=== PATIENT | male | born 1970 | race Caucasian/White ===

== ENCOUNTER 2017-11-09 21:44 | Emergency (ER) | payer MEDICARE, MEDICAID ==
[2017-11-09] MEDS ORDERED: Ibuprofen TAB* 200 MG PO ONE (22:11)
[2017-11-09 22:32] VITALS: BP 122/81
--- NOTE | 2017-11-16 14:30 | ED ---
Manan Correa Abhishek, scribed for Arabella Tirado MD on 11/09/17 at 2214 . Substance Abuse/Use - HPI Summary HPI Summary: This patient is a 47 year old M BIBA with a chief complaint of back pain since yesterday. Patient described the pain as constant and states that he is in a Drug rehab program for opiate abuse. Pertinent PMHx includes chronic back pain, and opiate substance abuse (Heroin). Pt later states he was able to obtain an illegal amount of opiates "off the streets." The patient rates the pain 7/10 in severity. Symptoms aggravated by nothing. Symptoms alleviated by nothing. Patient reports only seeing out of one eye, ear ache, MCELROY (chronic), chronic abd pain. Patient denies urinary incontinence, ambulation, irregular bowel movement , urinary burning, urinary pain, rashes, bruises. He frequents a pain clinic and is given different pain medications by different physicians. Last dosage of narcotics: oxycodone - two months ago, and suboxone - this morning. - History Of Current Complaint Chief Complaint: EDBackInjuryPain Stated Complaint: LOWER BACK PAIN Time Seen by Provider: 11/09/17 21:58 Hx Obtained From: Patient Ingestion History: Type/Name Of Drug - Opiates Timing Of Abuse: Intermittent Aggravating Factor(s): Nothing Alleviating Factor(s): Nothing Associated Signs And Symptoms: Other: - ear ache, MCELROY (chronic), chronic abd pain. Negative urinary incontinence, ambulation, irregular bowel movement, urinary burning, urinary pain, rashes, and bruises. Related Hx: Possible Multi Drug Ingestion, Prior Drug Abuse Counseling/Admission - Allergies/Home Medications Allergies/Adverse Reactions: Allergies Allergy/AdvReac Type Severity Reaction Status Date / Time Sulfamethoxazole Allergy Severe Anaphylatic Verified 11/01/16 14:11 w/Trimethoprim Shock [From Bactrim] Quinolones Allergy Unknown Unknown Verified 11/01/16 14:11 Reaction Details Tramadol Allergy Unknown Unknown Verified 11/01/16 14:11 Reaction Details Carbamazepine [From Tegretol] Allergy throat Verified 11/01/16 14:11 swelling Ciprofloxacin Allergy Anaphylatic Verified 11/01/16 14:11 Shock Erythromycin Allergy Hives Verified 11/01/16 14:11 Gabapentin [From Neurontin] Allergy sedation Verified 11/01/16 14:11 Iodinated Diagnostic Agents Allergy Anaphylatic Verified 11/01/16 14:11 Shock Ketorolac Tromethamine Allergy Vomiting Verified 11/01/16 14:11 [From Toradol] Moxifloxacin [From Avelox] Allergy Anaphylatic Verified 11/01/16 14:11 Shock Quetiapine [From Seroquel] Allergy See Comment Verified 11/01/16 14:11 Trazodone Allergy throat Verified 11/01/16 14:11 swells Valproic Acid [From Depakote] Allergy sedation Verified 11/01/16 14:11 Ziprasidone [From Geodon] Allergy See Comment Verified 11/01/16 14:11 PT HAS 39 MED ALLERGIES - Allergy See Comment Uncoded 11/01/16 14:11 ?NAMES PMH/Surg Hx/FS Hx/Imm Hx Endocrine/Hematology History: Denies: Hx Diabetes - "BORDERLINE"-CONTROLLED BY DIET, Hx Thyroid Disease Cardiovascular History: Denies: Hx Hypertension, Hx Pacemaker/ICD Respiratory History: Denies: Hx Asthma, Hx Chronic Obstructive Pulmonary Disease (COPD) GI History: Denies: Hx Ulcer History: Denies: Hx Renal Disease Sensory History: Denies: Hx Hearing Aid Neurological History: Reports: Other Neuro Impairments/Disorders - TERETS Psychiatric History: Reports: Hx Panic Disorder - ANXIETY - Surgical History Surgery Procedure, Year, and Place: Rt knee surgery- 1985 -. APPENDECTOMY. 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, LOWER BRAIN TISSUE REMOVED - DUE TO INFECTION, PLATE IN FOREHEAD - Immunization History Date of Tetanus Vaccine: UTD Date of Influenza Vaccine: 07/19/16 Infectious Disease History: No Infectious Disease History: Denies: Hx Hepatitis, Hx Human Immunodeficiency Virus (HIV), Traveled Outside the [place] in Last 30 Days - Family History Known Family History: Positive: Hypertension, Diabetes - Social History Alcohol Use: None Hx Substance Use: Yes Substance Use Type: Reports: Other - Opiates Substance Use Comment - Amount & Last Used: crack once in a while Smoking Status (MU): Current Every Day Smoker Type: Cigarettes Amount Used/How Often: 1/2 PPD Review of Systems Constitutional: Negative Eyes: Other - Only able to see out of one eye Positive: Ear Ache Cardiovascular: Negative Respiratory: Negative Gastrointestinal: Other - Negative bowel incontinence Positive: Abdominal Pain Negative: burning, incontinence, pain Musculoskeletal: Other - Negative ambulation Positive: Myalgia - Back pain Negative: Rash, Bruising Positive: Headache Psychological: Normal All Other Systems Reviewed And Are Negative: No Physical Exam - Summary Physical Exam Summary: Appearance: Alert, conversive, nontoxic appearing Skin: Warm, dry, no mottling, no rashes, no contusions HEENT: Right eye deviates out Neck: No masses on the neck, supple Respiratory: Clear to auscultation, breath sounds present, no rales, no rhonchi , no wheezes Cardiovascular: RRR, pulses are symmetrical in both lower and upper extremities Abdomen: No bowel incontinence Bowel Sounds: Present Musculoskeletal: No CVA tenderness, no obvious deformity, moving all extremities in a grossly normal manner Pt is able get up and get off the bed, able to ambulate but walking with his back hunched over Neurological: No saddle paresthesia, Genitourinary: No urinary incontinence, Psychiatric: Normal affect and mood Triage Information Reviewed: Yes Vital Signs On Initial Exam: Initial Vitals Temp Pulse Resp BP Pulse Ox 99.1 F 83 16 132/94 94 11/09/17 21:49 11/09/17 21:49 11/09/17 21:49 11/09/17 21:49 11/09/17 21:49 Vital Signs Reviewed: Yes Diagnostics - Vital Signs Vital Signs Temp Pulse Resp BP Pulse Ox 11/09/17 21:49 99.1 F 83 16 132/94 94 - Laboratory Lab Statement: Any lab studies that have been ordered have been reviewed, and results considered in the medical decision making process. Course/Dx - Course Course Of Treatment: The pt arrived to the [facility] via ambulance and presented chief complaint of back pain. Pt also reports of only seeing out of one eye, ear ache, MCELROY (chronic), chronic abd pain. Patient denies urinary incontinence, ambulation, irregular bowel movement, urinary burning, urinary pain, rashes, bruises. He frequents a pain clinic and is given different pain medications by different physicians. Pt is able get up and get off the bed, able to ambulate but walking with his back hunched over. We recommended following up with pain management doctor by tomorrow. Pt is also recommended to receive medication from only one doctor. The pt will be discharged home with a dx of narcotic dependence and chronic pain. Upon recieving discharge paperwork, pt was able to ambulate with no discomfort when leaving the [facility]. - Diagnoses Provider Diagnoses: Narcotic dependence, Chronic pain Discharge - Discharge Plan Condition: Stable Disposition: HOME Patient Education Materials: Chronic Back Pain (ED) Referrals: Ryan Villa MD [Primary Care Provider] - Additional Instructions: It is IMPERATIVE that all pain medications come from one physician, your pain management doctor. return if worse or any new symptoms. REturn if worse or any new symptoms. The documentation as recorded by the Manan vasquez Abhishek accurately reflects the service I personally performed and the decisions made by , Arabella Tirado MD.
== END 2017-11-09 22:30 | disposition home or self-care (01) ==
LOC: ED 21:44
DX: F11.20 Opioid dependence, uncomplicated (principal); T40.2X5A Adverse effect of other opioids, initial encounter; G89.29 Other chronic pain; F17.210 Nicotine dependence, cigarettes, uncomplicated; Z88.5 Allergy status to narcotic agent; Z88.8 Allergy status to other drugs, medicaments and biological substances; Z88.3 Allergy status to other anti-infective agents; Z91.041 Radiographic dye allergy status
CPT/HCPCS: 99282; A9270-GY

== ENCOUNTER 2017-11-14 13:33 | Emergency (ER) | payer MEDICARE, MEDICAID ==
--- NOTE | 2017-11-14 15:40 | UC ---
Boston Correa Gabriel, scribed for Micah Mcginnis MD on 11/14/17 at 1502 . Skin Complaint HPI - HPI Summary HPI Summary: This patient is a 47 year old M presenting to [facility] complaining of multiple issues, most began over a week ago. The patient rates the pain 6/10 in severity. Patient reports subjective fever, back pain, rash, diaphoresis, weakness in LE, difficulty swallowing, and productive cough with green sputum. Patient denies chills, vision change, and unilateral weakness. The pain from his lower back radiates into his legs, disabling him from walking for several days. He describes the rash as painful, oozing, blisters located on his back, buttocks, trunk, and testicles. He states he is constantly sweating. He believes his back pain is due to elevated LFTs and has a history of HEP C. Additionally he states when he exhales slowly it sounds like a cat meowing. He was seen in the ED 4 days ago and states they refused to perform tests on him and discharged him. - History of Current Complaint Chief Complaint: UCBackPain Stated Complaint: back pain, HIP PAIN, AND LEG PAIN Hx Obtained From: Patient Onset/Duration: Lasting Weeks, Still Present Onset Severity: Mild Current Severity: Mild Pain Intensity: 6 Pain Scale Used: 0-10 Numeric Character: Redness, Raised, Painful Associated Signs & Symptoms: Positive: Diaphoresis, Fever, Cough, Throat Tightening. Negative: Chills - Allergy/Home Medications Allergies/Adverse Reactions: Allergies Allergy/AdvReac Type Severity Reaction Status Date / Time Sulfamethoxazole Allergy Severe Anaphylatic Verified 11/01/16 14:11 w/Trimethoprim Shock [From Bactrim] Quinolones Allergy Unknown Unknown Verified 11/01/16 14:11 Reaction Details Tramadol Allergy Unknown Unknown Verified 11/01/16 14:11 Reaction Details Carbamazepine [From Tegretol] Allergy throat Verified 11/01/16 14:11 swelling Ciprofloxacin Allergy Anaphylatic Verified 11/01/16 14:11 Shock Erythromycin Allergy Hives Verified 11/01/16 14:11 Gabapentin [From Neurontin] Allergy sedation Verified 11/01/16 14:11 Iodinated Diagnostic Agents Allergy Anaphylatic Verified 11/01/16 14:11 Shock Ketorolac Tromethamine Allergy Vomiting Verified 11/01/16 14:11 [From Toradol] Moxifloxacin [From Avelox] Allergy Anaphylatic Verified 11/01/16 14:11 Shock Quetiapine [From Seroquel] Allergy See Comment Verified 11/01/16 14:11 Trazodone Allergy throat Verified 11/01/16 14:11 swells Valproic Acid [From Depakote] Allergy sedation Verified 11/01/16 14:11 Ziprasidone [From Geodon] Allergy See Comment Verified 11/01/16 14:11 PT HAS 39 MED ALLERGIES - Allergy See Comment Uncoded 11/01/16 14:11 ?NAMES Home Medications: Home Medications Buprenorphine HCl-Naloxone HCl [Suboxone 4-1 mg] 8 mg PO DAILY 11/14/17 [ History Confirmed 11/14/17] Cetirizine HCl [Zyrtec Allergy 10 MG TAB] 10 mg PO DAILY 11/14/17 [History Confirmed 11/14/17] Venlafaxine TAB (NF) [Effexor TAB (NF)] 35 mg PO DAILY 11/14/17 [History Confirmed 11/14/17] busPIRone TAB* [Buspar *] 30 mg PO BID 11/14/17 [History Confirmed 11/14/17] Review of Systems Constitutional: Fever, Other - diaphoresis Skin: Rash ENT: Other - throat tightness Respiratory: Cough Musculoskeletal: Other: - lower back pain, LE pain All Other Systems Reviewed And Are Negative: Yes PMH/Surg Hx/FS Hx/Imm Hx Endocrine History: Hyperthyroidism Cardiovascular History: Hypertension Other History Of: Hepatitis C - Surgical History Surgical History: Yes Surgery Procedure, Year, and Place: Rt knee surgery- 1985 -. APPENDECTOMY. 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, LOWER BRAIN TISSUE REMOVED - DUE TO INFECTION, PLATE IN FOREHEAD - Family History Known Family History: Positive: Cardiac Disease, Hypertension, Diabetes, Other - lung cancer - Social History Alcohol Use: None Substance Use Type: None Substance Use Comment - Amount & Last Used: crack once in a while Smoking Status (MU): Former Smoker Type: Cigarettes Amount Used/How Often: 1/2 PPD When Did the Patient Quit Smoking/Using Tobacco: 3 months Household Exposure Type: Cigarettes - Immunization History Most Recent Influenza Vaccination: 2016 Physical Exam Triage Information Reviewed: Yes Appearance: Well-Appearing, Pain Distress - mild low back Vital Signs: Initial Vital Signs Temp 96.8 F 11/14/17 13:57 Pulse 74 11/14/17 13:57 Resp 24 11/14/17 13:57 BP 139/94 11/14/17 13:57 Pulse Ox 100 11/14/17 13:57 Vital Signs Reviewed: Yes Eyes: Positive: Conjunctiva Clear ENT: Positive: Normal ENT inspection Neck: Positive: Supple, Nontender. Negative: Nuchal Rigidity Respiratory: Positive: Chest non-tender, Lungs clear, Normal breath sounds, No respiratory distress Cardiovascular: Positive: RRR, No Murmur Abdomen Description: Positive: Nontender Musculoskeletal: Positive: ROM Intact Neurological: Positive: Alert, Other: - his gait is broad based and appears to be uncomfortable walking due to his low back hurting. Psychological: Positive: Age Appropriate Behavior Skin: Positive: Other - he has a generalized rash that is scab like and primary with pustules. Located on trunk mainly. Course/Dx - Course Course Of Treatment: 47 yr old male who appears older than stated age with rash that he states initially appears with white pustules that pop and drain pus, and is painful but not puritic. He has low back pain. Reports sweats , fever, chills. DW Vinod Sellers MD at [facility] who is aware of the transfer. Patient to go there for further work up and diagnostic testing. - Diagnoses Provider Diagnoses: back pain. broad based gait. pustular and scab like rash. sweats and chills. Discharge - Discharge Plan Condition: Good Disposition: TRANS HIGHER LVL OF CARE FAC Referrals: Ryan Villa MD [Primary Care Provider] - The documentation as recorded by the Boston vasquez Gabriel accurately reflects the service I personally performed and the decisions made by , Micah Mcginnis MD.
[2017-11-14 15:48] VITALS: BP 121/80
== END 2017-11-14 16:07 | disposition short-term general hospital (02) ==
LOC: UCEAST 13:33
DX: M54.5 Low back pain (principal); R21 Rash and other nonspecific skin eruption; R68.83 Chills (without fever); R61 Generalized hyperhidrosis; R53.1 Weakness; R13.10 Dysphagia, unspecified; R05 Cough; E05.90 Thyrotoxicosis, unspecified without thyrotoxic crisis or storm; I10 Essential (primary) hypertension; Z86.19 Personal history of other infectious and parasitic diseases; Z90.89 Acquired absence of other organs; Z88.5 Allergy status to narcotic agent; Z88.2 Allergy status to sulfonamides; Z88.8 Allergy status to other drugs, medicaments and biological substances; Z88.1 Allergy status to other antibiotic agents; Z91.041 Radiographic dye allergy status; F14.90 Cocaine use, unspecified, uncomplicated; Z87.891 Personal history of nicotine dependence
CPT/HCPCS: 99213; G0463

== ENCOUNTER 2017-11-14 16:27 | Emergency (ER) | payer MEDICARE, MEDICAID ==
[2017-11-14 18:25] LABS: ABS Basophils 0.1 10^3/ul (0-0.2); ABS Eosinophils 0.4 10^3/ul (0-0.6); ABS Lymphocytes 3.2 10^3/ul (1.0-4.8); ABS Monocytes 1.2 10^3/ul (0-0.8); ABS Neutrophils 3.2 10^3/ul (1.5-7.7); ABS Nucleated RBC 0 10^3/ul; Eosinophil % 5.3 % (0-6); Hematocrit 42 % (42-52); Hemoglobin 14.1 g/dl (14.0-18.0); Lymphocyte % 39.7 % (25-47); Mean Corpuscular HGB Conc 34 g/dl (31-36); Mean Corpuscular Hemoglobin 31 pg (27-31); Mean Corpuscular Volume 91 fL (80-94); Mean Platelet Volume 7 um3 (7.4-10.4); Nucleated Red Blood Cells % 0.2; Platelet Count 261 10^3/ul (150-450); Red Blood Count 4.61 10^6/ul (4.0-5.4); Red Cell Distribution Width 14 % (10.5-15)
[2017-11-14 18:35] LABS: INR 0.9 (0.77-1.02)
[2017-11-14 18:39] LABS: EGFR Non-African American 86.4 (>60)
--- NOTE | 2017-11-14 18:42 | RAD ---
INDICATION: Generalized illness. Short of breath COMPARISON: April 23, 2005 TECHNIQUE: PA and lateral dual-energy views were obtained. FINDINGS: Bones/Soft Tissues: There are no acute bony findings. Cardiomediastinal: The cardiomediastinal silhouette is normal. Lungs: There are no infiltrates. Pleura: There are no pleural effusions. Other: None IMPRESSION: NO ACTIVE DISEASE.
[2017-11-14 20:44] VITALS: BP 126/86
[2017-11-14] MEDS ORDERED: Magic Mouth Was-BEN/MAAL/LIDO SWISH SPIT SCH (21:00)
--- NOTE | 2017-11-15 01:36 | ED ---
Complex/Multi-Sys Presentation - HPI Summary HPI Summary: Patient presents to the ED with multiple complaints. He states he has been experience back pain and weakness in the legs with other symptoms 6 times in the last 18 months. When he is having these symptoms, he states he is unable to walk long distances and feels very weak. He also notes to some mouth ulcers and diffuse rash to the chest. He has had these symptoms many times which has always improved with spontaneous resolution after 5 days. These symptoms always occur when his liver enzymes are elevated when he gets under stress. Hx of Hep C which he states "flares up" from time to time. Denies sick contacts. Denies fevers, chills but notes to some sweats intermittently. He is at cars currently in rehab. Last drug use 2 weeks ago. - History Of Current Complaint Chief Complaint: EDBackInjuryPain Time Seen by Provider: 11/14/17 16:45 Hx Obtained From: Patient Onset/Duration: Gradual Onset Timing: Constant Severity Currently: Mild Severity Initially: Mild Associated Signs And Symptoms: Positive: Immunocompromised - Allergies/Home Medications Allergies/Adverse Reactions: Allergies Allergy/AdvReac Type Severity Reaction Status Date / Time Sulfamethoxazole Allergy Severe Anaphylatic Verified 11/01/16 14:11 w/Trimethoprim Shock [From Bactrim] Quinolones Allergy Unknown Unknown Verified 11/01/16 14:11 Reaction Details Tramadol Allergy Unknown Unknown Verified 11/01/16 14:11 Reaction Details Carbamazepine [From Tegretol] Allergy throat Verified 11/01/16 14:11 swelling Ciprofloxacin Allergy Anaphylatic Verified 11/01/16 14:11 Shock Erythromycin Allergy Hives Verified 11/01/16 14:11 Gabapentin [From Neurontin] Allergy sedation Verified 11/01/16 14:11 Iodinated Diagnostic Agents Allergy Anaphylatic Verified 11/01/16 14:11 Shock Ketorolac Tromethamine Allergy Vomiting Verified 11/01/16 14:11 [From Toradol] Moxifloxacin [From Avelox] Allergy Anaphylatic Verified 11/01/16 14:11 Shock Quetiapine [From Seroquel] Allergy See Comment Verified 11/01/16 14:11 Trazodone Allergy throat Verified 11/01/16 14:11 swells Valproic Acid [From Depakote] Allergy sedation Verified 11/01/16 14:11 Ziprasidone [From Geodon] Allergy See Comment Verified 11/01/16 14:11 PT HAS 39 MED ALLERGIES - Allergy See Comment Uncoded 11/01/16 14:11 ?NAMES PMH/Surg Hx/FS Hx/Imm Hx Previously Healthy: Yes Endocrine/Hematology History: Reports: Hx Thyroid Disease - hyper Denies: Hx Diabetes - "BORDERLINE"-CONTROLLED BY DIET Cardiovascular History: Denies: Hx Hypertension, Hx Pacemaker/ICD Respiratory History: Denies: Hx Asthma, Hx Chronic Obstructive Pulmonary Disease (COPD) GI History: Denies: Hx Ulcer History: Denies: Hx Renal Disease Sensory History: Denies: Hx Hearing Aid Neurological History: Reports: Other Neuro Impairments/Disorders - TERETS Psychiatric History: Reports: Hx Panic Disorder - ANXIETY - Surgical History Surgery Procedure, Year, and Place: Rt knee surgery- 1985 -. APPENDECTOMY. 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, LOWER BRAIN TISSUE REMOVED - DUE TO INFECTION, PLATE IN FOREHEAD - Immunization History Date of Tetanus Vaccine: UTD Date of Influenza Vaccine: 07/19/16 Hx Pertussis Vaccination: No Immunizations Up to Date: Unable to Obtain/Confirm Infectious Disease History: Yes Infectious Disease History: Reports: Hx Hepatitis - Hep C Denies: Hx Human Immunodeficiency Virus (HIV), Traveled Outside the [place] in Last 30 Days - Family History Known Family History: Positive: Cardiac Disease, Hypertension, Diabetes, Other - lung cancer - Social History Occupation: Unemployed Lives: Alone Alcohol Use: None Hx Substance Use: No Substance Use Type: Reports: None Substance Use Comment - Amount & Last Used: crack once in a while Smoking Status (MU): Former Smoker Type: Cigarettes Amount Used/How Often: 1/2 PPD Review of Systems Constitutional: Negative Negative: Fever, Chills, Fatigue Eyes: Negative Positive: Other - lesions in the mouth Cardiovascular: Negative Respiratory: Negative Genitourinary: Negative Positive: no symptoms reported, see HPI Positive: Arthralgia - bilateral leg pain Positive: Weakness, Paresthesia Psychological: Normal All Other Systems Reviewed And Are Negative: Yes Physical Exam Triage Information Reviewed: Yes Vital Signs On Initial Exam: Initial Vitals Temp Pulse Resp BP Pulse Ox 98 F 57 12 124/90 94 11/14/17 16:49 11/14/17 16:49 11/14/17 16:49 11/14/17 16:49 11/14/17 16:49 Vital Signs Reviewed: Yes Appearance: Positive: Well-Appearing, No Pain Distress, Well-Nourished Skin: Positive: Warm, Skin Color Reflects Adequate Perfusion Head/Face: Positive: Normal Head/Face Inspection Eyes: Positive: EOMI, PARVEZ, Conjunctiva Clear ENT: Positive: Other - small ulcerations to the inner buccal mucosa Neck: Positive: Supple, No Lymphadenopathy Respiratory/Lung Sounds: Positive: Breath Sounds Present Cardiovascular: Positive: RRR, Pulses are Symmetrical in both Upper and Lower Extremities Musculoskeletal: Positive: Other - patient is ambulating, but with pain. no weakness bilaterally is noted on exam Neurological: Positive: Alert, Oriented to Person Place, Time, CN Intact II-III , Speech Normal. Negative: Pronator Drift Present Psychiatric: Positive: Normal, Affect/Mood Appropriate AVPU Assessment: Alert - [place] Coma Scale Coma Scale Total: 15 Diagnostics - Vital Signs Vital Signs Temp Pulse Resp BP Pulse Ox 11/14/17 20:43 98.4 F 67 16 126/86 94 11/14/17 16:49 98 F 57 12 124/90 94 - Laboratory Lab Results: Lab Results 11/14/17 11/14/17 11/14/17 Range/Units 18:03 18:03 18:03 WBC 8.0 (3.5-10.8) 10^3/ul RBC 4.61 (4.0-5.4) 10^6/ul Hgb 14.1 (14.0-18.0) g/dl Hct 42 (42-52) % MCV 91 (80-94) fL MCH 31 (27-31) pg MCHC 34 (31-36) g/dl RDW 14 (10.5-15) % Plt Count 261 (150-450) 10^3/ul MPV 7 L (7.4-10.4) um3 Neut % (Auto) 39.5 (38-83) % Lymph % (Auto) 39.7 (25-47) % Bradley % (Auto) 14.8 H (1-9) % Eos % (Auto) 5.3 (0-6) % Baso % (Auto) 0.7 (0-2) % Absolute Neuts (auto) 3.2 (1.5-7.7) 10^3/ul Absolute Lymphs (auto) 3.2 (1.0-4.8) 10^3/ul Absolute Monos (auto) 1.2 H (0-0.8) 10^3/ul Absolute Eos (auto) 0.4 (0-0.6) 10^3/ul Absolute Basos (auto) 0.1 (0-0.2) 10^3/ul Absolute Nucleated RBC 0 10^3/ul Nucleated RBC % 0.2 ESR 19 H (0-14) mm/Hr INR (Anticoag Therapy) 0.90 (0.77-1.02) APTT 30.2 (26.0-36.3) seconds Sodium 135 (133-145) mmol/L Potassium 3.8 (3.5-5.0) mmol/L Chloride 102 (101-111) mmol/L Carbon Dioxide 28 (22-32) mmol/L Anion Gap 5 (2-11) mmol/L BUN 11 (6-24) mg/dL Creatinine 0.94 (0.67-1.17) mg/dL Est GFR ( Amer) 111.1 (>60) Est GFR (Non-Af Amer) 86.4 (>60) BUN/Creatinine Ratio 11.7 (8-20) Glucose 96 (70-100) mg/dL Lactic Acid (0.5-2.0) mmol/L Calcium 9.3 (8.6-10.3) mg/dL Total Bilirubin 0.50 (0.2-1.0) mg/dL AST 60 H (13-39) U/L ALT 91 H (7-52) U/L Alkaline Phosphatase 65 (34-104) U/L C-Reactive Protein 14.97 H (< 5.00) mg/L Total Protein 7.4 (6.4-8.9) g/dL Albumin 4.0 (3.2-5.2) g/dL Globulin 3.4 (2-4) g/dL Albumin/Globulin Ratio 1.2 (1-3) Influenza A (Rapid) (Negative) Influenza B (Rapid) (Negative) 11/14/17 11/14/17 Range/Units 18:03 18:21 WBC (3.5-10.8) 10^3/ul RBC (4.0-5.4) 10^6/ul Hgb (14.0-18.0) g/dl Hct (42-52) % MCV (80-94) fL MCH (27-31) pg MCHC (31-36) g/dl RDW (10.5-15) % Plt Count (150-450) 10^3/ul MPV (7.4-10.4) um3 Neut % (Auto) (38-83) % Lymph % (Auto) (25-47) % Bradley % (Auto) (1-9) % Eos % (Auto) (0-6) % Baso % (Auto) (0-2) % Absolute Neuts (auto) (1.5-7.7) 10^3/ul Absolute Lymphs (auto) (1.0-4.8) 10^3/ul Absolute Monos (auto) (0-0.8) 10^3/ul Absolute Eos (auto) (0-0.6) 10^3/ul Absolute Basos (auto) (0-0.2) 10^3/ul Absolute Nucleated RBC 10^3/ul Nucleated RBC % ESR (0-14) mm/Hr INR (Anticoag Therapy) (0.77-1.02) APTT (26.0-36.3) seconds Sodium (133-145) mmol/L Potassium (3.5-5.0) mmol/L Chloride (101-111) mmol/L Carbon Dioxide (22-32) mmol/L Anion Gap (2-11) mmol/L BUN (6-24) mg/dL Creatinine (0.67-1.17) mg/dL Est GFR ( Amer) (>60) Est GFR (Non-Af Amer) (>60) BUN/Creatinine Ratio (8-20) Glucose (70-100) mg/dL Lactic Acid 0.6 (0.5-2.0) mmol/L Calcium (8.6-10.3) mg/dL Total Bilirubin (0.2-1.0) mg/dL AST (13-39) U/L ALT (7-52) U/L Alkaline Phosphatase (34-104) U/L C-Reactive Protein (< 5.00) mg/L Total Protein (6.4-8.9) g/dL Albumin (3.2-5.2) g/dL Globulin (2-4) g/dL Albumin/Globulin Ratio (1-3) Influenza A (Rapid) Negative (Negative) Influenza B (Rapid) Negative (Negative) Result Diagrams: 11/14/17 18:03 11/14/17 18:03 Lab Statement: Any lab studies that have been ordered have been reviewed, and results considered in the medical decision making process. Complex Multi-Symp Course/Dx Course Of Treatment: During the course of treatment, patient is evaluated for multiple complaints. Flu negative. All labs are negative. Chest xray negative. D/t spontaneous resolution (like his other episodes) - CT will not offer much help. He is referred back to his PCP for further evaluation and defer to them for any imaging. He is OK with this plan. I have given him magic mouth wash for some ulcerations in the mouth. No other signs of a herpetic infection. - Diagnoses Provider Diagnoses: Back pain, Mouth ulcer Discharge - Discharge Plan Condition: Stable Disposition: HOME Forms: *Gen. Provider Communication Referrals: Ryan Villa MD [Primary Care Provider] - Additional Instructions: Magic mouth wash up to every 4 hours as needed for mouth pain Please follow up with your PCP within 1 week. As discussed, your xray, flu and all labs were OK today. Nothing was found to be a source of your back pain, I recommend follow up with PCP to further investigate this.
== END 2017-11-14 20:43 | disposition home or self-care (01) ==
LOC: ED 16:27
DX: M54.9 Dorsalgia, unspecified (principal); K12.0 Recurrent oral aphthae; R53.1 Weakness; Z87.891 Personal history of nicotine dependence
CPT/HCPCS: 36415; 71046; 80053; 83605; 85025; 85610; 85652; 85730; 86140; 87040; 87502; 99283; A9270-GY

== ENCOUNTER 2017-11-28 11:58 | Emergency (ER) | payer MEDICARE, MEDICAID ==
--- OUTSIDE RECORDS SUMMARY | 2017-11-28 12:17 | XMS REPORT ---
:1970 External Reference #:[id number] Author Organization [facility] Address [address] [address] Phone [phone] Care Team Providers Name Role Phone Ryan Villa MD Primary Care Physician Unavailable Payers Type Date Identification Numbers Payment Provider Subscriber Medicare Primary Policy Number: [id number] Medicare Altagracia Rodriguez PayID: [id number] [address] [place] [address] Medigap Part B Expires: 2016 Policy Number: [id number] Medicaid Altagracia Rodriguez Group Name: [id number] [address] PayID: [id number] [place] [address] Medigap Part B Effective: 2017 Policy Number: [id number] Medicaid Altagracia Rodriguez Group Name: 1 1 [address] PayID: [id number] [place] [address] Problems Date Description Provider Status Onset: 12/20/2011 Chronic pain syndrome Temi Israel M.D. Active Onset: 08/30/2016 Anxiety state Estrella Cooper MD Active Onset: 08/30/2016 Insomnia Estrella Cooper MD Active Family History Date Family Member(s) Problem(s) Comments General Liver Cancer Father Skin cancer ; at HTN, Heart disease age83 Mother at age 73 chronic sinusitis RA, Cancer, unknown primary, COPD/Lung cancer Siblings 2 One brother healthy Other sinusitis, arthritis, ?COPD Social History Type Date Description Comments Marital Status Occupation Unemployed; looking for work Cigarette Use Bought Nicotine patch; has not started using ETOH Use Denies alcohol use Allergic to ETOH Smoking Patient is a current smoker, smokes every day Recreational Drug Use Denies Drug Use 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 Attending [employer] Smoking Light tobacco smoker (10 or fewer cigarettes/day) Smoking 1 1/2PPD x 33 years Daily Caffeine Consumes on average 1 cup of regular coffee per day Daily Caffeine Soda 1-2 times/week ; coffee Drinks mostly juice 1-2/week Exercise Type/Frequency Exercises regularly (walks a lot) General Hx Text lives alone cig 1/2-1 pk/d 33 yr etoh no exercise no caffeine occas. Allergies, Adverse Reactions, Alerts Date Description Reaction Status Severity Comments 12/14/2011 Neurontin Shock active 12/14/2011 Depakote Shock active 12/14/2011 Floxin Paralyzed from the active waist down 12/14/2011 Trazodone Anaphylaxis active 12/14/2011 Gabapentin active 12/14/2011 Carbamazepine active 12/14/2011 Erythromycin Nausea and Vomiting active 12/14/2011 Levaquin Contact dermatitis, active Nausea and Vomiting 12/14/2011 Ofloxacin Contact dermatitis, active Nausea and Vomiting 12/14/2011 Quinolones active 12/14/2011 Avelox active 04/04/2015 Seroquel active involentary movements 04/04/2015 Geodon active bad effect 04/04/2016 Bactrim- ds active throat swelling 10/12/2016 Tramadol active Moderate Medications Medication Date Status Form Strength Qnty SIG Indications Ordering Provider Ketoconazole 25/ Active Powder 100gm Apply to B35.3 Brad 2017 affected JUSTEN Yuan areas twice daily Buspirone HCL 07/29/ Active Tablets 10mg 90tabs take 2 Brad 2017 tablets by JUSTEN Yuan mouth 2 times daily. Increase to 2 1/2 tbs bid after 3 days. Can increase 3 tablets bid after 3 days Buspirone HCL 25/ Active Tablets 10mg 90tabs take 2 Brad 2017 tablets by JUSTEN Yuan mouth 2 times daily. Increase to 2 1/2 tbs bid after 3 days. Can increase 3 tablets bid after 3 days Hydroxyzine HCL 06/19/ Active Tablets 50mg 120tab 1-2 G47.00 Brad 2017 s tablets 4 JUSTEN Yuan times daily as needed for itching Ambien 03/07/ Active Tablets 5mg 30tabs 1 tab by Estrella Royal mouth MD Allison every night as needed Pepcid 04/04/ Active Tablets 20mg 60tabs take 1 K21.9 Brad 2016 tablet by JUSTEN Yuan mouth two times daily as needed Meclizine / Active Capsules 25mg as needed Unknown 0000 Singulair 00/ Active Tablets 10mg 1 by mouth Unknown 0000 every day prn Permethrin 06/19/ Hx Cream 5% 60gm apply R21 Brad 2016 - cream from JUSTEN Yuan 07/29/ your neck 2017 to the soles of your feet. let sit for 8-14 hours and wash off. repeat in 7 days. Buspirone HCL 06/19/ Hx Tablets 5mg 180tab take 2 11/05 Brad 2017 - s tab twice JUSTEN Yuan 07/29/ a day x 3 2016 days then increase to 3 tab twice a day tab bid. Nicotine 06/11/ Hx Lozenges 4mg 60unit 1 by mouth Estrella Polacrilex 2017 - s every 4 MD Allison 07/15/ hours as 2017 needed Lunesta 01/08/ Hx Tablets 2mg 30tabs 1 tablet Estrella 2016 - by mouth MD Allison 04/15/ for sleep 2017 as needed Xanax 01/08/ Hx Tablets 1mg 60tabs 1-2 tabs Estrella 2016 - as needed MD Allison 07/15/ for sleep 2017 Xanax XR 11/26/ Hx Tablets ER 2mg 30tabs 1 tablet G47.00 Estrella 2016 - 24HR at bedtime MD Allison 11/27/ for 2017 anxiety Lunesta 11/26/ Hx Tablets 1mg 30tabs 1 tab by G47.00 Estrella 2017 - mouth MD Allison 01/08/ every 2016 night as needed for sleep Azithromycin 11/01/ Hx Tablets 250mg 6tabs 2 tabs by J01.90 Brad 2015 - mouth JUSTEN Yuan 11/06/ every day 2017 x1 day, 1 tab by mouth every day x 4 days Xanax XR 08/30/ Hx Tablets ER 2mg 30tabs 1 tablet F41.9 Estrella 2015 - 24HR at bedtime MD Allison 08/30/ for 2016 anxiety Xanax 08/30/ Hx Tablets 2mg 30tabs 1 tablet Estrella 2015 - at bedtime MD Allison 01/08/ for 2017 anxiety Oxycodone HCL 08/27/ Hx Tablets 5mg 28tabs 1 tablet R10.9 [place] 2015 - every 12 JUSTEN Yuan 06/23/ hours as 2017 needed for pain. Oxycodone HCL 08/13/ Hx Tablets 5mg 14tabs 1 tablet R10.9 Brad 2015 - every 12 JUSTEN Yuna 08/23/ hours as 2015 needed for pain Oxycodone HCL 07/30/ Hx Tablets 5mg 14tabs 1 tablet R10.9 [place] 2015 - every 12 JUSTEN Yuan 08/06/ hours as 2015 needed for pain Ketoconazole 07/30/ Hx Cream 2% 15gm apply to [place] 2015 - affected JUSTEN Yuan 08/29/ area twice 2015 daily Dexilant 04/11/ Hx Capsules 30mg 30caps one K21.9 [place] 2015 - capsule JUSTEN Yuan 07/30/ daily 2016 No Active 04/04/ Hx Unknown Medications 2015 - 2015 Lansoprazole 04/04/ Hx Capsules 15mg 30caps 1 tablet K21.9 [place] 2016 - DR daily JUSTEN Yuan 2015 Lunesta 04/04/ Hx Tablets 2mg 30tabs one tablet G47.00 [place] 2015 - by mouth JUSTEN Yuan 11/25/ 2016 night at bedtime as needed for insomnia Hydrocodone/Rafael / Hx Tablets 10-325mg 80tabs 2 po q 6 Temi taminophen 0000 - hrs prn Jhonatan, 04/04/ pain M.D. 2012 Methadose / Hx Tablets 10mg 40tabs 1 po q Temi 0000 - 6hrs prn Jhonatan, 04/04/ pain M.D. 2012 Xanax / Hx Tablets 1mg 40tabs 1 po q Temi 0000 - 6hrs prn Jhonatan, 04/04/ pain M.D. 2011 Ambien / Hx Tablets 10mg 30tabs 1 po qhs Unknown 0000 - prn sleep 04/04/ insomnia 2012 Celexa / Hx Tablets 40mg 30tabs 1 po qd Unknown 0000 - 2011 Dexamethasone / Hx Tablets 4mg Take One Unknown 0000 - Tablet By 08/23/ Mouth 2015 Every Day For 7 Days Azithromycin / Hx Tablets 250mg Take 2 Unknown 0000 - Tablets By 08/29/ Mouth On 2015 Day 1 Then 1 Tablet Once Daily On Days 2 10 Prednisone / Hx Tablets 20mg 1 by mouth Unknown 0000 - every day (rx'd by 2015 ENT) Prednisone / Hx Tablets 20mg 20mg daily Unknown 0000 - 2015 Immunizations CPT Code Status Date Vaccine Reaction Lot # [id number] Given 07/29/2017 Influenza Virus Vaccine, No immediate [id number] Quadrivalent, Split, reaction..jh Preservative Free [id number] Given 08/24/2016 Tdap - no immediate adverse [id number] Tetanus/Diptheria/Acellular reaction noted Pertussis [id number] Given 08/24/2016 Influenza Virus Vaccine, no immediate reaction [id number] Quadrivalent, Split Virus, noted Im Use Vital Signs Date Vital Result Comment 11/25/2017 Height 65.5 inches 5'5.50" Weight 182.50 lb Heart Rate 60 /min BP Systolic Sitting 120 mmHg BP Diastolic Sitting 78 mmHg Respiratory Rate 14 /min Body Temperature 97.0 F BMI (Body Mass Index) 29.9 kg/m2 07/29/2017 Height 65.5 inches 5'5.50" Weight 146.00 lb Heart Rate 97 /min BP Systolic Sitting 118 mmHg BP Diastolic Sitting 80 mmHg O2 % BldC Oximetry 98 % BMI (Body Mass Index) 23.9 kg/m2 07/15/2017 Height 65.5 inches 5'5.50" Weight 143.12 lb Heart Rate 98 /min BP Systolic Sitting 120 mmHg BP Diastolic Sitting 80 mmHg Body Temperature 98.3 F O2 % BldC Oximetry 98 % BMI (Body Mass Index) 23.5 kg/m2 06/19/2017 Height 65.5 inches 5'5.50" Weight 143.12 lb Heart Rate 83 /min BP Systolic 100 mmHg BP Diastolic 60 mmHg Body Temperature 97.5 F O2 % BldC Oximetry 99 % BMI (Body Mass Index) 23.5 kg/m2 05/27/2017 Height 65.5 inches 5'5.50" Weight 142.00 lb Heart Rate 100 /min BP Systolic Sitting 124 mmHg BP Diastolic Sitting 88 mmHg Respiratory Rate 14 /min O2 % BldC Oximetry 98 % BMI (Body Mass Index) 23.3 kg/m2 04/16/2017 Height 65.5 inches 5'5.50" Weight 140.25 lb Heart Rate 84 /min BP Systolic Sitting 120 mmHg BP Diastolic Sitting 78 mmHg Respiratory Rate 14 /min Body Temperature 96.9 F BMI (Body Mass Index) 23.0 kg/m2 12/03/2016 Height 65.5 inches 5'5.50" Weight 159.00 lb Heart Rate 90 /min BP Systolic Sitting 110 mmHg BP Diastolic Sitting 80 mmHg Respiratory Rate 14 /min Body Temperature 97.6 F BMI (Body Mass Index) 26.1 kg/m2 11/26/2016 Height 65.5 inches 5'5.50" Weight 155.00 lb Heart Rate 92 /min BP Systolic 106 mmHg BP Diastolic 72 mmHg Respiratory Rate 14 /min O2 % BldC Oximetry 98 % BMI (Body Mass Index) 25.4 kg/m2 11/20/2016 Height 65.5 inches 5'5.50" Weight 155.00 lb Heart Rate 108 /min BP Systolic 110 mmHg BP Diastolic 80 mmHg Body Temperature 98.0 F O2 % BldC Oximetry 98 % BMI (Body Mass Index) 25.4 kg/m2 11/01/2016 Height 65.5 inches 5'5.50" Weight 154.00 lb Heart Rate 91 /min BP Systolic 112 mmHg BP Diastolic 80 mmHg Body Temperature 98.4 F O2 % BldC Oximetry 98 % BMI (Body Mass Index) 25.2 kg/m2 10/12/2016 Height 65.5 inches 5'5.50" Weight 157.00 lb Heart Rate 83 /min BP Systolic 98 mmHg BP Diastolic 78 mmHg Body Temperature 97.3 F O2 % BldC Oximetry 98 % BMI (Body Mass Index) 25.7 kg/m2 09/26/2016 Weight 162.00 lb Heart Rate 100 /min BP Systolic Sitting 138 mmHg BP Diastolic Sitting 98 mmHg Respiratory Rate 15 /min Body Temperature 98.2 F O2 % BldC Oximetry 98 % 09/18/2016 Height 65.5 inches 5'5.50" Weight 162.50 lb Heart Rate 100 /min BP Systolic Sitting 112 mmHg BP Diastolic Sitting 80 mmHg Respiratory Rate 14 /min Body Temperature 97.4 F BMI (Body Mass Index) 26.6 kg/m2 08/30/2016 Height 65.5 inches 5'5.50" Weight 163.25 lb Heart Rate 102 /min BP Systolic Sitting 130 mmHg BP Diastolic Sitting 72 mmHg Respiratory Rate 16 /min O2 % BldC Oximetry 97 % BMI (Body Mass Index) 26.8 kg/m2 Neck Circumference in inches 15.5 08/27/2016 Weight 161.00 lb with shoes Heart Rate 94 /min BP Systolic Sitting 124 mmHg BP Diastolic Sitting 74 mmHg Body Temperature 96.1 F O2 % BldC Oximetry 98 % 08/24/2016 Height 65 inches 5'5" Weight 159.12 lb Heart Rate 84 /min BP Systolic Sitting 124 mmHg BP Diastolic Sitting 80 mmHg Respiratory Rate 14 /min Body Temperature 97.7 F BMI (Body Mass Index) 26.5 kg/m2 07/30/2016 Weight 157.00 lb Heart Rate 98 /min BP Systolic Sitting 122 mmHg BP Diastolic Sitting 76 mmHg Respiratory Rate 15 /min Body Temperature 98.4 F O2 % BldC Oximetry 98 % 04/04/2016 Height 65 inches 5'5" Weight 165.25 lb Heart Rate 78 /min BP Systolic Sitting 98 mmHg BP Diastolic Sitting 64 mmHg Body Temperature 98.4 F O2 % BldC Oximetry 98 % BMI (Body Mass Index) 27.5 kg/m2 02/05/2012 Height 64.50 inches 5'4.50" Est Weight 145.00 lb Heart Rate 100 /min BP Systolic Sitting 134 mmHg BP Diastolic Sitting 80 mmHg BMI (Body Mass Index) 24.5 kg/m2 12/14/2011 Height 64.50 inches 5'4.50" Est Weight 144.00 lb Heart Rate 80 /min BP Systolic Sitting 130 mmHg BP Diastolic Sitting 90 mmHg BMI (Body Mass Index) 24.3 kg/m2 Results Test Date Test Result H/L Range Note Laboratory test finding 11/14/2017 Erythrocyte Sed Rate 19 mm/Hr High 0- 14 Blood Culture SEE RESULT BELOW 1 CBC Auto Diff 11/14/2017 White Blood Count 8.0 10^3/uL 3.5-10.8 Red Blood Count 4.61 10^6/uL 4.0-5.4 Hemoglobin 14.1 g/dL 14.0-18.0 Hematocrit 42 % 42-52 Mean Corpuscular Volume 91 fL 80-94 Mean Corpuscular Hemoglobin 31 pg 27-31 Mean Corpuscular HGB Conc 34 g/dL 31-36 Red Cell Distribution Width 14 % 10.5-15 Platelet Count 261 10^3/uL 150-450 Mean Platelet Volume 7 um3 Low 7.4-10.4 Abs Neutrophils 3.2 10^3/uL 1.5-7.7 Abs Lymphocytes 3.2 10^3/uL 1.0-4.8 Abs Monocytes 1.2 10^3/uL High 0-0.8 Abs Eosinophils 0.4 10^3/uL 0-0.6 Abs Basophils 0.1 10^3/uL 0-0.2 Abs Nucleated RBC 0 10^3/uL Granulocyte % 39.5 % 38-83 Lymphocyte % 39.7 % 25-47 Monocyte % 14.8 % High 1-9 Eosinophil % 5.3 % 0-6 Basophil % 0.7 % 0-2 Nucleated Red Blood Cells % 0.2 Laboratory test finding 11/14/2017 C Reactive Protein 14.97 mg/L High &lt ; 5.00 2 Lactic Acid 0.6 mmol/L 0.5-2.0 3 Comp Metabolic Panel 11/14/2017 Sodium 135 mmol/L 133-145 Potassium 3.8 mmol/L 3.5-5.0 Chloride 102 mmol/L 101-111 Co2 Carbon Dioxide 28 mmol/L 22-32 Anion Gap 5 mmol/L 2-11 Glucose 96 mg/dL 70-100 Blood Urea Nitrogen 11 mg/dL 6-24 Creatinine 0.94 mg/dL 0.67-1.17 BUN/Creatinine Ratio 11.7 8-20 Calcium 9.3 mg/dL 8.6-10.3 Total Protein 7.4 g/dL 6.4-8.9 Albumin 4.0 g/dL 3.2-5.2 Globulin 3.4 g/dL 2-4 Albumin/Globulin Ratio 1.2 1-3 Total Bilirubin 0.50 mg/dL 0.2-1.0 Alkaline Phosphatase 65 U/L 34-104 Alt 91 U/L High 7-52 Ast 60 U/L High 13-39 Egfr Non- 86.4 >60 Egfr 111.1 >60 4 Laboratory test 11/14/2017 Partial Thrombo Time 30.2 seconds 26.0-36.3 finding PTT Inr/Protime 11/14/2017 Inr 0.90 0.77-1.02 Laboratory test 11/14/2017 Rapid Influenza A B SEE RESULT BELOW 5 finding Antigen Rapid Influenza A 11/14/2017 Influenza A NEGATIVE Negative 6 & B Molecular Molecular Influenza B Molecular NEGATIVE Negative Laboratory test finding 11/14/2017 Blood Culture SEE RESULT BELOW 7 Urinalysis Profile 10/02/2017 Urine Color Yellow 8 Urine Appearance Clear 8 Urine Specific [place] 1.020 1.010-1.030 8 Urine pH 5.0 5-9 8 Urine Urobilinogen Negative Negative 8 Urine Ketones Negative Negative 8 Urine Protein Negative Negative 8 Urine Leukocytes Negative Negative 8 Urine Blood Negative Negative 8 * * Negative 8, 9 Urine Nitrite Negative Negative 8 Urine Bilirubin Negative Negative 8 Urine Glucose Negative Negative 8 CBC Auto Diff 10/02/2017 White Blood Count 11.0 10^3/uL High 3.5-10.8 8 Red Blood Count 4.81 10^6/uL 4.0-5.4 8 Hemoglobin 14.5 g/dL 14.0-18.0 8 Hematocrit 44 % 42-52 8 Mean Corpuscular Volume 91 fL 80-94 8 Mean Corpuscular Hemoglobin 30 pg 27-31 8 Mean Corpuscular HGB Conc 33 g/dL 31-36 8 Red Cell Distribution Width 15 % 10.5-15 8 Platelet Count 305 10^3/uL 150-450 8 Mean Platelet Volume 8 um3 7.4-10.4 8 Abs Neutrophils 5.1 10^3/uL 1.5-7.7 8 Abs Lymphocytes 4.5 10^3/uL 1.0-4.8 8 Abs Monocytes 1.2 10^3/uL High 0-0.8 8 Abs Eosinophils 0.1 10^3/uL 0-0.6 8 Abs Basophils 0.1 10^3/uL 0-0.2 8 Abs Nucleated RBC 0.02 10^3/uL 8 Granulocyte % 46.6 % 38-83 8 Lymphocyte % 41.1 % 25-47 8 Monocyte % 10.5 % High 1-9 8 Eosinophil % 1.1 % 0-6 8 Basophil % 0.7 % 0-2 8 Nucleated Red Blood Cells % 0.2 8 Comp Metabolic Panel 10/02/2017 Sodium 138 mmol/L 133-145 8 Potassium 4.0 mmol/L 3.5-5.0 8 Chloride 103 mmol/L 101-111 8 Co2 Carbon Dioxide 27 mmol/L 22-32 8 Anion Gap 8 mmol/L 2-11 8 Glucose 92 mg/dL 70-100 8 Blood Urea Nitrogen 15 mg/dL 6-24 8 Creatinine 0.98 mg/dL 0.67-1.17 8 BUN/Creatinine Ratio 15.3 8-20 8 Calcium 9.5 mg/dL 8.6-10.3 8 Total Protein 7.3 g/dL 6.4-8.9 8 Albumin 4.2 g/dL 3.2-5.2 8 Globulin 3.1 g/dL 2-4 8 Albumin/Globulin Ratio 1.4 1-3 8 Total Bilirubin 0.30 mg/dL 0.2-1.0 8 Alkaline Phosphatase 68 U/L 34-104 8 Alt 89 U/L High 7-52 8 Ast 37 U/L 13-39 8 Egfr Non- 82.3 >60 8 Egfr 105.9 >60 8, 10 Laboratory test 10/02/2017 Hepatitis C Antibody High Reactive Nonreactive 8, 11 finding GC/Chlamydia 10/02/2017 Chlamydia Negative Negative 8 Amplified Rna trachomatis Rna Neisseria gonorrhoeae (GC) Rna Negative Negative 8 Laboratory test finding 10/02/2017 Hemoglobin A1c (Glyco HGB) 5.4 % 4.0- 5.6 8, 12 Hepatitis C Rna Quant [id number] IU/mL Undetected 8, 13 Quantiferon Gold TB 10/02/2017 M tuberculosis by Negative Negative 8, 14 Quantiferon TB Ag minus Nil Result -0.01 IU/mL 8 TB Mitogen minus Nil Result > 10.00 IU/mL 8 TB Nil Result 0.06 IU/mL 8, 15 Laboratory test finding 06/21/2017 Blood Culture SEE RESULT BELOW 16 Erythrocyte Sed Rate 13 mm/Hr 0-14 C Reactive Protein 30.83 mg/L High < 5.00 17 Comp Metabolic Panel 06/21/2017 Sodium 138 mmol/L 133-145 Chloride 105 mmol/L 101-111 Co2 Carbon Dioxide 25 mmol/L 22-32 Glucose 94 mg/dL 70-100 Blood Urea Nitrogen 13 mg/dL 6-24 Creatinine 0.77 mg/dL 0.67-1.17 BUN/Creatinine Ratio 16.9 8-20 Calcium 9.3 mg/dL 8.6-10.3 Total Protein 7.2 g/dL 6.4-8.9 Albumin 3.9 g/dL 3.2-5.2 Globulin 3.3 g/dL 2-4 Albumin/Globulin Ratio 1.2 1-3 Total Bilirubin 0.30 mg/dL 0.2-1.0 Alkaline Phosphatase 85 U/L 34-104 Alt 54 U/L High 7-52 Egfr Non- 108.8 >60 Egfr 139.9 >60 18 Potassium TNP mmol/L 3.5-5.0 Anion Gap 8 mmol/L 2-11 Ast TNP U/L 13-39 Laboratory test finding 06/21/2017 Ferritin 231.5 ng/mL 24-336 Iron & Iron Binding 06/21/2017 Total Iron Binding 284 g/dL 250-450 Capacity Capacity Iron TNP g/dL 50-212 Unsaturated Iron Binding TNP g/dL % Iron Saturation TNP % 15-55 19 CBC Auto Diff 06/21/2017 White Blood Count 12.4 10^3/uL High 3.5-10.8 Red Blood Count 4.73 10^6/uL 4.0-5.4 Hemoglobin 14.3 g/dL 14.0-18.0 Hematocrit 43 % 42-52 Mean Corpuscular Volume 92 fL 80-94 Mean Corpuscular Hemoglobin 30 pg 27-31 Mean Corpuscular HGB Conc 33 g/dL 31-36 Red Cell Distribution Width 14 % 10.5-15 Platelet Count 326 10^3/uL 150-450 Mean Platelet Volume 8 um3 7.4-10.4 Abs Neutrophils 6.9 10^3/uL 1.5-7.7 Abs Lymphocytes 4.1 10^3/uL 1.0-4.8 Abs Monocytes 1.1 10^3/uL High 0-0.8 Abs Eosinophils 0.2 10^3/uL 0-0.6 Abs Basophils 0.1 10^3/uL 0-0.2 Abs Nucleated RBC 0.03 10^3/uL Granulocyte % 55.9 % 38-83 Lymphocyte % 32.7 % 25-47 Monocyte % 9.1 % High 1-9 Eosinophil % 1.5 % 0-6 Basophil % 0.8 % 0-2 Nucleated Red Blood Cells % 0.2 Laboratory test finding 06/19/2017 Hepatitis C Rna Quant [id number] IU/mL Undetected 20 Comp Metabolic Panel 06/19/2017 Sodium 139 mmol/L 133-145 Potassium 3.3 mmol/L Low 3.5-5.0 Chloride 103 mmol/L 101-111 Co2 Carbon Dioxide 30 mmol/L 22-32 Anion Gap 6 mmol/L 2-11 Glucose 105 mg/dL High 70-100 Blood Urea Nitrogen 12 mg/dL 6-24 Creatinine 0.79 mg/dL 0.67-1.17 BUN/Creatinine Ratio 15.2 8-20 Calcium 9.3 mg/dL 8.6-10.3 Total Protein 6.8 g/dL 6.4-8.9 Albumin 3.7 g/dL 3.2-5.2 Globulin 3.1 g/dL 2-4 Albumin/Globulin Ratio 1.2 1-3 Total Bilirubin 0.40 mg/dL 0.2-1.0 Alkaline Phosphatase 78 U/L 34-104 Alt 66 U/L High 7-52 Ast 41 U/L High 13-39 Egfr Non- 105.6 >60 Egfr 135.8 >60 21 CBC Auto Diff 06/19/2017 White Blood Count 30.8 10^3/uL High 3.5-10.8 Red Blood Count 4.50 10^6/uL 4.0-5.4 Hemoglobin 13.6 g/dL Low 14.0-18.0 Hematocrit 42 % 42-52 Mean Corpuscular Volume 92 fL 80-94 Mean Corpuscular Hemoglobin 30 pg 27-31 Mean Corpuscular HGB Conc 33 g/dL 31-36 Red Cell Distribution Width 14 % 10.5-15 Platelet Count 248 10^3/uL 150-450 Mean Platelet Volume 8 um3 7.4-10.4 Abs Neutrophils 23.0 10^3/uL High 1.5-7.7 Abs Lymphocytes 4.9 10^3/uL High 1.0-4.8 Abs Monocytes 2.8 10^3/uL High 0-0.8 Abs Eosinophils 0.2 10^3/uL 0-0.6 Abs Basophils 0.1 10^3/uL 0-0.2 Abs Nucleated RBC 0 10^3/uL Laboratory test finding 06/19/2017 TSH (Thyroid Stim Horm) 0.50 mcIU/mL 0.34-5.60 Magnesium 2.0 mg/dL 1.9-2.7 Lyme Disease Serology Negative Negative 22 Amylase 19 U/L Low 29-103 Lipase 15 U/L 11.0-82.0 Free T4 (Free Thyroxine) 0.93 ng/dL 0.61-1.12 Manual Differential 06/19/2017 Immature Granulocytes 9 % 0-9 Neutrophil % 65 % 38-83 Band % 6 % 0-8 Lymphocytes % 20 % Low 25-47 Monocytes % 4 % 0-13 Reactive Lymph % 2 % 0-6 Metamyelocytes % 3 % High 0-2 RBC Morphology Normal Normal Laboratory test 06/19/2017 Pathologist Review (SEE NOTE) 23 finding Laboratory test 12/27/2016 TSH (Thyroid Stim 0.19 mcIU/mL Low 0.34-5.60 finding Horm) T3 Free 5.00 pg/mL High 2.5-3.9 Free T4 (Free Thyroxine) 1.12 ng/dL 0.61-1.12 HCV Rna Genotype 1 Ns5a Drug Resist 12/27/2016 HCV NS5a Subtype 1a HCV Daclatasvir Resistance NOT PREDICTED HCV Ledipasvir Resistance NOT PREDICTED Ombitasvir Resistance NOT PREDICTED HCV Elbasvir Resistance NOT PREDICTED HCV Velpatasvir Resistance NOT PREDICTED 24 Laboratory test 11/27/2016 Surgical Interface SEE RESULT BELOW 25, 26 finding Order Laboratory test 10/22/2016 Hepatitis C Rna [id number] IU/mL Undetected 27 finding Quant Drug Abuse 20 Urine 09/26/2016 Urine Amphetamine Negative ng/mL 28 Urine Barbiturates Negative ng/mL 29 Urine Benzodiazepines Negative ng/mL 30 Urine Cocaine Negative ng/mL 31 Urine Phencyclidine Negative ng/mL Cutoff: 25 Urine Tetrahydrocannabinol Negative ng/mL Cutoff: 50 32 Creatinine 35.3 mg/dL Specific [place] 1.005 pH 6.5 Oxidants Negative 33 Adulterants Comment Normal Codeine, Ur Not Detected ng/mL Cutoff: 25 34 Sftnsex-9-zruf-glucuronide, Ur Not Detected ng/mL 35 Morphine, Ur Not Detected ng/mL Cutoff: 25 36 Rtuwlbhd-5-vwbl-glucuronide, U Not Detected ng/mL 37 6-monoacetylmorphine, Ur Not Detected ng/mL Cutoff: 25 38 Hydrocodone, Ur Not Detected ng/mL Cutoff: 25 39 Norhydrocodone, Ur Not Detected ng/mL Cutoff: 25 40 Dihydrocodeine, Ur Not Detected ng/mL Cutoff: 25 41 Hydromorphone, Ur Not Detected ng/mL Cutoff: 25 42 Rwmbdeggtvnxz4naqdgfdlitdwdjy Not Detected ng/mL 43 Oxycodone, Ur Not Detected ng/mL Cutoff: 25 44 Noroxycodone, Ur Not Detected ng/mL Cutoff: 25 45 Oxymorphone, Ur Not Detected ng/mL Cutoff: 25 46 Cqseurmunyc-5-ppaq-glucuronide Not Detected ng/mL 47 Noroxymorphone, Ur Not Detected ng/mL Cutoff: 25 48 Fentanyl, Ur Not Detected ng/mL Cutoff: 2 49 Norfentanyl, Ur Not Detected ng/mL Cutoff: 2 50 Meperidine, Ur Not Detected ng/mL Cutoff: 25 51 Normeperidine, Ur Not Detected ng/mL Cutoff: 25 52 Naloxone, Ur Not Detected ng/mL Cutoff: 25 53 Mafhsnbs-2-jkfx-glucuronide, U Not Detected ng/mL 54 Methadone, Ur Not Detected ng/mL Cutoff: 25 55 Eddp, Ur Not Detected ng/mL Cutoff: 25 56 Propoxyphene, Ur Not Detected ng/mL Cutoff: 25 57 Norpropoxyphene, Ur Not Detected ng/mL Cutoff: 25 58 Tramadol, Ur Not Detected ng/mL Cutoff: 25 59 O-desmethyltramadol, Ur Not Detected ng/mL Cutoff: 25 60 Tapentadol, Ur Not Detected ng/mL Cutoff: 25 61 N-desmethyltapentadol, Ur Not Detected ng/mL Cutoff: 50 62 Zaobdsreiw-hjhb-qtljidedwpq, U Not Detected ng/mL 63 Buprenorphine, Ur Not Detected ng/mL Cutoff: 5 64 Norbuprenorphine, Ur Not Detected ng/mL Cutoff: 5 65 Norbuprenorphine glucuronide Not Detected ng/mL Cutoff: 20 66 Opioid Interpretation See Comment 67 Laboratory test 09/03/2016 Surgical Interface Order SEE RESULT BELOW 68 finding Laboratory test 09/03/2016 Clotest SEE RESULT BELOW 69 finding CMV Igg/Igm 08/27/2016 Cytomegalovirus IgG Positive Negative 70 Antibody Cytomegalovirus IgM Antibody Negative Negative Emmie Sorensen Comprehensive 08/27/2016 Ebv Capsid Ag IgG Ab Positive Negative Ebv Capsid Ag IgM Ab Negative Negative Emmie-Sorensen Nuclear Antigen Positive Negative Emmie-Sorensen Virus Interp See Comment 71 Herpes Simplex Type 08/27/2016 Herpes Simplex Virus I Positive Negative 1&2 Igg IgG AB Herpes Simplex Virus II IgG AB Positive Negative 72 Herpes Simplex Type 08/27/2016 Herpes Simplex Type 1 2 Negative Negative 73 1&2 Igm IgM Laboratory test finding 08/27/2016 Anti Nuclear Antibody 0.2 U 74 Hepatitis C Rna Quant [id number] IU/mL Undetected 75 Hepatitis C Genotype 1a Undetected 76 Smooth Muscle Antibody Negative Negative 77 Liver Fibrosis Panel Fibrosure 08/27/2016 Fibrosis Score 0.09 Fibrosis Stage F0 Fibrosis Interpretation See Comment 78 Necroinflammat Activity Score 0.38 Necroinflammat Activity Grade A1-A2 Necroinflammat Interpretation See Comment 79 Alpha 2 Macroglobulins, Qn 182 mg/dL 106-279 Haptoglobin 200 mg/dL 43-212 Apolipoprotein A-1 172 mg/dL 94-176 Bilirubin, Total 0.3 mg/dL 0.2-1.2 GGT 46 U/L 3-95 Alt (SGPT) 77 U/L 9-46 Reference Id [id number] Footnote See Comment 80 Comp Metabolic Panel 08/24/2016 Sodium 141 mmol/L 133-145 Potassium 3.8 mmol/L 3.5-5.0 Chloride 106 mmol/L 101-111 Co2 Carbon Dioxide 30 mmol/L 22-32 Anion Gap 5 mmol/L 2-11 Glucose 90 mg/dL 70-100 Blood Urea Nitrogen 15 mg/dL 6-24 Creatinine 0.91 mg/dL 0.67-1.17 BUN/Creatinine Ratio 16.5 8-20 Calcium 9.3 mg/dL 8.6-10.3 Total Protein 6.7 g/dL 6.4-8.9 Albumin 3.7 g/dL 3.2-5.2 Globulin 3.0 g/dL 2-4 Albumin/Globulin Ratio 1.2 1-3 Total Bilirubin 0.30 mg/dL 0.2-1.0 Alkaline Phosphatase 65 U/L 34-104 Alt 73 U/L High 7-52 Ast 31 U/L 13-39 Egfr Non- 90.1 >60 Egfr 115.9 >60 81 HIV 1/2 AB Evaluation 08/24/2016 HIV 1 2 Antibody Nonreactive Nonreactive 82 Hepatitis Acute Panel 08/02/2016 Hepatitis B Surface Nonreactive Nonreactive Antigen Hepatitis A AB IgM Nonreactive Nonreactive Hepatitis C Antibody High Reactive Nonreactive 83 Hepatitis B Core IgM Nonreactive Nonreactive Laboratory test finding 08/02/2016 Amylase 34 U/L 29-103 Lipase 39 U/L 11.0-82.0 Erythrocyte Sed Rate 6 mm/Hr 0-14 84 C Reactive Protein 3.38 mg/L < 5.00 85 Monospot Negative Negative 86 Comp Metabolic Panel 08/02/2016 Sodium 136 mmol/L 133-145 Potassium 4.1 mmol/L 3.5-5.0 Chloride 102 mmol/L 101-111 Co2 Carbon Dioxide 28 mmol/L 22-32 Anion Gap 6 mmol/L 2-11 Glucose 109 mg/dL High 70-100 Blood Urea Nitrogen 22 mg/dL 6-24 Creatinine 0.87 mg/dL 0.67-1.17 BUN/Creatinine Ratio 25.3 High 8-20 Calcium 9.4 mg/dL 8.6-10.3 Total Protein 6.5 g/dL 6.4-8.9 Albumin 3.6 g/dL 3.2-5.2 Globulin 2.9 g/dL 2-4 Albumin/Globulin Ratio 1.2 1-3 Total Bilirubin 0.60 mg/dL 0.2-1.0 Alkaline Phosphatase 76 U/L 34-104 Ast 264 U/L High 13-39 Egfr Non- 94.9 >60 Egfr 122.0 >60 87 Alt 742 U/L High 7-52 CBC Auto Diff 08/02/2016 White Blood Count 12.8 10^3/uL High 3.5-10.8 Red Blood Count 4.92 10^6/uL 4.0-5.4 Hemoglobin 15.2 g/dL 14.0-18.0 Hematocrit 45 % 42-52 Mean Corpuscular Volume 91 fL 80-94 Mean Corpuscular Hemoglobin 31 pg 27-31 Mean Corpuscular HGB Conc 34 g/dL 31-36 Red Cell Distribution Width 15 % 10.5-15 Platelet Count 328 10^3/uL 150-450 Mean Platelet Volume 9 um3 7.4-10.4 Abs Neutrophils 8.9 10^3/uL High 1.5-7.7 Abs Lymphocytes 3.1 10^3/uL 1.0-4.8 Abs Monocytes 0.7 10^3/uL 0-0.8 Abs Eosinophils 0.1 10^3/uL 0-0.6 Abs Basophils 0.1 10^3/uL 0-0.2 Abs Nucleated RBC 0.01 10^3/uL Granulocyte % 69.4 % 38-83 Lymphocyte % 23.9 % Low 25-47 Monocyte % 5.6 % 1-9 Eosinophil % 0.5 % 0-6 Basophil % 0.6 % 0-2 Nucleated Red Blood Cells % 0.1 Drug Abuse 20 Urine 01/11/2012 Urine Ampetamines SEE BELOW ng/mL () 88 Urine Opiates Screen SEE BELOW () 89 Urine Opiates Interpretation SEE BELOW () 90 Urine Alcohol Negative mg/dL Cutoff: 30 Urine Barbiturates Negative ng/mL () 91 Urine Opiates Presumptive Posi <SEE NOTE> ng/mL () 92 Urine Phencyclidine Negative ng/mL Cutoff: 25 93 Drug Abuse 20 Urine 12/14/2011 Urine Ampetamines Negative ng/mL () 94 Urine Barbiturates Negative ng/mL () 95 Urine Benzodiazepines Negative ng/mL () 96 Urine Cocaine Negative ng/mL () 97 Urine Methadone Negative ng/mL () 98 Urine Opiates Negative ng/mL () 99 Urine Phencyclidine Negative ng/mL Cutoff: 25 Urine Propoxyphene Negative ng/mL () 100 Urine Tetrahydrocannabinol Negative ng/mL Cutoff: 20 101 1 SEE RESULT BELOW Name: ALTAGRACIA RODRIGUEZ : [address]: Jovanny Sellers MD Acct: [id number] Unit: [id number] AGE: 47 Location: ED Re11/14/17 SEX: M Status: DEP ER SPEC: [id number] JINA: 11/14/[address]: Carina DE PAZ REQ: [id number] RECD: 11/14/17 STATUS: RES OTHR DR: Jovanny Villa MD _ SOURCE: BLOOD,VENO SPDESC: ORDERED: Blood Cult Procedure Result Reported Site Aerobic Culture Bottle Preliminary 11/15/17- 1820 ML No Growth Day 1 Anaerobic Culture Bottle Preliminary 11/15/171820 ML No Growth Day 1 * ML - MAIN LAB ([facility]) . END OF REPORT * ML=Testing performed at Main Lab DEPARTMENT OF PATHOLOGY, [address] [place] [address] Mo Mann M.D. Director [facility] # [id number] 2 Acute inflammation: >10.00 3 [facility] Severe Sepsis and Septic Shock Management Bundle Measure requires all lactic acids initially measuring >2.0 mmol/L be repeated. 4 Because ethnic data is not always readily available, this report includes an eGFR for both -Americans and non- Americans. The National Kidney Disease Education Program (NKDEP) does not endorse the use of the MDRD equation for patients that are not between the ages of 18 and 70, are , have extremes of body size, muscle mass, or nutritional status, or are non- or non-. According to the National Kidney Foundation, irrespective of diagnosis, the stage of the disease is based on the level of kidney function: Stage Description GFR(mL/min/1.73 m(2)) 1 Kidney damage with normal or decreased GFR 90 2 Kidney damage with mild decrease in GFR 60-89 3 Moderate decrease in GFR 30-59 4 Severe decrease in GFR 15-29 5 Kidney failure <15 (or dialysis) 5 SEE RESULT BELOW Name: ALTAGRACIA RODRIGUEZ : [address]: Jovanny Sellers MD Acct: [id number] Unit: [id number] AGE: 47 Location: ED Re11/14/17 SEX: M Status: REG ER SPEC: [id number] JINA: 11/14/[address]: Carina DE PAZ REQ: [id number] RECD: 11/14/17 STATUS: RICHARD INFANTE DR: Jovanny Villa MD _ SOURCE: [facility]: ORDERED: Maxim A B Request Procedure Result Reported Site Rapid Influenza A B Request Final 11/14/17- 1825 ML Specimen received for Influenza A/B Molecular testing * ML - MAIN LAB ([facility]) . END OF REPORT * ML=Testing performed at Main Lab DEPARTMENT OF PATHOLOGY, [address] [place] [address] Mo Mann M.D. Director [facility] # [id number] 6 Rehabilitator: [id number] SEE RESULT BELOW Name: ALTAGRACIA RODRIGUEZ : [address]: Jovanny Sellers MD Acct: [id number] Unit: [id number] AGE: 47 Location: ED Re11/14/17 SEX: M Status: DEP ER SPEC: [id number] JINA: 11/14/[address]: Carina DE PAZ REQ: [id number] RECD: 11/14/17 STATUS: RES OTHR DR: Jovanny Villa MD _ SOURCE: BLOOD,VENO SPDES: ORDERED: Blood Cult Procedure Result Reported Site Aerobic Culture Bottle Preliminary 11/18/172002 ML No Growth Day 4 Anaerobic Culture Bottle Final 11/19/172000 ML No Growth Day 5 * ML - MAIN LAB ([facility]) . END OF REPORT * ML=Testing performed at Main Lab DEPARTMENT OF PATHOLOGY, [address] [place] [address] Mo Mann M.D. Director [facility] # [id number] 8 RNA HEP C VIRAL LOAD IF HCV POSITIVE 9 *Ascorbic acid is present which may interfere with detection of blood. 10 Because ethnic data is not always readily available, this report includes an eGFR for both -Americans and non- Americans. The National Kidney Disease Education Program (NKDEP) does not endorse the use of the MDRD equation for patients that are not between the ages of 18 and 70, are , have extremes of body size, muscle mass, or nutritional status, or are non- or non-. According to the National Kidney Foundation, irrespective of diagnosis, the stage of the disease is based on the level of kidney function: Stage Description GFR(mL/min/1.73 m(2)) 1 Kidney damage with normal or decreased GFR 90 2 Kidney damage with mild decrease in GFR 60-89 3 Moderate decrease in GFR 30-59 4 Severe decrease in GFR 15-29 5 Kidney failure <15 (or dialysis) 11 High reactive sample are considered positive for Hepatitis C 12 Therapeutic target for the treatment of diabetes mellitus patients is <7% HBA1C, and in selective patients <6.0%. Please refer to [place] Diabetes Association diabetic care guidelines for further information. 13 Result in log IU/mL is 7.03. ADDITIONAL INFORMATION The quantification range of this assay is 15 to 100,000,000 IU/mL (1.18 log to 8.00 log IU/mL). Testing was performed using the radames HCV test ([employer] with the radames DataKraft0 System. Test Performed by: [facility] - [address] [address] 14 No interferon-gamma response to M. tuberculosis antigens was detected. Infection with M. tuberculosis is unlikely. A negative result alone does not exclude infection with M. tuberculosis. For detailed information regarding test interpretation see: www.wise [email or web address]/test-catalog/ Clinical+and+Interpretive/36788 15 Test Performed by: [facility] [address] [place] [address] 16 SEE RESULT BELOW Name: ALTAGRACIA RODRIGUEZ : [address]: Brad Yuan NP Acct: [id number] Unit: [id number] AGE: 47 [facility]21[facility]17 SEX: M Status: REG REF SPEC: [id number] JINA: 06/21/[address]: Brad Yuan NP REQ: [id number] RECD: 06/21/17 STATUS: COMP _ SOURCE: BLOOD,VENO SPDESC: ORDERED: Blood Cult Procedure Result Reported Site Aerobic Culture Bottle Final 06/26/17- 1606 ML No Growth Day 5 Anaerobic Culture Bottle Final 06/26/17- 1606 ML No Growth Day 5 * ML - [facility] ([facility]) . END OF REPORT * ML=Testing performed at Main Lab DEPARTMENT OF PATHOLOGY, [address] [place] [address] Mo Mann M.D. Director [facility] # [id number] 17 Acute inflammation: >10.00 18 Because ethnic data is not always readily available, this report includes an eGFR for both -Americans and non- Americans. The National Kidney Disease Education Program (NKDEP) does not endorse the use of the MDRD equation for patients that are not between the ages of 18 and 70, are , have extremes of body size, muscle mass, or nutritional status, or are non- or non-. According to the National Kidney Foundation, irrespective of diagnosis, the stage of the disease is based on the level of kidney function: Stage Description GFR(mL/min/1.73 m(2)) 1 Kidney damage with normal or decreased GFR 90 2 Kidney damage with mild decrease in GFR 60-89 3 Moderate decrease in GFR 30-59 4 Severe decrease in GFR 15-29 5 Kidney failure <15 (or dialysis) 19 Unable to calculate due to hemolysis. 20 Result in log IU/mL is 6.62. ADDITIONAL INFORMATION The quantification range of this assay is 15 to 100,000,000 IU/mL (1.18 log to 8.00 log IU/mL). Testing was performed by the RADAMES AmpliPrep/RADAMES TaqMan HCV Test, version 2.0 ([employer] Test Performed by: [address] [address] 21 Because ethnic data is not always readily available, this report includes an eGFR for both -Americans and non- Americans. The National Kidney Disease Education Program (NKDEP) does not endorse the use of the MDRD equation for patients that are not between the ages of 18 and 70, are , have extremes of body size, muscle mass, or nutritional status, or are non- or non-. According to the National Kidney Foundation, irrespective of diagnosis, the stage of the disease is based on the level of kidney function: Stage Description GFR(mL/min/1.73 m(2)) 1 Kidney damage with normal or decreased GFR 90 2 Kidney damage with mild decrease in GFR 60-89 3 Moderate decrease in GFR 30-59 4 Severe decrease in GFR 15-29 5 Kidney failure <15 (or dialysis) 22 Serologic response to B. burgdorferi infection is not detected, but cannot rule out early infection during which low or undetectable antibody levels to B. burgdorferi may be present. If clinically indicated, a new serum specimen should be submitted in 7-14 days. Test Performed by: [address] [address] 23 Leukocytosis with absolute neutrophilia and absolute monocytosis, favor reactive. Reviewed by Latesha Multani MD 24 Mutations Detected: NONE This assay is designed to amplify HCV genotypes 1a and 1b and may not successfully amplify other HCV genotypes. This test utilizes RT-PCR and DNA sequencing to detect the presence of treatment-emergent HCV NS5a variants associated with Ns5a inhibitor antiviral therapy. The clinical significance of NS5a resistance associated variants for antiviral therapy may vary according to the clinical status and antiviral treatment experience of the HCV-infected patient. Testing for NS5a resistance-associated variants prior to initiation of treatment with elbasvir plus grazoprevir in HCV genotype 1a infected patients is recommended. For further guidance consult with the package inserts of the applicable direct acting agents and guideline documents such as the AASLD and IDSA guidelines available at http://hcvguidelines.org. For additional information, please refer to http://education.ShopEat.[employer]/faq/UMH295 This test was developed and its analytical Performance characteristics have been determined by [employer]. It has not been cleared or approved by the FDA. This assay has been validated pursuant to the CLIA regulations and is used for clinical purposes. Test Performed by: [employer] [employer] [address] [place] [address] 25 [id number] 26 SEE RESULT BELOW Name: ALTAGRACIA RODRIGUEZ : [address]: Raulito Tompkins MD Acct: [id number] Unit: [id number] AGE: 46 Location: ENDOCEC Re11/27/16 SEX: M Status: DEP REF SPEC: [id number] JINA: 11/27/16-1304 [facility] DR: Raulito Tompkins MD REQ: [id number] RECD: 11/27/16-7310 STATUS: BECKA INFANTE DR: Rober Yuan SAND MILLER _ ORDERED: LEVEL IV/2 COMMENTS: [id number] FINAL DIAGNOSIS 1. Colon, hepatic flexure, biopsy: -- Tubular adenoma. -- No high grade dysplasia or malignancy. 2. Colon, random, biopsy: -- Benign colonic mucosa with no significant pathologic abnormalities. -- No evidence of microscopic colitis. CLINICAL HISTORY No history given POST-OPERATIVE DIAGNOSIS Colonoscopy - polyp at hepatic flexure, random biopsy. 5 years, likely irritable bowel syndrome GROSS DESCRIPTION 1. The specimen is received in formalin labeled, Biopsy Hepatic Flexure Polyp, and consists of a 0.8 x 0.6 x 0.2 cm aggregate of quesada-pink irregular soft tissue fragments, which is submitted entirely in one cassette. 2. The specimen is received in formalin labeled, Random Colon Biopsies, and consists of two quesada-pink irregular soft tissue fragments averaging 0.3 x 0.2 x 0.2 cm, which are submitted entirely in one cassette. Signed (signature on file) Latesha Multani MD 1429 END OF REPORT * ML=Testing performed at Main Lab DEPARTMENT OF PATHOLOGY, [address] [place] [address] Mo Mann M.D. Director [facility] # [id number] 27 Result in log IU/mL is 7.57. ADDITIONAL INFORMATION The quantification range of this assay is 15 to 100,000,000 IU/mL (1.18 log to 8.00 log IU/mL). Testing was performed by the [employer]AMES AmpliPrep/RADAMES TaqMan HCV Test, version 2.0 ([employer] Test Performed by: [address] [address] Director Personal: Ludwin Willard II, M.D., Ph.D. 28 REFERENCE VALUE Cutoff: 500 29 REFERENCE VALUE Cutoff: 200 30 REFERENCE VALUE Cutoff: 100 31 REFERENCE VALUE Cutoff: 150 32 ADDITIONAL INFORMATION This report is intended for use in clinical monitoring or management of patients. It is not intended for use in employment-related testing. 33 REFERENCE VALUE Cutoff: 200 mg/L 34 Tylenol 3 35 Metabolite of codeine REFERENCE VALUE Cutoff: 100 36 Aide Sevilla, MS Contin; Also a minor metabolite (10%) of codeine and can be seen in low concentrations (<2,000 ng/mL) with poppy seed ingestion. 37 Metabolite of morphine REFERENCE VALUE Cutoff: 100 38 Metabolite of heroin 39 Lortab, [place], Vicodin; Also a very minor metabolite of codeine and impurity (<1%) of oxycodone. 40 Metabolite of hydrocodone 41 Metabolite of hydrocodone 42 Dilaudid, Exalgo; Also a metabolite of hydrocodone and a minor (<5%) metabolite of morphine. 43 Metabolite of hydromorphone REFERENCE VALUE Cutoff: 100 44 Endocet, Percocet, Oxycontin 45 Metabolite of oxycodone 46 Numorphan, Opana; Also a metabolite of oxycodone. 47 Metabolite of oxymorphone REFERENCE VALUE Cutoff: 100 48 Metabolite of oxymorphone 49 Actiq, Duragesic, Fentora 50 Metabolite of fentanyl 51 Demerol 52 Metabolite of meperidine 53 Narcan 54 Metabolite of naloxone REFERENCE VALUE Cutoff: 100 55 Dolophine 56 Metabolite of methadone 57 Darvon, Darvocet 58 Metabolite of propoxyphene 59 Tradol, Ultram, Ultracet 60 Metabolite of tramadol 61 Nucynta 62 Metabolite of tapentadol 63 Metabolite of tapentadol REFERENCE VALUE Cutoff: 100 64 Buprenex, Suboxone 65 Metabolite of buprenorphine 66 Metabolite of buprenorphine 67 No opioids were detected. The absence of expected drug(s) and/or drug metabolite(s) may indicate non-compliance, altered pharmacokinetics, inappropriate timing of specimen collection relative to drug administration, diluted/adulterated urine, or limitations of testing. ADDITIONAL INFORMATION This test was developed and its performance characteristics determined by [facility] in a manner consistent with CLIA requirements. This test has not been cleared or approved by the U.S. Food and Drug Administration. Test Performed by: [facility] - [address] [address] Director Personal: Ludwin Willard II, M.D., Ph.D. 68 SEE RESULT BELOW Name: ALTAGRACIA RODRIGUEZ : [address]: Raulito Tompkins MD Acct: [id number] Unit: [id number] AGE: 46 Location: ENDO Re09/03/16 SEX: M Status: DEP REF SPEC: [id number] JINA: 09/03/1655 [facility] DR: Scooter Waite MD REQ: [id number] RECD: 09/03/16-3222 STATUS: BECKA INFANTE DR: Brad Yuan SAND MILLER _ ORDERED: LEVEL IV FINAL DIAGNOSIS Duodenum, biopsy: -- Benign duodenal mucosa with no significant pathologic abnormalities. -- No evidence of villous blunting or increased intraepithelial lymphocytes. CLINICAL HISTORY Abdominal pain POST-OPERATIVE DIAGNOSIS Esophagus - Grade B erosive esophagitis, ulcer; stomach - erosions biopsied; duodenum - normal, biopsied GROSS DESCRIPTION The specimen is received in formalin labeled, Duodenum Biopsy, and consists of a 0.4 x 0.2 x 0.2 cm speckled quesada-brown irregular to polypoid soft tissue fragment, which is entirely submitted in one cassette. Signed (signature on file) Latesha Multani MD 11/19 1340 END OF REPORT * ML=Testing performed at Main Lab DEPARTMENT OF PATHOLOGY, [address] [place] [address] Mo Mann M.D. Director [facility] # [id number] 69 SEE RESULT BELOW Name: ARMAND RODRIGUEZKACI Monsalve : [address]: Raulito Tompkins MD Acct: [id number] Unit: [id number] AGE: 46 Location: ENDO Re09/03/16 SEX: M Status: REG REF SPEC: [id number] JINA: 09/03/[address]: Raulito Tompkins MD REQ: [id number] RECD: 09/03/16 STATUS: COMP OTHR DR: Brad Yuan SAND MILLER _ SOURCE: PERLITA [facility]: ORDERED: Clotest Procedure Result Reported Site Clotest Final 09/04/16806 ML Clotest Negative * ML - MAIN LAB ([facility]) . END OF REPORT * ML=Testing performed at Main Lab DEPARTMENT OF PATHOLOGY, [address] [place] [address] Mo Mann M.D. Director [facility] # [id number] 70 Test Performed by: [address] [address] Director Personal: Ludwin Willard II, M.D., Ph.D. 71 RESULT: Results suggest past infection. ADDITIONAL INFORMATION In most populations, at least 90% of the adult population will have been infected with EBV sometime in the past and therefore, will be positive for anti-VCA/IgG and anti- EBNA. Antibodies to EBNA develop 6-8 weeks after primary infection and remain present for life. Presence of VCA/ IgM antibodies indicates recent primary infection with EBV. Test Performed by: [place] [address] Director Personal: Ludwin Willard II, M.D., Ph.D. 72 Test Performed by: [place] [address] Director Personal: Ludwin Willard II, M.D., Ph.D. 73 ADDITIONAL INFORMATION This test has been modified from the leather tacker's instructions. Its performance characteristics were determined by [facility] in a manner consistent with CLIA requirements. This test has not been cleared or approved by the U.S. Food and Drug Administration. Test Performed by: [place] [address] Director Personal: Ludwin Willard II, M.D., Ph.D. 74 REFERENCE VALUE <=1.0 (Negative) Test Performed by: [place] [address] Director Personal: Ludwin Willard II, M.D., Ph.D. 75 Result in log IU/mL is 7.94. ADDITIONAL INFORMATION The quantification range of this assay is 15 to 100,000,000 IU/mL (1.18 log to 8.00 log IU/mL). Testing was performed by the [employer]AMES AmpliPrep/RADAMES TaqMan HCV Test, version 2.0 ([employer] Test Performed by: [facility] [place] [address] Director Personal: Ludwin Willard II, M.D., Ph.D. 76 ADDITIONAL INFORMATION This test was performed using the Galvan RealTime HCV Genotype II assay ([employer] [place], [place]). Test Performed by: [place] [address] Director Personal: Ludwin Willard II, M.D., Ph.D. 77 ADDITIONAL INFORMATION This test was developed and its performance characteristics determined by [facility] in a manner consistent with CLIA requirements. This test has not been cleared or approved by the U.S. Food and Drug Administration. Test Performed by: [place] [address] Director Personal: Ludwin Willard II, M.D., Ph.D. 78 no fibrosis Fibro Test Score Metavir Score 0.00-0.21 F0 no fibrosis 0.22-0.27 F0-F1 0.28-0.31 F1 minimal fibrosis 0.32-0.48 F1-F2 0.49-0.58 F2 moderate fibrosis 0.59-0.72 F3 advanced fibrosis 0.73-0.74 F3-F4 0.75-1.00 F4 severe fibrosis 79 minimal activity ActiTest Score Metavir Score 0.00-0.17 A0 no activity 0.18-0.29 A0-A1 0.30-0.36 A1 minimal activity 0.37-0.52 A1-A2 0.53-0.60 A2 significant activity 0.61-0.62 A2-A3 0.63-1.00 A3 severe activity 80 The reliability of results is dependent on compliance with the preanalytical and analytical conditions recommended by [employer]. The tests have to be deferred for: acute hemolysis, acute hepatitis, acute inflammation, extra hepatic cholestasis. The advice of a specialist should be sought for interpretation in chronic hemolysis and Gilbert's syndrome. The test interpretation is not validated in liver transplant patients. Isolated extreme values of one of the components should lead to caution in interpreting the results. In case of discordance between a biopsy result and a test, it is recommended to seek the advice of a specialist. The causes of these discordances could be due to a flaw of the test or to a flaw in the biopsy: i.e. a liver biopsy has a 33% variability rate for one fibrosis stage. FibroTest is interpretable for chronic hepatitis B and C, alcoholic and non alcoholic steatosis. ActiTest is interpretable for chronic hepatitis B and C. The performance characteristics have been determined by [facility]. It has not been cleared or approved by the U.S. Food and Drug Administration. Performance characteristics refer to the analytical performance of the test. All Web Leads, the associated logo, [employer] and all associated [employer]ma he are the registered trademarks of [employer]. All third alliance party he - (R) and (TM) - are the property of their respective owners. (C) [phone] Mom-stop.com. All rights reserved. Test Performed by: [employer] [address] [place] [address] 81 Because ethnic data is not always readily available, this report includes an eGFR for both -Americans and non- Americans. The National Kidney Disease Education Program (NKDEP) does not endorse the use of the MDRD equation for patients that are not between the ages of 18 and 70, are , have extremes of body size, muscle mass, or nutritional status, or are non- or non-. According to the National Kidney Foundation, irrespective of diagnosis, the stage of the disease is based on the level of kidney function: Stage Description GFR(mL/min/1.73 m(2)) 1 Kidney damage with normal or decreased GFR 90 2 Kidney damage with mild decrease in GFR 60-89 3 Moderate decrease in GFR 30-59 4 Severe decrease in GFR 15-29 5 Kidney failure <15 (or dialysis) 82 It is recognized that currently available assays for the detection of antibodies to HIV-1 and/or HIV-2 may not detect all infected individuals. HIV antibodies may be undetectable in some stages of the infection and in some clinical conditions. The performance of this assay has not been established for populations of infants or children. Assayed by Chemiluminescence Microparticle Immunoassay on the Siemens Advia Centaur CP. Values obtained with different methods or kits cannot be used interchangeably.The diagnostic specificity of the ADVIA Centaur 1/O/2 Enhanced assay in the low risk population was 99.90% (6052/6058) with a 95% confidence interval of 99.78 to 99.96%. 83 High reactive sample are considered positive for Hepatitis C 84 Would you like an EBV if Monospot is Negative?: N 85 Acute inflammation: >10.00 86 Would you like an EBV if Monospot is Negative?: N 87 Because ethnic data is not always readily available, this report includes an eGFR for both -Americans and non- Americans. The National Kidney Disease Education Program (NKDEP) does not endorse the use of the MDRD equation for patients that are not between the ages of 18 and 70, are , have extremes of body size, muscle mass, or nutritional status, or are non- or non-. According to the National Kidney Foundation, irrespective of diagnosis, the stage of the disease is based on the level of kidney function: Stage Description GFR(mL/min/1.73 m(2)) 1 Kidney damage with normal or decreased GFR 90 2 Kidney damage with mild decrease in GFR 60-89 3 Moderate decrease in GFR 30-59 4 Severe decrease in GFR 15-29 5 Kidney failure <15 (or dialysis) 88 [facility] Clinic Survey 10, U was cancelled on 01/15/2012 at 14:17; Quantity not sufficient. -- REFERENCE VALUE -- Cutoff: 500 This report is intended for use in clinical monitoring or management of patients. It is not intended for use in employment-related testing. 89 Pain Clinic Survey 10, U was cancelled on 01/15/2012 at 14:17; Quantity not sufficient. -- REFERENCE VALUE -- Cutoff: 300 -- REFERENCE VALUE -- Cutoff: 100 -- REFERENCE VALUE -- Cutoff: 100 -- REFERENCE VALUE -- Cutoff: 100 -- REFERENCE VALUE -- Cutoff: 100 -- REFERENCE VALUE -- Cutoff: 100 90 Pain Clinic Survey 10, U was cancelled on 01/15/2012 at 14:17; Quantity not sufficient. This report is intended for use in clinical monitoring and management of patients. It is not intended for use in employment-related testing. Test Performed by: [facility] Dpt of Lab Med and Pathology [address] [place] [id number] Director Personal: Matteo Man III, M.D. 91 -- REFERENCE VALUE -- Cutoff: 200 -- REFERENCE VALUE -- Cutoff: 200 -- REFERENCE VALUE -- Cutoff: 300 -- REFERENCE VALUE -- Cutoff: 300 92 Presumptive Positive -- REFERENCE VALUE -- Cutoff: 300 93 -- REFERENCE VALUE -- Cutoff: 300 94 -- REFERENCE VALUE -- Cutoff: 500 95 -- REFERENCE VALUE -- Cutoff: 200 96 -- REFERENCE VALUE -- Cutoff: 200 97 -- REFERENCE VALUE -- Cutoff: 300 98 -- REFERENCE VALUE -- Cutoff: 300 99 -- REFERENCE VALUE -- Cutoff: 300 10 -- REFERENCE VALUE -- 0 Cutoff: 300 10 This report is intended for use in clinical monitoring or 1 management of patients. It is not intended for use in employment-related testing. Test Performed by: [facility] Dpt of Lab Med and Pathology [address] [place], [place] [id number] Director Personal: Matteo Man III, M.D. Procedures Date CPT Code Description Status 11/27/2016 Colonoscopy Completed Encounters Type Date Location Provider CPT E/M Dx Office Visit 07/29/2017 11:00a [facility] [place] [address] Z00.01 Joseph B35.3 E05.80 R79.82 D72.829 R94.5 B18.2 G47.00 Z23 Office Visit 07/15/2017 9:40a [facility] Micah Bal, 41191 G25.81 Beny Badillo M.D. Office Visit 06/19/2017 10:40a [facility] [place] [address] R21 - Joseph R11.10 R25.2 E05.80 G47.00 F41.9 B18.2 Office Visit 05/27/2017 9:30a [facility] [address] G47.00 [facility] Office Visit 04/16/2017 9:30a [facility] [place] [address] B18.2 Infectious Diseases Lester Messina E05.80 R63.4 Office Visit 12/03/2016 4:00p [facility] Rober Messina, [address]52 B18.2 Infectious Diseases M.D. R19.7 Office Visit 11/26/2016 10:45a [facility] [place] [address] G47.00 [facility] Office Visit 11/20/2016 9:40a [facility] [place] [address] M54.5 [place] F32.89 G47.00 Office Visit 11/01/2016 10:00a [facility] [place] [address] R10.9 [place] J01.90 Office Visit 10/12/2016 4:20p [facility] [place] [address] M54.5 [place] Office Visit 09/26/2016 8:40a [facility] [place] [address] G47.00 [place] R10.9 Office Visit 09/18/2016 11:30a [facility] Rober Messina, [address]17 B18.2 Infectious Diseases M.D. R74.0 Office Visit 08/30/2016 7:45a [facility] [place] [address] G47.00 [facility] F41.9 G89.4 F95.2 F17.210 Office Visit 08/27/2016 9:00a [facility] [place] [address] R10.9 [place] G47.00 R51 Office Visit 08/24/2016 11:10a [facility] Iman Messina, [address] B18.2 Infectious Diseases M.D. R74.0 Z23 Office Visit 07/30/2016 2:00p [facility] [place] [address] R10.9 [place] R21 G47.00 Office Visit 04/04/2016 2:00p [facility] [place] [address] K62.5 [place] K21.9 G47.00 Office Visit 02/05/2012 4:00p [facility] Temi Israel M.D. 63631 338.4 - [place] Office Visit 12/14/2011 11:00a [facility] Temi Israel M.D. 04061 338.4 - [place] Plan of Care Future Appointment(s):12/30/2017 2:00 pm - Rober Messina M.D. at [facility] Csgrrjas48/22/2018 - Rober Messina M.D.B18.2 Chronic viral hepatitis CFollow up:1 month
[2017-11-28 13:00] VITALS: BP 119/87
--- NOTE | 2017-11-28 13:52 | UC ---
Dental HPI - HPI Summary HPI Summary: Pt presents with pain in lower mouth and red irritated spots. He tells me that he was seen for this about 3 weeks ago and given magic mouthwash - which he used for 5 days and his symptoms were almost gone, but he ran out of medication. He does use dentures and does clean them often. He has no teeth. Denies fever, chills, sore throat, recent illness, SOB, chest pain, or bleeding from gums. - History of Current Complaint Chief Complaint: UCGeneralIllness Stated Complaint: MOUTH SORE Time Seen by Provider: 11/28/17 13:31 Hx Obtained From: Patient Onset/Duration: Gradual Onset Severity: Severe Pain Intensity: 8 Pain Scale Used: 0-10 Numeric - Allergies/Home Medications Allergies/Adverse Reactions: Allergies Allergy/AdvReac Type Severity Reaction Status Date / Time Sulfamethoxazole Allergy Severe Anaphylatic Verified 11/28/17 12:53 w/Trimethoprim Shock [From Bactrim] Quinolones Allergy Unknown Unknown Verified 11/28/17 12:53 Reaction Details Tramadol Allergy Unknown Unknown Verified 11/28/17 12:53 Reaction Details Carbamazepine [From Tegretol] Allergy throat Verified 11/28/17 12:53 swelling Ciprofloxacin Allergy Anaphylatic Verified 11/28/17 12:53 Shock Erythromycin Allergy Hives Verified 11/28/17 12:53 Gabapentin [From Neurontin] Allergy sedation Verified 11/28/17 12:53 Iodinated Diagnostic Agents Allergy Anaphylatic Verified 11/28/17 12:53 Shock Ketorolac Tromethamine Allergy Vomiting Verified 11/28/17 12:53 [From Toradol] Moxifloxacin [From Avelox] Allergy Anaphylatic Verified 11/28/17 12:53 Shock Quetiapine [From Seroquel] Allergy See Comment Verified 11/28/17 12:53 Trazodone Allergy throat Verified 11/28/17 12:53 swells Valproic Acid [From Depakote] Allergy sedation Verified 11/28/17 12:53 Ziprasidone [From Geodon] Allergy See Comment Verified 11/28/17 12:53 PT HAS 39 MED ALLERGIES - Allergy See Comment Uncoded 11/28/17 12:53 ?NAMES PMH/Surg Hx/FS Hx/Imm Hx Respiratory History: Asthma Psychological History: Anxiety, Depression Other History Of: Hepatitis C - Surgical History Surgical History: Yes Surgery Procedure, Year, and Place: Rt knee surgery- 1985 -. APPENDECTOMY. 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, LOWER BRAIN TISSUE REMOVED - DUE TO INFECTION, PLATE IN FOREHEAD - Family History Known Family History: Positive: Cardiac Disease, Hypertension, Diabetes, Other - lung cancer - Social History Lives: Snf Alcohol Use: None Substance Use Type: None Substance Use Comment - Amount & Last Used: crack once in a while Smoking Status (MU): Former Smoker Type: Cigarettes Amount Used/How Often: 1/2 PPD When Did the Patient Quit Smoking/Using Tobacco: 3 months Household Exposure Type: Cigarettes - Immunization History Most Recent Influenza Vaccination: 2017 Review of Systems Constitutional: Negative Skin: Negative ENT: Dental Pain Cardiovascular: Negative Neurovascular: Negative Neurological: Negative Psychological: Negative All Other Systems Reviewed And Are Negative: Yes Physical Exam Triage Information Reviewed: Yes Appearance: Well-Appearing, No Pain Distress, Well-Nourished Vital Signs: Initial Vital Signs Temp 96.9 F 11/28/17 12:55 Pulse 62 11/28/17 12:55 Resp 18 11/28/17 12:55 BP 119/87 11/28/17 12:55 Pulse Ox 100 11/28/17 12:55 Vital Signs Reviewed: Yes Eyes: Positive: Conjunctiva Clear. Negative: Conjunctiva Inflamed, Discharge ENT: Positive: Hearing grossly normal, Pharynx normal, TMs normal, Uvula midline. Negative: Pharyngeal erythema, Nasal congestion, Nasal drainage, TM bulging, TM dull, TM red, Tonsillar swelling, Tonsillar exudate, Sinus tenderness Dental: Positive: Cellulitis @ - Lower gums, Other: - Tongue has a brown hairy- like coating that is NTTP. No lesions appreciated in oral cavity.. Negative: Abscess @, Cervical Lymphadenopathy, Bleeding Neck: Positive: Supple, Nontender, No Lymphadenopathy Respiratory: Positive: Lungs clear, Normal breath sounds, No respiratory distress Cardiovascular: Positive: RRR, No Murmur, Pulses Normal Neurological: Positive: Alert Psychological: Positive: Age Appropriate Behavior Skin: Negative: rashes, significant lesion(s) Dental Complaint Course/Dx - Course Course Of Treatment: He had good relief with magic mouthwash recently and felt his condition was nearly gone before he ran out of medication, will rx for a longer supply and allow him to continue using as needed for gum cellulitis. - Differential Dx/Diagnosis Provider Diagnoses: Lower gums cellulitis Discharge - Discharge Plan Condition: Stable Disposition: HOME Prescriptions: Chlorhexidine MOUTHWASH 0.12%* [Peridex Mouth Wash 0.12%*] 15 ml MT BID #1 btl Magic M W2 Brandan/Maal/Nyst/Lido* 5 ml SWISH SPIT QID PRN #280 ml PRN Reason: Pain (Dental) Patient Education Materials: Gingivostomatitis (ED) Referrals: Ryan Villa MD [Primary Care Provider] - Additional Instructions: If you develop a fever, shortness of breath, chest pain, new or worsening symptoms - please call your PCP or go to the ED.
== END 2017-11-28 14:00 | disposition home or self-care (01) ==
LOC: UCEAST 11:58
DX: K12.2 Cellulitis and abscess of mouth (principal); F41.9 Anxiety disorder, unspecified; F32.9 Major depressive disorder, single episode, unspecified; B19.20 Unspecified viral hepatitis C without hepatic coma; Z87.891 Personal history of nicotine dependence
CPT/HCPCS: 99212; G0463

== ENCOUNTER 2017-12-28 12:16 | Emergency (ER) | payer MEDICARE, MEDICAID ==
--- OUTSIDE RECORDS SUMMARY | 2017-12-28 12:24 | XMS REPORT ---
:1970 External Reference #:[id number] Author Organization [facility] [employer] Address [address] [place] [address] Phone [phone] Care Team Providers Name Role Phone Aly Carroll M.D. 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 Primary Care Physician Unavailable Payers Type Date Identification Numbers Payment Provider Subscriber Medicare Primary Policy Number: [id number] Medicare Myron George PayID: [id number] [address] [place] [address] Medicaid Policy Number: [id number] Medicaid Myron George PayID: [id number] [address] [place] [address] Problems Date Description Provider Status Onset: 05/28/2011 Chronic sinusitis Emerita Ham PA Active Onset: 05/28/2011 Acute frontal sinusitis Emerita Ham PA Active Onset: 07/29/2015 Insomnia Chris Camejo M.D. Active Onset: 07/29/2015 Chronic rhinitis Chris Camejo M.D. Active Family History Date Family Member(s) Problem(s) Comments Father Hearing Loss Father Diabetes Father Cancer, Head And Neck Mother Asthma And Allergies Social History Type Date Description Comments Marital Status Occupation Unemployed Cigarette Use currently smokes 1/2 Pack Daily ETOH Use Never used alcohol Recreational Drug Use Has Used In Past Smoked marijuana when he was 11yrs. old Allergies, Adverse Reactions, Alerts Date Description Reaction Status Severity Comments 01/31/2010 Cipro paralysis waist down, hives active 01/31/2010 Levaquin paralysis-waist down, hives active 01/31/2010 Avelox paralysis- waist down,hives active 01/31/2010 Trazodone throat swelling,diff.breathing active 01/31/2010 Erythromycin hives,nausea active 01/31/2010 Neurontin vomiting,headache,drooling,diff. active speaking 01/31/2010 Depakote nausea, vomiting,headache,drooling, active diff. speaking 05/28/2011 Toradol NAUSEA,VOMITING active 01/12/2013 Tegretol active 11/16/2014 Cephalexin active 03/21/2016 Bactrim difficulty breathing active Medications Medication Date Status Form Strength Qnty SIG Indications Ordering Provider Magic Mouth Wash 12/04 Active Liquid 1:1:1 30ml 2.5 cubic , centimeters Chris, swish and M.D. spit 2-3 times a day. do not swallow. mylanta:saida adryl:lidoc jim Azithromycin 12/28 Active Tablets 250mg 11tab 2 by mouth , s every day Chris, 1, 1 by M.D. mouth every day 2-10 Xyzal 09/03 Active Tablets 5mg 30tab 1 by mouth , s every day Chris, M.D. Singulair 03/09 Active Tablets 10mg 90tab 1 by mouth , s every day Chris, M.D. Prednisone 10/19 Active Tablets 10mg 5tabs 1 by mouth , every Chris, morning M.D. Nasal [place] 10/19 Active Solution 0.05% 30ml 2 spray each side Chris, daily M.D. Dermotic 07/18 Active Oil 0.01% 3unit apply 5 s drops twice Chris, a day to M.D. affected ear canal(s)for 7-14 days Fluticasone 07/04 Active Suspension 50mcg/Act 1unit 2 sprays , s both Chris, nostrils M.D. every day Naproxen 05/02 Active Tablets 250mg 60tab one tab s twice daily Chris, M.D. Propranolol HCL Active Tablets 60mg 1 po bid / Celecoxib 08/15 Hx Capsules 100mg 10cap 1 by mouth , s twice a day Chris, - M.D. 08/16 Diflucan 08/06 Hx Tablets 100mg 5tabs take 2 pills the Chris, - first day M.D. 08/14 then 1 pill daily until gone. Azithromycin 06/15 Hx Tablets 250mg 11tab 2 by mouth , s every day Chris, - 1, 1 by M.D. 08/14 mouth every day 2-10 Bactroban 03/21 Hx Cream 2% 1unit apply , s soaringly Chris, - twice a day M.D. 08/14 to twice daily Clindamycin HCL 03/21 Hx Capsules 300mg 10cap 1 by mouth , s twice a day Chris, - x 5 days M.D. 08/07 Bactrim DS 02/26 Hx Tablets 800-160mg 28tab 1 by mouth , s twice a day Chris, - x 14 days M.D. 03/21 Fexofenadine HCL 02/26 Hx Tablets 180mg 30tab 1 by mouth , s every day Chris, - M.D. 08/30 Dexamethasone 02/21 Hx Tablets 4mg 5tabs one tab , daily for 5 Chris, - days M.D. 08/30 Azithromycin 11/09 Hx Tablets 250mg 11tab 2 by mouth , s every day Chris, - 1, 1 by M.D. 03/09 mouth every day 2-10 Alprazolam 06/29 Hx Tablets 2mg 14tab one at [facility], /2014 s bedtime Pending Sale To [facility], - M.D. 10/18 Azithromycin 06/29 Hx Tablets 250mg 6tabs 2 by mouth Camejo, every day Chris, - 1, 1 by M.D. 07/18 mouth every day 2-5 Diflucan 02/07 Hx Tablets 150mg 2tabs 1 by mouth Bashir, x 2 1 Chris, - before and M.D. 06/28 1 after antibiotic treatment Dexamethasone 01/24 Hx Tablets 4mg 5tabs one tab Camejo, daily for 5 Chris, - days M.D. 06/28 Lunesta 01/11 Hx Tablets 2mg 5tabs 1 tab.qhs Camejo, Chris, - M.D. 07/05 Cephalexin 01/07 Hx Tablets 500mg 63tab 500 mg Camejo, s three times Chris, - a day 21 M.D. Zolpidem 11/16 Hx Tablets 10mg 15tab 1 at [facility], Tar s bedtime for Chris, - 30 days M.D. 06/28 Penicillin V 11/16 Hx Tablets 250mg 21tab 1 by mouth Camejo, Potassium s three times Chris, - a day M.D. 01/06 Amoxicillin 08/24 Hx Tablets 875mg 14tab twice a day Camejo, s 1 week Chris, - M.D. 08/23 Xanax 08/24 Hx Tablets 1mg 5tabs 1 tab every night at [facility], - bedtime M.D. 11/15 Cephalexin 08/24 Hx Tablets 500mg 21tab 500 mg Camejo, s three times Chris, - a day 7 M.D. Omeprazole 07/[address] 40mg 60cap 1 by mouth Camejo, s every day Chris, - M.D. 11/15 Oxycodone-Acetam 07/13 Hx Tablets 5-325mg 20tab 1-2 by mendy Camejo s mouth every Chris, - 6 as needed M.D. 11/15 Cephalexin 06/25 Hx Tablets 500mg 30tab 500 mg tid Camejo, s 10 days Chris, - M.D. 07/12 Hydrocodone 04/27 Hx Tablets 5-300mg Bashir Bitartrate/Aceta Chris, minophen - M.D. 04/27 Percocet 04/27 Hx Tablets 5-325mg 20tab 2 by mouth Bashir, s four times Chris, - a day as M.D. 07/12 needed for pain Jennifer Allergy 04/27 Hx Tablets 180mg 90tab one daily Camejo, s for 90 days Chris, - M.D. 07/12 Cephalexin 04/27 Hx Tablets 500mg 21tab 500 mg Bashir, s three times Chris, - a day 7 M.D. Augmentin 04/21 Hx Tablets 875-125mg 14tab twice a day s 1 week Chris, - M.D. 04/26 Cephalexin 10/23 Hx Tablets 500mg 30tab 500 mg tid s 10 days Chris, - M.D. 04/26 Prednisone 10/23 Hx Tablets 20mg 5tabs 1 po qd Chris, - M.D. 04/26 Cephalexin 01/12 Hx Tablets 500mg 21tab 500 mg tid s 7 days Chris, - M.D. 10/23 Prednisone 01/12 Hx Tablets 20mg 4tabs 1 po qd Camejo, Chris, - M.D. 10/23 Jennifer Allergy 09/29 Hx Tablets 180mg 60tab one tab a Bashir, s day Chris, - M.D. 01/12 Doxycycline 09/29 Hx Tablets 100mg 60tab 1 tab twice Camejo, cl s daily for Chris, - 30 days M.D. 01/12 Prednisone 09/08 Hx Tablets 10mg 5tabs 1 po qam Chris, - M.D. 01/12 Oxycodone HCL 08/13 Hx Tablets 10mg 40tab one tab q4h s prn for Chris, - pain. M.D. 01/12 Cephalexin 08/04 Hx Tablets 500mg 15tab 1 po bid x Camejo, s 5 days Chris, - M.D. 01/12 Percocet 02/12 Hx Tablets 5-325mg 15tab 2 po qid Camejo s prn for Chris, - pain M.D. 01/12 Prednisone 01/24 Hx Tablets 20mg 6tabs 2 po qd x 3 , /2011 days Chris, - M.D. 02/12 Fluticasone 01/24 Hx Suspension 50mcg/Act 1unit 1 spray Bashir, Propionate s each Chris, - nostril qd M.D. 01/24 Nasonex 01/24 Hx Suspension 50mcg/Act 1unit 2 sprays s each Chris, - nostril qd M.D. 01/24 Nasacort Aq 01/24 Hx Aerosol 55mcg/Act 1unit 2 sprays s both Chris, - nostrils qd M.D. 01/24 Flunisolide 01/24 Hx Solution 0.025% 1unit 2 sprays s each Chris, - nostril qd M.D. 01/12 Fluticasone 10/15 Hx Suspension 50mcg/Act 3unit 2 sprays Camejo, s both Chris, - nostrils qd M.D. 01/24 Prednisone 10/15 Hx Tablets 20mg 7tabs 1 po qd Chris, - M.D. 01/24 Percocet 05/28 Hx Tablets 5-325mg 20tab 1-2 po q 4 s hours prn Chris, - for pain M.D. 01/24 Prednisone 05/02 Hx Tablets 10mg 10tab 1 po qam s Chris - M.D. 05/28 Fexofenadine HCL 02/05 Hx Tablets 180mg 30tab 1 tablet qd s for allergy Chris, - M.D. 05/28 Fexofenadine HCL 01/31 Hx Tablets 180mg 30tab 1 tablet qd s for allergy Chris, - M.D. 01/31 Flonase 01/31 Hx Suspension 50mcg/Act 1unit 2 sprays s both Chris, - nostrils qd M.D. 05/28 Pseudoephedrine 01/31 Hx Tablets 30mg 60tab 1 tab q 4 s hours as Chris, - needed M.D. 04/26 /2013 congestion Loratadine 01/31 Hx Tablets 10mg 30tab 1 po qd s Chris - M.D. 02/05 Cephalexin 01/24 Hx Camejo Beny Perez M.DSiomara 05/28 Flonase 01/24 Hx Suspension 50mcg/Act 1unit 2 sprays Bashir, s both Chris - nostrils qd M.D. 01/24 Hydrocodone-Acet 00 Hx Tablets 10-325mg 40tab 1 tab q4-6h Unknown aminophen /0000 s prn - 10/23 Methadone HCL Hx Tablets 10mg 60six 3 tablets 6 Unknown / ty hourly - 11/15 Ambien 00/ Hx Tablets 10mg 30tab 1 po qhs Unknown /0000 s - 01/24 Xanax Hx Tablets 1mg 1 x day Unknown / - 01/12 Rolaids Hx Chewtabs 550-110mg 3-4 tabs qh Unknown /0000 - 01/24 Prednisone 00/ Hx Tablets 20mg 6tabs Unknown / - 01/24 Tums Hx Chewtabs 500mg prn Unknown / - 04/26 Lunesta 00/ Hx Tablets 3mg 60tab alt. with Unknown /0000 s ambien - 05/28 Bactrim DS 00/ Hx Unknown / - 01/[address] 20mg 1 po qd Unknown / - 01/24 Clonazepam 00/ Hx Tablets 2mg 2 po hs Unknown /0000 - 07/12 Ambien 00/00 Hx Tablets 10mg 30tab 1 po qhs Unknown /0000 s - 04/26 Hydrocodone 00/00 Hx Tablets 10-325mg Unknown / - 04/27 Hydrocodone 00/00 Hx Unknown /0000 - 11/15 Xanax 00/00 Hx Tablets Unknown /0000 - 08/24 Ambien 00/00 Hx 10mg 15uni one tab Unknown /0000 ts daily - 11/15 Medications Administered in Office Medication Date Status Form Strength Qnty SIG Indications Ordering Provider Dexamethasone Administered Injection Daniella Oconnor NP Vital Signs Date Vital Result Comment 12/17/2017 Weight 187.00 lb Height 63 inches 5'3" BMI (Body Mass Index) 33.1 kg/m2 BP Systolic 108 mmHg BP Diastolic 77 mmHg Heart Rate 69 /min O2 % BldC Oximetry 98 % Body Temperature 97.9 F Pain Level 0 12/12/2017 Weight 187.00 lb Height 63 inches 5'3" BMI (Body Mass Index) 33.1 kg/m2 BP Systolic 133 mmHg BP Diastolic 89 mmHg Heart Rate 85 /min O2 % BldC Oximetry 95 % Body Temperature 96.4 F Pain Level 0 12/04/2017 Weight 163.00 lb Height 63 inches 5'3" BMI (Body Mass Index) 28.9 kg/m2 BP Systolic 148 mmHg pt states he just started medication for his bp BP Diastolic 98 mmHg pt states he just started medication for his bp Heart Rate 70 /min O2 % BldC Oximetry 95 % Body Temperature 97.0 F Pain Level 8 08/15/2016 Weight 151.00 lb Height 63 inches 5'3" BMI (Body Mass Index) 26.7 kg/m2 BP Systolic 134 mmHg BP Diastolic 82 mmHg Heart Rate 99 /min O2 % BldC Oximetry 99 % Body Temperature 97.6 F 03/21/2016 Weight 152.00 lb Height 64.5 inches 5'4.50" BMI (Body Mass Index) 25.7 kg/m2 02/22/2016 Weight 152.00 lb Height 64.5 inches 5'4.50" BMI (Body Mass Index) 25.7 kg/m2 Body Temperature 99.0 F 10/19/2015 Height 64.5 inches 5'4.50" BP Systolic 128 mmHg BP Diastolic 80 mmHg Body Temperature 98.3 F 09/15/2015 Weight 152.00 lb Height 64.5 inches 5'4.50" BMI (Body Mass Index) 25.7 kg/m2 BP Systolic 122 mmHg BP Diastolic 86 mmHg Heart Rate 11 /min O2 % BldC Oximetry 97 % Body Temperature 97.7 F 08/03/2015 Weight 149.00 lb Height 64.5 inches 5'4.50" BMI (Body Mass Index) 25.2 kg/m2 Heart Rate 98 /min O2 % BldC Oximetry 100 % 08/01/2015 Weight 149.00 lb Height 64.5 inches 5'4.50" BMI (Body Mass Index) 25.2 kg/m2 BP Systolic 118 mmHg BP Diastolic 64 mmHg Heart Rate 98 /min O2 % BldC Oximetry 98 % [place] Score 1 Neck Circumference in inches 15.5 07/29/2015 Weight 148.00 lb Height 64.5 inches 5'4.50" BMI (Body Mass Index) 25.0 kg/m2 BP Systolic 134 mmHg BP Diastolic 82 mmHg Heart Rate 97 /min O2 % BldC Oximetry 98 % Body Temperature 98.7 F 06/29/2015 Weight 145.00 lb Height 64.5 inches 5'4.50" BMI (Body Mass Index) 24.5 kg/m2 BP Systolic 132 mmHg BP Diastolic 84 mmHg Heart Rate 75 /min O2 % BldC Oximetry 96 % Body Temperature 98.1 F Pain Level 4 01/11/2015 Weight 145.00 lb Height 64.5 inches 5'4.50" BMI (Body Mass Index) 24.5 kg/m2 BP Systolic 124 mmHg BP Diastolic 76 mmHg Heart Rate 81 /min O2 % BldC Oximetry 97 % Body Temperature 98.2 F 11/16/2014 Weight 145.56 lb Height 64.5 inches 5'4.50" BMI (Body Mass Index) 24.6 kg/m2 BP Systolic 122 mmHg BP Diastolic 82 mmHg Body Temperature 97.9 F 08/24/2014 Weight 142.00 lb Height 64.5 inches 5'4.50" BMI (Body Mass Index) 24.0 kg/m2 BP Systolic 122 mmHg BP Diastolic 80 mmHg Heart Rate 68 /min O2 % BldC Oximetry 97 % Body Temperature 98.7 F Pain Level 3 follow up prn 07/13/2014 Weight 142.00 lb Height 64.5 inches 5'4.50" BMI (Body Mass Index) 24.0 kg/m2 BP Systolic 118 mmHg BP Diastolic 78 mmHg Heart Rate 96 /min O2 % BldC Oximetry 98 % Body Temperature 97.7 F 04/27/2014 Weight 148.00 lb Height 64.5 inches 5'4.50" BMI (Body Mass Index) 25.0 kg/m2 BP Systolic 92 mmHg BP Diastolic 58 mmHg Heart Rate 84 /min O2 % BldC Oximetry 96 % Body Temperature 97.3 F Pain Level 5 10/23/2013 Weight 148.50 lb Height 64.5 inches 5'4.50" BMI (Body Mass Index) 25.1 kg/m2 BP Systolic 118 mmHg BP Diastolic 88 mmHg Heart Rate 85 /min O2 % BldC Oximetry 97 % Body Temperature 97.3 F 01/12/2013 Weight 143.00 lb Height 64.5 inches 5'4.50" BMI (Body Mass Index) 24.2 kg/m2 BP Systolic 120 mmHg BP Diastolic 80 mmHg Heart Rate 94 /min O2 % BldC Oximetry 96 % Body Temperature 98.4 F 09/29/2012 Weight 138.00 lb BP Systolic 112 mmHg BP Diastolic 80 mmHg Heart Rate 80 /min O2 % BldC Oximetry 97 % Body Temperature 97.4 F 02/13/2012 Weight 144.00 lb Height 64.5 inches 5'4.50" BMI (Body Mass Index) 24.3 kg/m2 BP Systolic 138 mmHg BP Diastolic 100 mmHg Heart Rate 106 /min O2 % BldC Oximetry 98 % Body Temperature 98.5 F 01/25/2012 Weight 145.00 lb Height 64.5 inches 5'4.50" BMI (Body Mass Index) 24.5 kg/m2 BP Systolic 120 mmHg BP Diastolic 70 mmHg Body Temperature 97.0 F 10/15/2011 Weight 149.00 lb Height 64.5 inches 5'4.50" BMI (Body Mass Index) 25.2 kg/m2 BP Systolic 126 mmHg BP Diastolic 74 mmHg Heart Rate 91 /min O2 % BldC Oximetry 98 % Body Temperature 97.0 F 06/08/2011 Body Temperature 97.0 F 05/28/2011 Weight 152.00 lb Height 64.5 inches 5'4.50" BMI (Body Mass Index) 25.7 kg/m2 BP Systolic 124 mmHg BP Diastolic 70 mmHg Heart Rate 84 /min Body Temperature 97.4 F 04/23/2011 Weight 149.00 lb Height 64.5 inches 5'4.50" BMI (Body Mass Index) 25.2 kg/m2 BP Systolic 116 mmHg BP Diastolic 82 mmHg Heart Rate 88 /min O2 % BldC Oximetry 96 % Body Temperature 97.8 F 01/24/2011 Weight 148.50 lb Height 64.5 inches 5'4.50" BMI (Body Mass Index) 25.1 kg/m2 BP Systolic 116 mmHg BP Diastolic 70 mmHg Heart Rate 76 /min Body Temperature 96.8 F 01/31/2010 Weight 161.00 lb Height 65.5 inches 5'5.50" BMI (Body Mass Index) 26.4 kg/m2 BP Systolic 124 mmHg BP Diastolic 72 mmHg Heart Rate 91 /min Body Temperature 98.8 F Results Test Date Test Result H/L Range Note Laboratory test finding 03/23/2016 MRSA Screen See Note 1 Laboratory test finding 02/23/2016 MRSA Screen See Note 2 Basic Metabolic Panel 05/28/2011 Glucose 79 mg/dL 76-115 BUN 9 mg/dL 5-23 Creatinine 0.9 mg/dL 0.5-1.4 Glom Filtration Rate, Estimate >60 mL/min >60 If >60 mL/min >60 3 BUN/Creat 10.0 Sodium 140 mEq/L 136-145 Potassium 4.1 mEq/L 3.5-5.1 Chloride 102 mEq/L 98-107 Carbon Dioxide 32 mEq/L 21-32 Anion Gap 10 mEq/L 8-16 Calcium 8.5 mg/dL 8.5-10.1 CBC 05/28/2011 White Blood Count 8.9 K/uL 3.4-10.5 Red Blood Count 4.75 M/uL 4.20-5.80 Hemoglobin 14.9 gm/dL 12.8-17.0 Hematocrit 43.5 % 38.0-48.0 Mean Cell Volume 91.6 fl 80.0-96.0 Mean Corpuscular HGB 31.4 pg 27.0-33.0 Mean Corpuscular HGB Conc 34.3 g/dL 31.7-36.0 Platelet Count 330 K/uL 150-400 Red Cell Distri Width %CV 13.0 % 11.6-15.8 Mean Platelet Volume 9.7 fL 6.6-10.6 Laboratory test finding 05/28/2011 Urine Screen See Note 4 1 NO METHICILLIN RESISTANT STAPHYLOCOCCUS AUREUS ISOLATED. 2 Organism 1 ! METHICILLIN RESISTANT S.AUREUS Quantity ! FROM BROTH METHICILLIN RESISTANT S.AUREUS Target Route Dose M.I.C. RX AB COST ------ ----- -------- ------ -- ------ OXACILLIN >=4 R * TETRACYCLINE <=1 S TRIMETHOPRIM/SULFAMETHOXAZOLE BLOOD PO DS <=10 S 0.39 AMOXICILLIN R AMOXICILLIN/CLAVULANATE R AMPICILLIN/SULBACTAM R ERYTHROMYCIN >=8 R CLINDAMYCIN BLOOD <=0.25 S This Staphylococcal species does not demonstrate inducible clindamycin resistance in vitro. MOXIFLOXACIN 1 S CEFACLOR R AZITHROMYCIN R PIPERACILLIN R VANCOMYCIN <=0.5 S 3 Note: Persistent reduction for 3 months or more in an eGFR <60 mL/min/1.73 m2 defines CKD. Patients with eGFR values >/=60 mL/min/1.73 m2 may also have CKD if evidence of persistent proteinuria is present. The original MDRD equation for estimated GFR is not valid for patients less than 18 years of age. Additional information may be found at www.kdoqi.org. 4 NO SPECIMEN RECIEVED Procedures Date CPT Code Description Status 12/12/2017 15923 Ultrasound Head/Neck Completed 12/12/2017 85582 Dilation Salivary Duct Completed 08/15/2016 28509 Nasal Endoscopy, Diag. Completed 02/22/2016 61328 Nasal Endoscopy, Diag. Completed 09/15/2015 65924 Therapeutic, Prophylactic Or Diagnostic Injection Completed Subq/Im 07/29/2015 24366 Nasal Endoscopy, Diag. Completed 06/29/2015 19497 Nasal Endoscopy, Diag. Completed 11/16/2014 36894 Nasal Endoscopy, Diag. Completed 07/13/2014 92957 Fiberoptic Laryngoscopy,Diag. Completed 04/27/2014 66080 Nasal Endoscopy, Diag. Completed 09/07/2012 75797 Sleep Staging 4Or More Para Completed 10/15/2011 22064 Nasal Endoscopy, Diag. Completed 05/31/2011 56967 Balloon Sinuplasty Maxillary Completed 05/31/2011 40769 Balloon Sinuplasty Maxillary Completed 05/31/2011 83462 Balloon Sinuplasty Frontal Sin Completed 05/31/2011 33241 Balloon Sinuplasty Frontal Sin Completed 04/23/2011 62243 Nasal Endoscopy, Diag. Completed 12/20/2006 24953 Nasal Endoscopy, Diag. Completed 12/11/2006 02804 Stereotactic Computer Assisted Volumetric Procedure Completed (Xomed) 12/11/2006 40628 Nasal/Sinus Endosc.W.Explor. Completed 12/11/2006 91348 Nasal/Sinus Endosc.W.Explor. Completed 12/11/2006 12602 Sinusotomy,3 Or More Paranasal S Completed 12/11/2006 98716 Nonobl,W/Osteoplastic Flap Completed 12/11/2006 08870 Septoplasty Completed 10/04/2006 02132 Nasal Endoscopy, Diag. Completed Encounters Type Date Location Provider CPT E/M Dx Office Visit 12/12/2017 3:15p Main [facility] Chris Camejo M.D. 87255 K11.20 K11.5 R51 Office Visit 12/04/2017 1:45p [place] [address] K11.1 K11.20 Office Visit 08/15/2016 1:30p [facility] Chris Camejo M.D. 83551 R51 J31.0 Office Visit 03/21/2016 12:45p [facility] Chris Camejo M.D. 56085 J32.9 R51 G47.9 G47.00 A49.02 Office Visit 02/22/2016 3:15p [facility] Chris Camejo M.D. 19848 J32.9 Z72.0 R51 Office Visit 11/09/2015 12:30p [facility] Chris Camejo M.D. 32402 J31.0 Z72.0 G47.00 R51 Office Visit 10/19/2015 1:15p [facility] Chris Camejo M.D. 14117 J31.0 Z72.0 R51 J32.9 Office Visit 09/15/2015 4:15p [place] [address] R51 J31.0 Office Visit 08/03/2015 2:30p [facility] Chris Camejo M.D. 01531 R51 J32.9 Office Visit 08/01/2015 10:45a [facility] Renetta Fong M.D. 18506 G47.00 Z72.0 Office Visit 07/29/2015 1:30p [facility] Office Chris Camejo M.D. 09226 R51 J32.9 J31.0 G47.00 Office Visit 07/06/2015 10:45a [facility] Chris Camejo M.D. 22935 784.0 780.52 473.9 Office Visit 06/29/2015 11:00a [facility] Chris Camejo M.D. 24568 473.9 461.8 780.52 Office Visit 01/11/2015 10:00a [facility] Chris Camejo M.D. 88016 473.9 461.8 472.0 Office Visit 11/16/2014 11:30a [facility] Chris Camejo M.D. 32456 473.9 461.8 780.52 530.81 Office Visit 08/24/2014 10:45a [facility] Chris Camejo M.D. 00722 473.9 461.8 780.52 Office Visit 07/13/2014 9:30a [facility] Chris Camejo M.D. 57399 472.0 530.81 784.1 787.20 Office Visit 04/27/2014 9:00a [facility] Chris Camejo M.D. 93417 473.9 784.0 472.0 995.3 Office Visit 10/23/2013 3:15p [place] [address] 784.0 461.8 Office Visit 01/12/2013 10:30a Main Office Chris Camejo M.D. 08933 473.9 461.8 784.0 Office Visit 09/29/2012 11:30a [facility] Office Chris Camejo M.D. 12101 473.9 461.8 784.0 780.50 Office Visit 09/08/2012 8:30a [facility] Office Chris Camejo M.D. 80243 784.0 780.50 461.8 Office Visit 08/13/2012 3:00p [facility] Office Chris Camejo M.D. 45617 784.0 780.50 473.1 Office Visit 02/13/2012 2:00p [facility] Office Chris Camejo M.D. 81193 388.70 784.0 Office Visit 01/25/2012 10:30[place] [address] 388.70 Office Visit 10/15/2011 9:45a [facility] Office Chris Camejo M.D. 59196 473.9 784.0 472.0 Office Visit 04/23/2011 8:15a [facility] Office Chris Camejo M.D. 79473 473.9 461.1 784.0 Office Visit 01/31/2011 10:45a [place] [address] 784.0 Office Visit 01/24/2011 11:15a [place] [address] 471.0 473.9 470 Office Visit 03/18/2007 1:00p [facility] Office Chris Camejo M.D. 99518 473.1 Office Visit 12/06/2006 9:15a [facility] Office Chris Camejo M.D. 26586 473.1 Office Visit 11/06/2006 3:00p Main Office Chris Camejo M.D. 19790 473.1 Office Visit 10/04/2006 11:00a Main Office Chris Camejo M.D. 81732 473.1 470 Plan of Care No Information Available
--- OUTSIDE RECORDS SUMMARY | 2017-12-28 12:24 | XMS REPORT ---
:1970 External Reference #:[id number] Author Organization [facility] [employer] Address [address] [place] [address] Phone [phone] Care Team Providers Name Role Phone Aly Carroll M.D. Care Team Information Community Pharmacist Unavailable Aly Carroll M.D. Primary Care Physician Unavailable Payers Type Date Identification Numbers Payment Provider Subscriber Medicare Primary Policy Number: [id number] Medicare Myron George PayID: [id number] [address] [place] [address] Medicaid Policy Number: [id number] Medicaid Myron George PayID: [id number] [address] [place] [address] Problems Date Description Provider Status Onset: 05/28/2011 [...] mouth , every Chris, morning M.D. Nasal [place] 10/19 Active Solution 0.05% 30ml 2 spray [...] 06/29 Hx Tablets 2mg 14tab one at [facility], /2014 [facility], - M.D. 10/18 Azithromycin 06/29 Hx Tablets [...] 11/16 Hx Tablets 10mg 15tab 1 at [facility], Tar s bedtime for Chris, - 30 days M.D. 06/28 Penicillin V 11/16 Hx Tablets 250mg 21tab 1 by mouth Camejo, Potassium s three times Chris, - a day M.D. 01/06 Amoxicillin 08/24 Hx Tablets 875mg 14tab twice a day Camejo, s 1 week Chris, - M.D. 08/23 Xanax 08/24 Hx Tablets 1mg 5tabs 1 tab every night at [facility], - bedtime M.D. 11/15 Cephalexin 08/24 Hx [...] Unknown / ty hourly - 11/15 Ambien 00 Hx Tablets 10mg 30tab 1 po qhs Unknown /0000 s - 01/24 Xanax Hx Tablets 1mg 1 x day Unknown / - 01/12 Rolaids Hx Chewtabs 550-110mg 3-4 tabs qh Unknown /0000 - 01/24 Prednisone 00 Hx Tablets 20mg 6tabs Unknown / - [...] - 11/15 Xanax 00/00 Hx Tablets Unknown / - 08/24 Ambien 00/00 Hx 10mg 15uni one tab Unknown /0000 ts daily - 11/15 Medications Administered in Office Medication Date Status Form Strength Qnty SIG Indications Ordering Provider Dexamethasone Administered Injection Daniella Oconnor NP Vital Signs Date Vital Result Comment 12/24/2017 Weight 187.00 lb Height 63 inches 5'3" BMI (Body Mass Index) 33.1 kg/m2 BP Systolic 126 mmHg BP Diastolic 67 mmHg Heart Rate 65 /min O2 % BldC Oximetry 95 % Body Temperature 96.7 F Pain Level 3 mouth 12/17/2017 Weight 187.00 lb Height 63 inches [...] /min O2 % BldC Oximetry 98 % [place] Score 1 Neck Circumference in inches 15.5 [...] Procedures Date CPT Code Description Status 12/12/2017 48027 Ultrasound Head/Neck Completed 12/12/2017 01813 Dilation Salivary Duct Completed 08/15/2016 93772 Nasal Endoscopy, Diag. Completed 02/22/2016 60632 Nasal Endoscopy, Diag. Completed 09/15/2015 83025 Therapeutic, Prophylactic Or Diagnostic Injection Completed Subq/Im 07/29/2015 12795 Nasal Endoscopy, Diag. Completed 06/29/2015 93323 Nasal Endoscopy, Diag. Completed 11/16/2014 12105 Nasal Endoscopy, Diag. Completed 07/13/2014 34102 Fiberoptic Laryngoscopy,Diag. Completed 04/27/2014 24291 Nasal Endoscopy, Diag. Completed 09/07/2012 95440 Sleep Staging 4Or More Para Completed 10/15/2011 31862 Nasal Endoscopy, Diag. Completed 05/31/2011 83218 Balloon Sinuplasty Maxillary Completed 05/31/2011 85485 Balloon Sinuplasty Maxillary Completed 05/31/2011 97991 Balloon Sinuplasty Frontal Sin Completed 05/31/2011 86049 Balloon Sinuplasty Frontal Sin Completed 04/23/2011 40262 Nasal Endoscopy, Diag. Completed 12/20/2006 50684 Nasal Endoscopy, Diag. Completed 12/11/2006 78735 Stereotactic Computer Assisted Volumetric Procedure Completed (Xomed) 12/11/2006 26783 Nasal/Sinus Endosc.W.Explor. Completed 12/11/2006 24169 Nasal/Sinus Endosc.W.Explor. Completed 12/11/2006 80445 Sinusotomy,3 Or More Paranasal S Completed 12/11/2006 65508 Nonobl,W/Osteoplastic Flap Completed 12/11/2006 38310 Septoplasty Completed 10/04/2006 85008 Nasal Endoscopy, Diag. Completed Encounters Type Date Location Provider [facility] E/M Dx Office Visit 12/17/2017 10:15a Main Office Chris Camejo M.D. 96527 K11.20 Office Visit 12/12/2017 3:15p Main Office Chris Camejo M.D. 98834 K11.20 K11.5 R51 Office Visit 12/04/2017 1:45p [place] [address] K11.1 K11.20 Office Visit 08/15/2016 1:30p [place] [facility] Chris Camejo M.D. 12455 R51 J31.0 Office Visit 03/21/2016 12:45p [place] Chris Camejo M.D. 49823 J32.9 R51 G47.9 G47.00 A49.02 Office Visit 02/22/2016 3:15p [place] Chris Camejo M.D. 75406 J32.9 Z72.0 R51 Office Visit 11/09/2015 12:30p [place] Chris Camejo M.D. 72993 J31.0 Z72.0 G47.00 R51 Office Visit 10/19/2015 1:15p [place] Chris Camejo M.D. 97737 J31.0 Z72.0 R51 J32.9 Office Visit 09/15/2015 4:15p [place] [address] R51 J31.0 Office Visit 08/03/2015 2:30p [facility] Chris Camejo M.D. 02139 R51 J32.9 Office Visit 08/01/2015 10:45a [place] [facility] Renetta Fong M.D. 04635 G47.00 Z72.0 Office Visit 07/29/2015 1:30p Main Office Chris Camejo M.D. 26571 R51 J32.9 J31.0 G47.00 Office Visit 07/06/2015 10:45a [place] Chris Camejo M.D. 54891 784.0 780.52 473.9 Office Visit 06/29/2015 11:00a [place] Chris Camejo M.D. 81835 473.9 461.8 780.52 Office Visit 01/11/2015 10:00a [facility] Chris Camejo M.D. 60377 473.9 461.8 472.0 Office Visit 11/16/2014 11:30a [place] Chris Camejo M.D. 74842 473.9 461.8 780.52 530.81 Office Visit 08/24/2014 10:45a [facility] Chris Camejo M.D. 98248 473.9 461.8 780.52 Office Visit 07/13/2014 9:30a [facility] Chris Camejo M.D. 55308 472.0 530.81 784.1 787.20 Office Visit 04/27/2014 9:00a [place] Chris Camejo M.D. 36124 473.9 784.0 472.0 995.3 Office Visit 10/23/2013 3:15p [place] [address] 784.0 461.8 Office Visit 01/12/2013 10:30a Main Office Chris Camejo M.D. 11509 473.9 461.8 784.0 Office Visit 09/29/2012 11:30a Main Office Chris Camejo M.D. 32382 473.9 461.8 784.0 780.50 Office Visit 09/08/2012 8:30a Main Office Chris Camejo M.D. 78490 784.0 780.50 461.8 Office Visit 08/13/2012 3:00p Main Office Chris Camejo M.D. 01136 784.0 780.50 473.1 Office Visit 02/13/2012 2:00p Main Office Chris Camejo M.D. 69011 388.70 784.0 Office Visit 01/25/2012 10:30[place] [address] 388.70 Office Visit 10/15/2011 9:45a Main Office Chris Camejo M.D. 62712 473.9 784.0 472.0 Office Visit 04/23/2011 8:15a Main Office Chris Camejo M.D. 45130 473.9 461.1 784.0 Office Visit 01/31/2011 10:45[place] [address] 784.0 Office Visit 01/24/2011 11:15a [place] [address] 471.0 473.9 470 Office Visit 03/18/2007 1:00p Main Office Chris Camejo M.D. 87957 473.1 Office Visit 12/06/2006 9:15a Main Office Chris Camejo M.D. 05217 473.1 Office Visit 11/06/2006 3:00p Main Office Chris Camejo M.D. 83623 473.1 Office Visit 10/04/2006 11:00a Main Office Chris Camejo M.D. 10324 473.1 470 Plan of Care No Information Available
--- OUTSIDE RECORDS SUMMARY | 2017-12-28 12:25 | XMS REPORT ---
:1970 External Reference #:[id number] Author Organization [facility] [employer] Address [address] [place] [address] Phone [phone] Care Team Providers Name Role Phone Aly Carroll M.D. Care Team Information Light Fixture Servicer Unavailable Aly Carroll M.D. Primary Care Physician Unavailable Payers Type Date Identification Numbers Payment Provider Subscriber Medicare Primary Policy Number: [id number] Medicare Myron George PayID: [id number] [address] [place] [address] Medicaid Policy Number: [id number] Medicaid Myron George PayID: [id number] [address] [place] [address] Problems Date Description Provider Status Onset: 05/28/2011 [...] mouth , every Chris, morning M.D. Nasal [place] 10/19 Active Solution 0.05% 30ml 2 spray [...] Cream 2% 1unit apply , s soaringly Chrsi, - twice a day M.D. 08/14 to [...] 06/29 Hx Tablets 2mg 14tab one at [facility], /2014 s bedtime [facility], - M.D. 10/18 Azithromycin 06/29 Hx [...] 11/16 Hx Tablets 10mg 15tab 1 at [facility], Tar s bedtime for Chris, - 30 days M.D. 06/28 Penicillin V 11/16 Hx Tablets 250mg 21tab 1 by mouth Camejo, Potassium s three times Chris, - a day M.D. 01/06 Amoxicillin 08/24 Hx Tablets 875mg 14tab twice a day Camejo, s 1 week Chris, - M.D. 08/23 Xanax 08/24 Hx Tablets 1mg 5tabs 1 tab every night at [facility], - bedtime M.D. 11/15 Cephalexin 08/24 Hx [...] Hx Tablets 20mg 7tabs 1 po qd Crhis, - M.D. 01/24 Percocet 05/28 Hx Tablets [...] /min O2 % BldC Oximetry 98 % [place] Score 1 Neck Circumference in inches 15.5 [...] Procedures Date CPT Code Description Status 12/12/2017 26681 Ultrasound Head/Neck Completed 12/12/2017 79590 Dilation Salivary Duct Completed 08/15/2016 71935 Nasal Endoscopy, Diag. Completed 02/22/2016 11489 Nasal Endoscopy, Diag. Completed 09/15/2015 51625 Therapeutic, Prophylactic Or Diagnostic Injection Completed Subq/Im 07/29/2015 64964 Nasal Endoscopy, Diag. Completed 06/29/2015 39161 Nasal Endoscopy, Diag. Completed 11/16/2014 06366 Nasal Endoscopy, Diag. Completed 07/13/2014 60039 Fiberoptic Laryngoscopy,Diag. Completed 04/27/2014 85657 Nasal Endoscopy, Diag. Completed 09/07/2012 63562 Sleep Staging 4Or More Para Completed 10/15/2011 02696 Nasal Endoscopy, Diag. Completed 05/31/2011 65480 Balloon Sinuplasty Maxillary Completed 05/31/2011 82671 Balloon Sinuplasty Maxillary Completed 05/31/2011 94192 Balloon Sinuplasty Frontal Sin Completed 05/31/2011 80601 Balloon Sinuplasty Frontal Sin Completed 04/23/2011 44076 Nasal Endoscopy, Diag. Completed 12/20/2006 31263 Nasal Endoscopy, Diag. Completed 12/11/2006 81145 Stereotactic Computer Assisted Volumetric Procedure Completed (Xomed) 12/11/2006 92582 Nasal/Sinus Endosc.W.Explor. Completed 12/11/2006 10526 Nasal/Sinus Endosc.W.Explor. Completed 12/11/2006 76791 Sinusotomy,3 Or More Paranasal S Completed 12/11/2006 56299 Nonobl,W/Osteoplastic Flap Completed 12/11/2006 70922 Septoplasty Completed 10/04/2006 78315 Nasal Endoscopy, Diag. Completed Encounters Type Date Location Provider CPT E/M Dx Office Visit 12/12/2017 3:15p Main Office Chris Camejo M.D. 91654 K11.20 K11.5 R51 Office Visit 12/04/2017 1:45p [place] [address] K11.1 K11.20 Office Visit 08/15/2016 1:30p [place] [facility] Chris Camejo M.D. 53588 R51 J31.0 Office Visit 03/21/2016 12:45p [place] [facility] Chris Camejo M.D. 66855 J32.9 R51 G47.9 G47.00 A49.02 Office Visit 02/22/2016 3:15p [place] [facility] Chris Camejo M.D. 91329 J32.9 Z72.0 R51 Office Visit 11/09/2015 12:30p [place] [facility] Chris Camejo M.D. 07485 J31.0 Z72.0 G47.00 R51 Office Visit 10/19/2015 1:15p [place] [facility] Chris Camejo M.D. 42136 J31.0 Z72.0 R51 J32.9 Office Visit 09/15/2015 4:15p [place] [address] R51 J31.0 Office Visit 08/03/2015 2:30p [place] [facility] Chris Camejo M.D. 78551 R51 J32.9 Office Visit 08/01/2015 10:45a [place] [facility] Renetta Fong M.D. 51887 G47.00 Z72.0 Office Visit 07/29/2015 1:30p Main Office Chris Camejo M.D. 90483 R51 J32.9 J31.0 G47.00 Office Visit 07/06/2015 10:45a [place] [facility] Chris Camejo M.D. 78915 784.0 780.52 473.9 Office Visit 06/29/2015 11:00a [facility] Chris Camejo M.D. 54353 473.9 461.8 780.52 Office Visit 01/11/2015 10:00a [place] [facility] Chris Camejo M.D. 28079 473.9 461.8 472.0 Office Visit 11/16/2014 11:30a [facility] Chris Camejo M.D. 39522 473.9 461.8 780.52 530.81 Office Visit 08/24/2014 10:45a [place] [facility] Chris Camejo M.D. 80119 473.9 461.8 780.52 Office Visit 07/13/2014 9:30a [place] [facility] Chris Camejo M.D. 22335 472.0 530.81 784.1 787.20 Office Visit 04/27/2014 9:00a [place] [facility] Chris Camejo M.D. 46258 473.9 784.0 472.0 995.3 Office Visit 10/23/2013 3:15p [place] [address] 784.0 461.8 Office Visit 01/12/2013 10:30a Main Office Chris Camejo M.D. 41407 473.9 461.8 784.0 Office Visit 09/29/2012 11:30a Main Office Chris Camejo M.D. 00498 473.9 461.8 784.0 780.50 Office Visit 09/08/2012 8:30a Main Office Chris Camejo M.D. 21509 784.0 780.50 461.8 Office Visit 08/13/2012 3:00p Main Office Chris Camejo M.D. 94237 784.0 780.50 473.1 Office Visit 02/13/2012 2:00p Main Office Chris Camejo M.D. 43958 388.70 784.0 Office Visit 01/25/2012 10:30[place] [address] 388.70 Office Visit 10/15/2011 9:45a Main Office Chris Camejo M.D. 06861 473.9 784.0 472.0 Office Visit 04/23/2011 8:15a Main Office Chris Camejo M.D. 75472 473.9 461.1 784.0 Office Visit 01/31/2011 10:45a [place] [address] 784.0 Office Visit 01/24/2011 11:15a [place] [address] 471.0 473.9 470 Office Visit 03/18/2007 1:00p Main Office Chris Camejo M.D. 47989 473.1 Office Visit 12/06/2006 9:15a Main Office Chris Camejo M.D. 00610 473.1 Office Visit 11/06/2006 3:00p Main Office Chris Camejo M.D. 34997 473.1 Office Visit 10/04/2006 11:00a Main Office Chris Camejo M.D. 20289 473.1 470 Plan of Care No Information Available
--- OUTSIDE RECORDS SUMMARY | 2017-12-28 12:26 | XMS REPORT ---
:1970 External Reference #:[id number] Author Organization [facility] [employer] Address [address] [place] [address] Phone [phone] Care Team Providers Name Role Phone Aly Carroll M.D. Care Team Information Automobile Sales Consultant Unavailable Aly Carroll M.D. Primary Care Physician Unavailable Payers Type Date Identification Numbers Payment Provider Subscriber Medicare Primary Policy Number: [id number] Medicare Myron George PayID: [id number] [address] [place] [address] Medicaid Policy Number: [id number] Medicaid Myron George PayID: [id number] [address] [place] [address] Problems Date Description Provider Status Onset: 05/28/2011 [...] mouth , every Chris, morning M.D. Nasal [place] 10/19 Active Solution 0.05% 30ml 2 spray [...] 06/29 Hx Tablets 2mg 14tab one at [facility], /2014 s bedtime [facility], - M.D. 10/18 Azithromycin 06/29 Hx Tablets [...] 11/16 Hx Tablets 10mg 15tab 1 at [facility], Tar s bedtime for Chris, - 30 days M.D. 06/28 Penicillin V 11/16 Hx Tablets 250mg 21tab 1 by mouth Camejo, Potassium s three times Chris, - a day M.D. 01/06 Amoxicillin 08/24 Hx Tablets 875mg 14tab twice a day Camejo, s 1 week Chris, - M.D. 08/23 Xanax 08/24 Hx Tablets 1mg 5tabs 1 tab every night at [facility], - bedtime M.D. 11/15 Cephalexin 08/24 [...] NP Vital Signs Date Vital Result Comment 12/04/2017 Weight 163.00 lb Height 63 inches [...] /min O2 % BldC Oximetry 98 % [place] Score 1 Neck Circumference in inches 15.5 [...] RECIEVED Procedures Date CPT Code Description Status 08/15/2016 51022 Nasal Endoscopy, Diag. Completed 02/22/2016 24369 Nasal Endoscopy, Diag. Completed 09/15/2015 60861 Therapeutic, Prophylactic Or Diagnostic Injection Completed Subq/Im 07/29/2015 22541 Nasal Endoscopy, Diag. Completed 06/29/2015 05333 Nasal Endoscopy, Diag. Completed 11/16/2014 28373 Nasal Endoscopy, Diag. Completed 07/13/2014 72425 Fiberoptic Laryngoscopy,Diag. Completed 04/27/2014 00634 Nasal Endoscopy, Diag. Completed 09/07/2012 34093 Sleep Staging 4Or More Para Completed 10/15/2011 67481 Nasal Endoscopy, Diag. Completed 05/31/2011 67654 Balloon Sinuplasty Maxillary Completed 05/31/2011 66767 Balloon Sinuplasty Maxillary Completed 05/31/2011 07232 Balloon Sinuplasty Frontal Sin Completed 05/31/2011 88272 Balloon Sinuplasty Frontal Sin Completed 04/23/2011 11683 Nasal Endoscopy, Diag. Completed 12/20/2006 88128 Nasal Endoscopy, Diag. Completed 12/11/2006 46254 Stereotactic Computer Assisted Volumetric Procedure Completed (Xomed) 12/11/2006 32222 Nasal/Sinus Endosc.W.Explor. Completed 12/11/2006 55463 Nasal/Sinus Endosc.W.Explor. Completed 12/11/2006 46244 Sinusotomy,3 Or More Paranasal S Completed 12/11/2006 55995 Nonobl,W/Osteoplastic Flap Completed 12/11/2006 76433 Septoplasty Completed 10/04/2006 18149 Nasal Endoscopy, Diag. Completed Encounters Type Date Location Provider CPT E/M Dx Office Visit 12/04/2017 1:45p [place] [address] K11.1 K11.20 Office Visit 08/15/2016 1:30p [place] Chris Camejo M.D. 32054 R51 J31.0 Office Visit 03/21/2016 12:45p [facility] Chris Camejo M.D. 13031 J32.9 R51 G47.9 G47.00 A49.02 Office Visit 02/22/2016 3:15p [facility] Chris Camejo M.D. 86870 J32.9 Z72.0 R51 Office Visit 11/09/2015 12:30p [facility] Chris Camejo M.D. 75431 J31.0 Z72.0 G47.00 R51 Office Visit 10/19/2015 1:15p [facility] Chris Camejo M.D. 13315 J31.0 Z72.0 R51 J32.9 Office Visit 09/15/2015 4:15p [place] [address] R51 J31.0 Office Visit 08/03/2015 2:30p [facility] Chris Camejo M.D. 34101 R51 J32.9 Office Visit 08/01/2015 10:45a [facility] Renetta Fong M.D. 20297 G47.00 Z72.0 Office Visit 07/29/2015 1:30p Main Office Chris Camejo M.D. 29500 R51 J32.9 J31.0 G47.00 Office Visit 07/06/2015 10:45a [facility] Chris Camejo M.D. 14031 784.0 780.52 473.9 Office Visit 06/29/2015 11:00a [facility] Chris Camejo M.D. 63036 473.9 461.8 780.52 Office Visit 01/11/2015 10:00a [facility] Chris Camejo M.D. 59433 473.9 461.8 472.0 Office Visit 11/16/2014 11:30a [facility] Chris Camejo M.D. 01422 473.9 461.8 780.52 530.81 Office Visit 08/24/2014 10:45a [facility] Chris Camejo M.D. 06479 473.9 461.8 780.52 Office Visit 07/13/2014 9:30a [facility] Chris Camejo M.D. 93644 472.0 530.81 784.1 787.20 Office Visit 04/27/2014 9:00a [facility] Chris Camejo M.D. 36395 473.9 784.0 472.0 995.3 Office Visit 10/23/2013 3:15p [place] [address] 784.0 461.8 Office Visit 01/12/2013 10:30a Main Office Chris Camejo M.D. 01563 473.9 461.8 784.0 Office Visit 09/29/2012 11:30a Main Office Chris Camejo M.D. 24457 473.9 461.8 784.0 780.50 Office Visit 09/08/2012 8:30a Main Office Chris Camejo M.D. 99851 784.0 780.50 461.8 Office Visit 08/13/2012 3:00p Main Office Chrsi Camejo M.D. 31280 784.0 780.50 473.1 Office Visit 02/13/2012 2:00p Main Office Chris Camejo M.D. 21547 388.70 784.0 Office Visit 01/25/2012 10:30[place] [address] 388.70 Office Visit 10/15/2011 9:45a Main Office Chris Camejo M.D. 87174 473.9 784.0 472.0 Office Visit 04/23/2011 8:15a Main Office Chris Camejo M.D. 97573 473.9 461.1 784.0 Office Visit 01/31/2011 10:45[place] [address] 784.0 Office Visit 01/24/2011 11:15a [place] [address] 471.0 473.9 470 Office Visit 03/18/2007 1:00p Main Office Chris Camejo M.D. 48421 473.1 Office Visit 12/06/2006 9:15a Main Office Chris Camejo M.D. 99636 473.1 Office Visit 11/06/2006 3:00p Main Office Chris Camejo M.D. 79664 473.1 Office Visit 10/04/2006 11:00a Main Office Chris Camejo M.D. 38007 473.1 470 Plan of Care Future Appointment(s):12/12/2017 3:15 pm - Chris Camejo M.D. at [id number] 10:15 am - Chris Camejo M.D. at Main Office
--- OUTSIDE RECORDS SUMMARY | 2017-12-28 12:26 | XMS REPORT ---
:1970 External Reference #:[id number] Author Organization [facility] Address [address] [place] [address] Phone [phone] Care Team Providers Name Role Phone Aly Carroll M.D. Care Team Information Crowning Inspector Unavailable Aly Carroll M.D. Primary Care Physician Unavailable Payers Type Date Identification Numbers Payment Provider Subscriber Medicare Primary Policy Number: [id number] Medicare Myron George PayID: [id number] [address] [place] [address] Medicaid Policy Number: [id number] Medicaid Myron George PayID: [id number] [address] [place] [address] Problems Date Description Provider Status Onset: 05/28/2011 [...] mouth , every Chris, morning M.D. Nasal Erhard 10/19 Active Solution 0.05% 30ml 2 spray each side Hcris, daily M.D. Dermotic 07/18 Active Oil 0.01% [...] 06/29 Hx Tablets 2mg 14tab one at [facility], /2014 s bedtime [facility], - M.D. 10/18 Azithromycin 06/29 Hx Tablets [...] 11/16 Hx Tablets 10mg 15tab 1 at [facility] Tar s bedtime for Chris, - 30 days M.D. 06/28 Penicillin V 11/16 Hx Tablets 250mg 21tab 1 by mouth Camejo, Potassium s three times Chris, - a day M.D. 01/06 Amoxicillin 08/24 Hx Tablets 875mg 14tab twice a day Camejo, s 1 week Chris, - M.D. 08/23 Xanax 08/24 Hx Tablets 1mg 5tabs 1 tab every night at [facility], - bedtime M.D. 11/15 Cephalexin 08/24 [...] NP Vital Signs Date Vital Result Comment 12/12/2017 Weight 187.00 lb Height 63 inches [...] /min O2 % BldC Oximetry 98 % Onancock Score 1 Neck Circumference in inches 15.5 [...] Procedures Date CPT Code Description Status 08/15/2016 16084 Nasal Endoscopy, Diag. Completed 02/22/2016 65598 Nasal Endoscopy, Diag. Completed 09/15/2015 85732 Therapeutic, Prophylactic Or Diagnostic Injection Completed Subq/Im 07/29/2015 31087 Nasal Endoscopy, Diag. Completed 06/29/2015 40064 Nasal Endoscopy, Diag. Completed 11/16/2014 76165 Nasal Endoscopy, Diag. Completed 07/13/2014 97414 Fiberoptic Laryngoscopy,Diag. Completed 04/27/2014 81600 Nasal Endoscopy, Diag. Completed 09/07/2012 43180 Sleep Staging 4Or More Para Completed 10/15/2011 59074 Nasal Endoscopy, Diag. Completed 05/31/2011 25754 Balloon Sinuplasty Maxillary Completed 05/31/2011 53026 Balloon Sinuplasty Maxillary Completed 05/31/2011 62055 Balloon Sinuplasty Frontal Sin Completed 05/31/2011 84022 Balloon Sinuplasty Frontal Sin Completed 04/23/2011 25522 Nasal Endoscopy, Diag. Completed 12/20/2006 36580 Nasal Endoscopy, Diag. Completed 12/11/2006 40265 Stereotactic Computer Assisted Volumetric Procedure Completed (Xomed) 12/11/2006 35580 Nasal/Sinus Endosc.W.Explor. Completed 12/11/2006 25865 Nasal/Sinus Endosc.W.Explor. Completed 12/11/2006 84245 Sinusotomy,3 Or More Paranasal S Completed 12/11/2006 78708 Nonobl,W/Osteoplastic Flap Completed 12/11/2006 09795 Septoplasty Completed 10/04/2006 83715 Nasal Endoscopy, Diag. Completed Encounters Type Date Location Provider CPT E/M Dx Office Visit 12/04/2017 1:45p [place] [address] K11.1 K11.20 Office Visit 08/15/2016 1:30p [facility] Chris Camejo M.D. 49936 R51 J31.0 Office Visit 03/21/2016 12:45p [facility] Chris Camejo M.D. 36008 J32.9 R51 G47.9 G47.00 A49.02 Office Visit 02/22/2016 3:15p [facility] Chris Camejo M.D. 74016 J32.9 Z72.0 R51 Office Visit 11/09/2015 12:30p [facility] Chris Camejo M.D. 63458 J31.0 Z72.0 G47.00 R51 Office Visit 10/19/2015 1:15p [facility] Chris Camejo M.D. 67659 J31.0 Z72.0 R51 J32.9 Office Visit 09/15/2015 4:15p [place] [address] R51 J31.0 Office Visit 08/03/2015 2:30p [facility] Chris Camejo M.D. 04386 R51 J32.9 Office Visit 08/01/2015 10:45a [facility] Renetta Fong M.D. 06108 G47.00 Z72.0 Office Visit 07/29/2015 1:30p [facility] Chris Camejo M.D. 52338 R51 J32.9 J31.0 G47.00 Office Visit 07/06/2015 10:45a [facility] Chris Camejo M.D. 61787 784.0 780.52 473.9 Office Visit 06/29/2015 11:00a [facility] Chris Camejo M.D. 19234 473.9 461.8 780.52 Office Visit 01/11/2015 10:00a [facility] Chris Camejo M.D. 55375 473.9 461.8 472.0 Office Visit 11/16/2014 11:30a [facility] Chris Camejo M.D. 70888 473.9 461.8 780.52 530.81 Office Visit 08/24/2014 10:45a [facility] Chris Camejo M.D. 91850 473.9 461.8 780.52 Office Visit 07/13/2014 9:30a [facility] Chris Camejo M.D. 33059 472.0 530.81 784.1 787.20 Office Visit 04/27/2014 9:00a [facility] Chris Camejo M.D. 61483 473.9 784.0 472.0 995.3 Office Visit 10/23/2013 3:15p [place] [address] 784.0 461.8 Office Visit 01/12/2013 10:30a [facility] Chris Camejo M.D. 10269 473.9 461.8 784.0 Office Visit 09/29/2012 11:30a [facility] Chris Camejo M.D. 45004 473.9 461.8 784.0 780.50 Office Visit 09/08/2012 8:30a [facility] Chris Camejo M.D. 21540 784.0 780.50 461.8 Office Visit 08/13/2012 3:00p [facility] Chris Camejo M.D. 09290 784.0 780.50 473.1 Office Visit 02/13/2012 2:00p [facility] Chris Camejo M.D. 06079 388.70 784.0 Office Visit 01/25/2012 10:30[place] [address] 388.70 Office Visit 10/15/2011 9:45a [facility] Chris Camejo M.D. 38080 473.9 784.0 472.0 Office Visit 04/23/2011 8:15a [facility] Office Chris Camejo M.D. 03328 473.9 461.1 784.0 Office Visit 01/31/2011 10:45[place] [address] 784.0 Office Visit 01/24/2011 11:15a [place] [address] 471.0 473.9 470 Office Visit 03/18/2007 1:00p [facility] Office Chris Camejo M.D. 65994 473.1 Office Visit 12/06/2006 9:15a [facility] Office Chris Camejo M.D. 16661 473.1 Office Visit 11/06/2006 3:00p [facility] Office Chris Camejo M.D. 41656 473.1 Office Visit 10/04/2006 11:00a Main Office Chris Camejo M.D. 46269 473.1 [facility] Plan of Care Future Appointment(s):12/17/2017 10:15 am - Chris Camejo M.D. at Main Office
--- OUTSIDE RECORDS SUMMARY | 2017-12-28 12:27 | XMS REPORT ---
:1970 External Reference #:[id number] Author Organization [facility] Address [address] [place] [address] Phone [phone] Care Team Providers Name Role Phone Aly Carroll M.D. Care Team Information Turning Sander Tender Unavailable Aly Carroll M.D. Primary Care Physician Unavailable Payers Type Date Identification Numbers Payment Provider Subscriber Medicare Primary Policy Number: [id number] Medicare Myron George PayID: [id number] [address] [place] [address] Medicaid Policy Number: [id number] Medicaid Myron George PayID: [id number] [address] [place] [address] Problems Date Description Provider Status Onset: 05/28/2011 [...] Form Strength Qnty SIG Indications Ordering Provider Azithromycin 12/28 Active Tablets 250mg 11tab 2 by mouth , s every day Chris, 1, 1 by M.D. mouth every day 2-10 Xyzal 09/03 Active Tablets 5mg 30tab 1 by mouth , s every day Toni Perez. Singulair 03/09 Active Tablets 10mg 90tab 1 by mouth , s every day Chris MSiomaraD. Prednisone 10/19 Active Tablets 10mg 5tabs 1 by mouth , every Chris, morning M.D. Nasal Sherman 10/19 Active Solution 0.05% 30ml 2 spray each side Chris, daily M.D. Dermotic 07/18 Active Oil 0.01% 3unit apply 5 s drops twice Chris, a day to M.D. affected ear canal(s)for 7-14 days Fluticasone 07/04 Active Suspension 50mcg/Act 1unit 2 sprays , s both Chris, nostrils M.D. every day Naproxen 05/02 Active Tablets 250mg 60tab one tab s twice daily Chris M.DSiomara Propranolol HCL Active Tablets 60mg 1 po bid Celecoxib 08/15 Hx Capsules 100mg 10cap 1 by mouth , s twice a day Chris, - M.D. 08/16 Diflucan 08/06 Hx Tablets 100mg 5tabs take 2 pills the Chris, - first day M.D. 08/14 then 1 pill /2015 daily until gone. Azithromycin 06/15 Hx Tablets 250mg 11tab 2 by mouth , s every day Chris, - 1, 1 by M.D. 08/14 mouth day 2-10 Bactroban 03/21 Hx Cream 2% 1unit apply , s soaringly Chris, - twice a day M.D. 08/14 to twice daily Clindamycin HCL 03/21 Hx Capsules 300mg 10cap 1 by mouth , s twice a day Chris, - x 5 days M.D. 08/07 Bactrim DS 02/26 Hx Tablets 800-160mg 28tab 1 by mouth Camejo, s twice a day Chris, - x [...] 06/29 Hx Tablets 2mg 14tab one at [facility], /2014 s bedtime Renetta, - M.D. 10/18 Azithromycin 06/29 Hx Tablets 250mg 6tabs 2 by mouth Camejo, every day Chris, - 1, 1 by M.D. 07/18 mouth every day 2-5 Diflucan 02/07 Hx Tablets 150mg 2tabs 1 by mouth Camejo, x 2 1 Chris, - before and M.D. 06/28 1 after antibiotic treatment Dexamethasone 01/24 Hx Tablets 4mg 5tabs one tab Camejo, daily for 5 Chris, - days M.D. 06/28 Lunesta 01/11 Hx Tablets 2mg 5tabs 1 tab.qhs Camejo, Chris, - M.D. 07/05 Cephalexin 01/07 Hx Tablets 500mg 63tab 500 mg Camejo, s three times Chris, - a day 21 M.D. 06/21 days Zolpidem 11/16 Hx Tablets 10mg 15tab 1 at [facility], Tar s bedtime for [facility], - 30 days M.D. 06/28 Penicillin V 11/16 Hx Tablets 250mg 21tab 1 by mouth Camejo, s three times Chris, - a day M.D. 01/06 Amoxicillin 08/24 Hx Tablets 875mg 14tab twice a day s 1 week Chris, - M.D. 08/23 Xanax 08/24 Hx Tablets 1mg 5tabs 1 tab every night at [facility], - bedtime M.D. 11/15 Cephalexin 08/24 Hx Tablets 500mg 21tab 500 mg Camejo, s three times Chris, - a day 7 M.D. Omeprazole 07/[address] 40mg 60cap 1 by mouth s every day Chris, - M.D. 11/15 Oxycodone-Acetam 07/13 Hx Tablets 5-325mg 20tab 1-2 by Bashir s mouth every Chris, - 6 as needed M.D. 11/15 Cephalexin 06/25 Hx Tablets 500mg 30tab 500 mg tid Camejo, s 10 days Chris, - M.D. 07/12 Hydrocodone 04/27 Hx Tablets 5-300mg Bashir Bitartrate/a Chris, minophen - M.D. 04/27 Percocet 04/27 Hx Tablets 5-325mg 20tab 2 by mouth Camejo s four times [facility], - a day as M.D. 07/12 needed for pain Jennifer Allergy 04/27 Hx Tablets 180mg 90tab one daily s for 90 days Chris, - M.D. 07/12 Cephalexin 04/27 Hx Tablets 500mg 21tab 500 mg Camejo, s three times Chris, - a day 7 M.D. Augmentin 04/21 Hx Tablets 875-125mg 14tab twice a day Camejo, s 1 week Chris, - M.D. 04/26 Cephalexin 10/23 Hx Tablets 500mg 30tab 500 mg tid , s 10 days Chris, - M.D. 04/26 Prednisone 10/23 Hx Tablets 20mg 5tabs 1 po qd Chris, - M.D. 04/26 Cephalexin 01/12 Hx Tablets 500mg 21tab 500 mg tid , s 7 days Chris, - M.D. 10/23 Prednisone 01/12 Hx Tablets 20mg 4tabs 1 po qd Chris, - M.D. 10/23 Jennifer Allergy 09/29 Hx Tablets 180mg 60tab one tab a Bashir, s day Chris, - M.D. 01/12 Doxycycline 09/29 Hx Tablets 100mg 60tab 1 tab twice Bashir, s daily for Chris, - 30 days M.D. 01/12 Prednisone 09/08 Hx Tablets 10mg 5tabs 1 po qam Camejo, Chris, - M.D. 01/12 Oxycodone HCL 08/13 Hx Tablets 10mg 40tab one tab q4h s prn for Chris, - pain. M.D. 01/12 Cephalexin 08/04 Hx Tablets 500mg 15tab 1 po bid x s 5 days Chris, - M.D. 01/12 Percocet 02/12 Hx Tablets 5-325mg 15tab 2 po qid Camejo, s prn for Chris, - pain M.D. 01/12 Prednisone 01/24 Hx Tablets 20mg 6tabs 2 po qd x 3 , days Chris, - M.D. 02/12 Fluticasone 01/24 Hx Suspension 50mcg/Act 1unit 1 spray Camejo, s each Chris, - nostril qd M.D. 01/24 Nasonex 01/24 Hx Suspension 50mcg/Act 1unit 2 sprays Camejo, s each Chris, - nostril qd M.D. [...] Hx Tablets 20mg 7tabs 1 po qd , Chris, - M.D. 01/24 Percocet 05/28 Hx [...] Tablets 30mg 60tab 1 tab q 4 , s hours as Chris, - needed M.D. 04/26 congestion Loratadine 01/31 Hx Tablets 10mg 30tab 1 po qd s Chris - M.D. 02/05 Cephalexin 01/24 Hx Camejo, Chris, - M.D. 05/28 Flonase 01/24 Hx Suspension 50mcg/Act 1unit 2 sprays s both Chris, - nostrils qd M.D. 01/24 Hydrocodone-Acet 00/00 Hx Tablets 10-325mg 40tab 1 tab q4-6h Unknown aminophen /0000 s prn - 10/23 Methadone HCL 00/00 Hx Tablets 10mg 60six 3 tablets 6 Unknown /0000 ty hourly - 11/15 Ambien 00/00 Hx Tablets 10mg 30tab 1 po qhs Unknown /0000 s - 01/24 Xanax 00/ Hx Tablets 1mg 1 x day Unknown / - 01/12 Rolaids 00 Hx Chewtabs 550-110mg 3-4 tabs qh Unknown /0000 - 01/24 Prednisone 00/00 Hx Tablets 20mg 6tabs Unknown / - 01/24 Tums 00 Hx Chewtabs 500mg prn Unknown / - 04/26 Lunesta 00 Hx Tablets 3mg 60tab alt. with Unknown /0000 s ambien - 05/28 Bactrim DS / Hx Unknown / - 01/[address] 20mg 1 po qd Unknown / - 01/24 Clonazepam 00/ Hx Tablets 2mg 2 po hs Unknown /0000 - 07/12 Ambien 00/ Hx Tablets 10mg 30tab 1 po qhs Unknown / s - 04/26 Hydrocodone 00/00 Hx Tablets 10-325mg Unknown / - 04/27 Hydrocodone 00/00 Hx Unknown / - 11/15 Xanax 00/00 Hx Tablets Unknown / - 08/24 Ambien 0000 Hx 10mg 15uni one tab Unknown /0000 [...] /min O2 % BldC Oximetry 98 % Helper Score 1 Neck Circumference in inches 15.5 [...] Procedures Date CPT Code Description Status 08/15/2016 11029 Nasal Endoscopy, Diag. Completed 02/22/2016 38581 Nasal Endoscopy, Diag. Completed 09/15/2015 54209 Therapeutic, Prophylactic Or Diagnostic Injection Completed Subq/Im 07/29/2015 86902 Nasal Endoscopy, Diag. Completed 06/29/2015 75611 Nasal Endoscopy, Diag. Completed 11/16/2014 73497 Nasal Endoscopy, Diag. Completed 07/13/2014 82424 Fiberoptic Laryngoscopy,Diag. Completed 04/27/2014 88953 Nasal Endoscopy, Diag. Completed 09/07/2012 53516 Sleep Staging 4Or More Para Completed 10/15/2011 03641 Nasal Endoscopy, Diag. Completed 05/31/2011 64719 Balloon Sinuplasty Maxillary Completed 05/31/2011 37362 Balloon Sinuplasty Maxillary Completed 05/31/2011 01599 Balloon Sinuplasty Frontal Sin Completed 05/31/2011 90628 Balloon Sinuplasty Frontal Sin Completed 04/23/2011 95632 Nasal Endoscopy, Diag. Completed 12/20/2006 50483 Nasal Endoscopy, Diag. Completed 12/11/2006 08120 Stereotactic Computer Assisted Volumetric Procedure Completed (Xomed) 12/11/2006 21650 Nasal/Sinus Endosc.W.Explor. Completed 12/11/2006 54112 Nasal/Sinus Endosc.W.Explor. Completed 12/11/2006 23832 Sinusotomy,3 Or More Paranasal S Completed 12/11/2006 33882 Nonobl,W/Osteoplastic Flap Completed 12/11/2006 21812 Septoplasty Completed 10/04/2006 23671 Nasal Endoscopy, Diag. Completed Encounters Type Date Location Provider CPT E/M Dx Office Visit 08/15/2016 1:30p [facility] Chris Camejo M.D. 99457 R51 J31.0 Office Visit 03/21/2016 12:45p [facility] Chris Camejo M.D. 08596 J32.9 R51 G47.9 G47.00 A49.02 Office Visit 02/22/2016 3:15p [facility] Chris Camejo M.D. 35866 J32.9 Z72.0 R51 Office Visit 11/09/2015 12:30p [facility] Chris Camejo M.D. 05879 J31.0 Z72.0 G47.00 R51 Office Visit 10/19/2015 1:15p [facility] Chris Camejo M.D. 76935 J31.0 Z72.0 R51 J32.9 Office Visit 09/15/2015 4:15p [place] [address] R51 J31.0 Office Visit 08/03/2015 2:30p [facility] Chris Camejo M.D. 70514 R51 J32.9 Office Visit 08/01/2015 10:45a [facility] Renetta Fong M.D. 71206 G47.00 Z72.0 Office Visit 07/29/2015 1:30p [facility] Chris Camejo M.D. 67663 R51 J32.9 J31.0 G47.00 Office Visit 07/06/2015 10:45a [facility] Chris Camejo M.D. 31017 784.0 780.52 473.9 Office Visit 06/29/2015 11:00a [facility] Chris Camejo M.D. 66133 473.9 461.8 780.52 Office Visit 01/11/2015 10:00a [facility] Chris Camejo M.D. 48310 473.9 461.8 472.0 Office Visit 11/16/2014 11:30a [facility] Chris Camejo M.D. 22813 473.9 461.8 780.52 530.81 Office Visit 08/24/2014 10:45a [facility] Chris Camejo M.D. 38248 473.9 461.8 780.52 Office Visit 07/13/2014 9:30a [facility] Chris Camejo M.D. 77876 472.0 530.81 784.1 787.20 Office Visit 04/27/2014 9:00a [facility] Chris Camejo M.D. 90159 473.9 784.0 472.0 995.3 Office Visit 10/23/2013 3:15p [place] [address] 784.0 461.8 Office Visit 01/12/2013 10:30a [facility] Chris Camejo M.D. 80971 473.9 461.8 784.0 Office Visit 09/29/2012 11:30a [facility] Chris Camejo M.D. 36261 473.9 461.8 784.0 780.50 Office Visit 09/08/2012 8:30a [facility] Chris Camejo M.D. 43806 784.0 780.50 461.8 Office Visit 08/13/2012 3:00p [facility] Chris Camejo M.D. 63603 784.0 780.50 473.1 Office Visit 02/13/2012 2:00p [facility] Chris Camejo M.D. 48881 388.70 784.0 Office Visit 01/25/2012 10:30[place] [address] 388.70 Office Visit 10/15/2011 9:45a [facility] Chris Camejo M.D. 95013 473.9 784.0 472.0 Office Visit 04/23/2011 8:15a [facility] Chris Camejo M.D. 31653 473.9 461.1 784.0 Office Visit 01/31/2011 10:45a [place] [address] 784.0 Office Visit 01/24/2011 11:15a [place] [address] 471.0 473.9 470 Office Visit 03/18/2007 1:00p [facility] Chris Camejo M.D. 98441 473.1 Office Visit 12/06/2006 9:15a [facility] Chris Camejo M.D. 64379 473.1 Office Visit 11/06/2006 3:00p [facility] Chris Camejo M.D. 87372 473.1 Office Visit 10/04/2006 11:00a [facility] Chris Camejo M.D. 42125 473.1 470 Plan of Care No Information Available
[2017-12-28 12:52] VITALS: BP 103/70
[2017-12-28] MEDS ORDERED: Amoxicillin PO (*) 500 MG CAP PO ONE (13:36)
--- NOTE | 2017-12-28 13:36 | UC ---
Dental HPI - HPI Summary HPI Summary: Had surgery to remove a salivary stone last week this week he noticed worsening pain and swelling patient opened the pustula on the bottom of his mouth and got good pain relief---now he notices continued pain and firmness on floor of mouth - History of Current Complaint Chief Complaint: UCDentalProblem Stated Complaint: DENTAL PAIN Time Seen by Provider: 12/28/17 13:25 Hx Obtained From: Patient Hx From Patient Unobtainable Due To: Dementia Onset/Duration: Gradual Onset, Lasting Days, Still Present Severity: Moderate Pain Intensity: 4 Aggravating Factor(s): Nothing Alleviating Factor(s): Other (see comments) - opening the wound himself - Allergies/Home Medications Allergies/Adverse Reactions: Allergies Allergy/AdvReac Type Severity Reaction Status Date / Time MS Sulfamethoxazole Allergy Severe Anaphylatic Verified 11/28/17 12:53 w/Trimethoprim Shock [From Bactrim] MS Quinolones [Quinolones] Allergy Unknown Unknown Verified 11/28/17 12:53 Reaction Details MS Tramadol [Tramadol] Allergy Unknown Unknown Verified 11/28/17 12:53 Reaction Details MS Carbamazepine Allergy throat Verified 11/28/17 12:53 [From Tegretol] swelling MS Ciprofloxacin Allergy Anaphylatic Verified 11/28/17 12:53 [Ciprofloxacin] Shock MS Erythromycin Allergy Hives Verified 11/28/17 12:53 [Erythromycin] MS Gabapentin Allergy sedation Verified 11/28/17 12:53 [From Neurontin] MS Iodinated Diagnostic Allergy Anaphylatic Verified 11/28/17 12:53 Agents Shock [Iodinated Diagnostic Agents] MS Ketorolac Tromethamine Allergy Vomiting Verified 11/28/17 12:53 [From Toradol] MS Moxifloxacin [From Avelox] Allergy Anaphylatic Verified 11/28/17 12:53 Shock MS Quetiapine [From Seroquel] Allergy See Comment Verified 11/28/17 12:53 MS Trazodone [Trazodone] Allergy throat Verified 11/28/17 12:53 swells MS Valproic Acid Allergy sedation Verified 11/28/17 12:53 [From Depakote] MS Ziprasidone [From Geodon] Allergy See Comment Verified 11/28/17 12:53 PT HAS 39 MED ALLERGIES - Allergy See Comment Uncoded 11/28/17 12:53 ?NAMES PMH/Surg Hx/FS Hx/Imm Hx Previously Healthy: No GI/ History: Gastroesophageal Reflux Psychological History: Anxiety Cancer History: Other Other Cancer History: 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 APPENDECTOMY. 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, LOWER BRAIN TISSUE REMOVED - DUE TO INFECTION, PLATE IN FOREHEAD - Family History Known Family History: Positive: Cardiac Disease, Hypertension, Diabetes, Other - lung cancer - Social History Occupation: Disabled Lives: [employer] Alcohol Use: None Substance Use Type: None Substance Use Comment - Amount & Last Used: crack once in a while Smoking Status (MU): Former Smoker Type: Cigarettes Amount Used/How Often: 1/2 PPD When Did the Patient Quit Smoking/Using Tobacco: 3 months Household Exposure Type: Cigarettes - Immunization History Most Recent Influenza Vaccination: 2016 Review of Systems Constitutional: Negative Skin: Negative Eyes: Negative ENT: Negative, Other - open pustula in mouth no active bleeding or draining Respiratory: Negative Cardiovascular: Negative Gastrointestinal: Negative Genitourinary: Negative Motor: Negative Neurovascular: Negative Musculoskeletal: Negative Neurological: Negative Psychological: Negative Is Patient Immunocompromised?: No All Other Systems Reviewed And Are Negative: Yes Physical Exam Triage Information Reviewed: Yes Appearance: Well-Appearing, No Pain Distress, Well-Nourished Vital Signs: Initial Vital Signs Temp 96.9 F 12/28/17 12:45 Pulse 67 12/28/17 12:45 Resp 18 12/28/17 12:45 BP 103/70 12/28/17 12:45 Pulse Ox 96 12/28/17 12:45 Vital Signs Reviewed: Yes Eye Exam: Normal Eyes: Positive: Conjunctiva Clear ENT Exam: Normal ENT: Positive: Normal ENT inspection, Hearing grossly normal, Pharynx normal, TMs normal, Uvula midline, Other - open pustula with out bleeding or drainage and no evidence of a stone on the floor of his mouth. Negative: Tonsillar swelling, Tonsillar exudate, Trismus, Muffled voice, Hoarse voice, Dental tenderness, Sinus tenderness Dental Exam: Normal Dental: Positive: Other: - open pustula. Negative: Cellulitis @, Cervical Lymphadenopathy, Bleeding Neck exam: Normal Neck: Positive: Supple, Nontender, No Lymphadenopathy Respiratory Exam: Normal Respiratory: Positive: Chest non-tender, Lungs clear, Normal breath sounds, No respiratory distress Cardiovascular Exam: Normal Cardiovascular: Positive: RRR, No Murmur, Pulses Normal, Brisk Capillary Refill Musculoskeletal Exam: Normal Musculoskeletal: Positive: Strength Intact, ROM Intact, No Edema Neurological Exam: Normal Neurological: Positive: Alert, Muscle Tone Normal Psychological Exam: Normal Skin Exam: Normal Dental Complaint Course/Dx - Course Course Of Treatment: Amoxicillin, magic mouth wash, chlorhexadine follow with oral surgeon this week - Differential Dx/Diagnosis Provider Diagnoses: mouth infection s/p surgery Discharge - Discharge Plan Condition: Stable Disposition: HOME Prescriptions: Amoxicillin PO (*) [Amoxicillin 500 MG CAP*] 500 mg PO TID #29 cap Chlorhexidine MOUTHWASH 0.12%* [Peridex Mouth Wash 0.12%*] 15 ml MT BID #473 btl Magic M W2 Brandan/Maal/Nyst/Lido* 5 ml SWISH SPIT QID PRN #280 ml PRN Reason: Pain (Dental) Patient Education Materials: Wound Infection (ED) Referrals: Ryan Villa MD [Primary Care Provider] - Additional Instructions: Follow with oral surgeon this week
== END 2017-12-28 13:45 | disposition home or self-care (01) ==
LOC: UCEAST 12:16
DX: T81.4XXA Infection following a procedure, initial encounter (principal); K11.20 Sialoadenitis, unspecified; K21.9 Gastro-esophageal reflux disease without esophagitis; F41.9 Anxiety disorder, unspecified; Z88.5 Allergy status to narcotic agent; Z88.2 Allergy status to sulfonamides; Z88.8 Allergy status to other drugs, medicaments and biological substances; Z88.1 Allergy status to other antibiotic agents; Z91.041 Radiographic dye allergy status; Z87.891 Personal history of nicotine dependence
CPT/HCPCS: 99212; A9270-GY; G0463

== ENCOUNTER 2018-01-11 09:41 | Emergency (ER) | payer MEDICARE, MEDICAID ==
--- OUTSIDE RECORDS SUMMARY | 2018-01-11 09:51 | XMS REPORT ---
:1970 External Reference #:[id number] Author Organization [employer] Address [address] [place] [address] Phone [phone] Care Team Providers Name Role Phone Aly Carroll M.D. Care Team Information Marketing Rep Unavailable Aly Carroll M.D. Primary Care Physician Unavailable Payers Type Date Identification Numbers Payment Provider Subscriber Medicare Primary Policy Number: [id number] Medicare Myron George PayID: [id number] [address] [place] [address] Medicaid Policy Number: [id number] Medicaid Myron George PayID: [id number] [address] [place] [address] Problems Date Description Provider Status Onset: 05/28/2011 [...] 12/04 Active Liquid 1:1:1 30ml 2.5 cubic centimeters Chris, swish and M.D. spit 2-3 times a day. do not swallow. mylanta:saida adryl:lidoc jim Xyzal 09/03 Active Tablets 5mg 30tab 1 by mouth s every day Chris, M.D. Singulair 03/09 Active Tablets 10mg 90tab 1 by mouth s every day Chris, M.D. Prednisone 10/19 Active Tablets 10mg 5tabs 1 by mouth , every Chris, morning M.D. Nasal [place] 10/19 Active Solution 0.05% 30ml 2 [...] HCL Active Tablets 60mg 1 po bid Azithromycin 12/28 Hx Tablets 250mg 11tab 2 by mouth , s every day Chris, - 1, 1 by M.D. 01/07 mouth day 2-10 Celecoxib 08/15 Hx Capsules 100mg 10cap 1 by mouth s twice a day Chris, - M.D. 08/16 Diflucan 08/06 Hx Tablets 100mg 5tabs take 2 pills the Chris, - first day M.D. 08/14 then 1 pill /2015 daily until gone. Azithromycin 06/15 Hx Tablets 250mg 11tab 2 by mouth , s every day Chris, - 1, 1 by M.D. 08/14 mouth every day 2-10 Bactroban 03/21 Hx Cream 2% 1unit apply s soaringly Chris, - twice a day [...] Hx Tablets 180mg 30tab 1 by mouth Camejo, s every day Chris, - M.D. 08/30 Dexamethasone 02/21 Hx Tablets 4mg 5tabs one tab daily for 5 Chris, - days M.D. 08/30 Azithromycin 11/09 Hx Tablets 250mg 11tab 2 by mouth , s every day Chris, - 1, 1 by M.D. 03/09 mouth day 2-10 Alprazolam 06/29 Hx Tablets 2mg 14tab one at [facility], s bedtime Renetta, - M.D. 10/18 Azithromycin 06/29 Hx Tablets 250mg 6tabs 2 by mouth Camejo, every day Chris, - 1, 1 by M.D. 07/18 mouth every day 2-5 Diflucan 02/07 Hx Tablets 150mg 2tabs 1 by mouth Bashir, x 2 1 Chris, - before and M.D. 06/28 1 after antibiotic treatment Dexamethasone 01/24 Hx Tablets 4mg 5tabs one tab Bashir, daily for 5 Chris, - days M.D. 06/28 Lunesta 01/11 Hx Tablets 2mg 5tabs 1 tab.q Bashir Chris, - M.D. 07/05 Cephalexin 01/07 Hx Tablets 500mg 63tab 500 mg Camejo, s three times Chris, - a day 21 M.D. Zolpidem 11/16 Hx Tablets 10mg 15tab 1 at [facility], Tar s bedtime for Chris, - 30 days M.D. 06/28 Penicillin V 11/16 Hx Tablets 250mg 21tab 1 by mouth Camejo, Potassium s three times Chris, - a day M.D. 01/06 Amoxicillin 08/24 Hx Tablets 875mg 14tab twice a day Camejo, s 1 week Chris, - M.D. 08/23 Xanax 08/24 Hx Tablets 1mg 5tabs 1 tab every night at [facility], - bedtime M.D. 11/15 Cephalexin 08/24 Hx Tablets 500mg 21tab 500 mg Camejo, s three times Crhis, - a day 7 M.D. Omeprazole 07/13 [...] Hx Tablets 5-325mg 20tab 2 by mouth Camejo, s four times Chris, - a day as M.D. 07/12 needed for pain Jennifer Allergy 04/27 Hx Tablets 180mg 90tab one daily Camejo, s for 90 days Chris, - M.D. 07/12 Cephalexin 04/27 Hx Tablets 500mg 21tab 500 mg s three times Chris, - a day 7 M.D. Augmentin 04/21 Hx Tablets 875-125mg 14tab twice a day s 1 week Chris, - M.D. 04/26 Cephalexin 10/23 Hx Tablets 500mg 30tab 500 mg tid s 10 days Chris, - M.D. 04/26 Prednisone 10/23 Hx Tablets 20mg 5tabs 1 po qd Camejo, Chris, - M.D. 04/26 Cephalexin 01/12 Hx [...] Hx Suspension 50mcg/Act 1unit 1 spray Bashir, s each Chris, - nostril qd M.D. [...] Chris - M.D. 02/05 Cephalexin 01/24 Hx Chris - M.DSiomara 05/28 Flonase 01/24 Hx Suspension 50mcg/Act 1unit 2 sprays Bashir, s both Chris, - nostrils qd M.D. 01/24 Hydrocodone-Acet Hx Tablets 10-325mg 40tab 1 tab q4-6h Unknown aminophen /0000 s prn - 10/23 Methadone HCL Hx Tablets 10mg 60six 3 tablets 6 Unknown /0000 ty hourly - 11/15 Ambien Hx Tablets 10mg 30tab 1 po qhs Unknown /0000 s - 01/24 Xanax Hx Tablets 1mg 1 x day Unknown / - 01/12 Rolaids Hx Chewtabs 550-110mg 3-4 tabs qh Unknown /0000 - 01/24 Prednisone Hx Tablets 20mg 6tabs Unknown / - 01/24 Tums Hx Chewtabs 500mg prn Unknown / - 04/26 Lunesta Hx Tablets 3mg 60tab alt. with Unknown /0000 s ambien - 05/28 Bactrim DS Hx Unknown / - 01/[address] 20mg 1 po qd Unknown / - 01/24 Clonazepam Hx Tablets 2mg 2 po hs Unknown / - 07/12 Ambien Hx Tablets 10mg 30tab 1 po qhs Unknown /0000 s - 04/26 Hydrocodone 00/00 Hx Tablets 10-325mg Unknown / - 04/27 Hydrocodone 00/00 Hx Unknown /0000 - 11/15 Xanax 00/00 Hx Tablets Unknown / - 08/24 Ambien 00 Hx 10mg 15uni one tab Unknown /0000 ts daily - 11/15 Medications Administered in Office Medication Date Status Form Strength Qnty SIG Indications Ordering Provider Dexamethasone Administered Injection Daniella Oconnor NP Vital Signs Date Vital Result Comment 01/07/2018 Weight 188.00 lb Height 63 inches 5'3" BMI (Body Mass Index) 33.3 kg/m2 BP Systolic 115 mmHg BP Diastolic 72 mmHg Heart Rate 68 /min O2 % BldC Oximetry 95 % Body Temperature 98.0 F Pain Level 8 mouth 12/24/2017 Weight 187.00 lb Height 63 inches [...] /min O2 % BldC Oximetry 98 % Burnett Score 1 Neck Circumference in inches 15.5 [...] Procedures Date CPT Code Description Status 12/12/2017 69311 Ultrasound Head/Neck Completed 12/12/2017 11830 Dilation Salivary Duct Completed 08/15/2016 32171 Nasal Endoscopy, Diag. Completed 02/22/2016 37514 Nasal Endoscopy, Diag. Completed 09/15/2015 32206 Therapeutic, Prophylactic Or Diagnostic Injection Completed Subq/Im 07/29/2015 03750 Nasal Endoscopy, Diag. Completed 06/29/2015 53055 Nasal Endoscopy, Diag. Completed 11/16/2014 49347 Nasal Endoscopy, Diag. Completed 07/13/2014 62008 Fiberoptic Laryngoscopy,Diag. Completed 04/27/2014 07399 Nasal Endoscopy, Diag. Completed 09/07/2012 85775 Sleep Staging 4Or More Para Completed 10/15/2011 38318 Nasal Endoscopy, Diag. Completed 05/31/2011 09268 Balloon Sinuplasty Maxillary Completed 05/31/2011 96818 Balloon Sinuplasty Maxillary Completed 05/31/2011 05864 Balloon Sinuplasty Frontal Sin Completed 05/31/2011 75726 Balloon Sinuplasty Frontal Sin Completed 04/23/2011 95236 Nasal Endoscopy, Diag. Completed 12/20/2006 89586 Nasal Endoscopy, Diag. Completed 12/11/2006 33034 Stereotactic Computer Assisted Volumetric Procedure Completed (Xomed) 12/11/2006 68621 Nasal/Sinus Endosc.W.Explor. Completed 12/11/2006 50454 Nasal/Sinus Endosc.W.Explor. Completed 12/11/2006 61663 Sinusotomy,3 Or More Paranasal S Completed 12/11/2006 18500 Nonobl,W/Osteoplastic Flap Completed 12/11/2006 05380 Septoplasty Completed 10/04/2006 32667 Nasal Endoscopy, Diag. Completed Encounters Type Date Location Provider CPT E/M Dx Office Visit 12/17/2017 10:15a Main [facility] Chris Camejo M.D. 42245 K11.20 Office Visit 12/12/2017 3:15p [facility] Chris Camejo M.D. 38022 K11.20 K11.5 R51 Office Visit 12/04/2017 1:45p [place] [address] K11.1 K11.20 Office Visit 08/15/2016 1:30p [facility] Chris Camejo M.D. 96565 R51 J31.0 Office Visit 03/21/2016 12:45p [facility] Chris Camejo M.D. 97880 J32.9 R51 G47.9 G47.00 A49.02 Office Visit 02/22/2016 3:15p [facility] Chris Camejo M.D. 77563 J32.9 Z72.0 R51 Office Visit 11/09/2015 12:30p [facility] Chris Camejo M.D. 75559 J31.0 Z72.0 G47.00 R51 Office Visit 10/19/2015 1:15p [facility] Chris Camejo M.D. 80221 J31.0 Z72.0 R51 J32.9 Office Visit 09/15/2015 4:15p [place] [address] R51 J31.0 Office Visit 08/03/2015 2:30p [facility] Chris Camejo M.D. 41723 R51 J32.9 Office Visit 08/01/2015 10:45a [facility] Renetta Fong M.D. 30752 G47.00 Z72.0 Office Visit 07/29/2015 1:30p [facility] Chris Camejo M.D. 68744 R51 J32.9 J31.0 G47.00 Office Visit 07/06/2015 10:45a [facility] Chris Camejo M.D. 31411 784.0 780.52 473.9 Office Visit 06/29/2015 11:00a [facility] Chris Camejo M.D. 31614 473.9 461.8 780.52 Office Visit 01/11/2015 10:00a [facility] Chris Camejo M.D. 77642 473.9 461.8 472.0 Office Visit 11/16/2014 11:30a [facility] Chris Camejo M.D. 68048 473.9 461.8 780.52 530.81 Office Visit 08/24/2014 10:45a [facility] Chris Camejo M.D. 50951 473.9 461.8 780.52 Office Visit 07/13/2014 9:30a [facility] Chris Camejo M.D. 42484 472.0 530.81 784.1 787.20 Office Visit 04/27/2014 9:00a [facility] Chris Camejo M.D. 29906 473.9 784.0 472.0 995.3 Office Visit 10/23/2013 3:15p [place] [address] 784.0 461.8 Office Visit 01/12/2013 10:30a [facility] Chris Camejo M.D. 61720 473.9 461.8 784.0 Office Visit 09/29/2012 11:30a [facility] Chris Camejo M.D. 50568 473.9 461.8 784.0 780.50 Office Visit 09/08/2012 8:30a [facility] Chris Camejo M.D. 84014 784.0 780.50 461.8 Office Visit 08/13/2012 3:00p [facility] Chris Camejo M.D. 23941 784.0 780.50 473.1 Office Visit 02/13/2012 2:00p [facility] Chris Camejo M.D. 65712 388.70 784.0 Office Visit 01/25/2012 10:30[place] [address] 388.70 Office Visit 10/15/2011 9:45a [facility] Office Chris Camejo M.D. 42955 473.9 784.0 472.0 Office Visit 04/23/2011 8:15a [facility] Chris Camejo M.D. 75502 473.9 461.1 784.0 Office Visit 01/31/2011 10:45a [place] [address] 784.0 Office Visit 01/24/2011 11:15a [place] [address] 471.0 473.9 470 Office Visit 03/18/2007 1:00p [facility] Office Chris Camejo M.D. 30627 473.1 Office Visit 12/06/2006 9:15a [facility] Chris Camejo M.D. 48349 473.1 Office Visit 11/06/2006 3:00p [facility] Office Chris Camejo M.D. 08250 473.1 Office Visit 10/04/2006 11:00a Main Office Chris Camejo M.D. 93136 473.1 470 Plan of Care No Information Available
--- OUTSIDE RECORDS SUMMARY | 2018-01-11 09:52 | XMS REPORT ---
:1970 External Reference #:[id number] Author Organization [employer] Address [address] [address] Phone [phone] Care Team Providers Name Role Phone Ryan Villa MD Primary Care Physician Unavailable Payers Type Date Identification Numbers Payment Provider Subscriber Medicare Primary Policy Number: [id number] Medicare Altagracia Rodriguez PayID: [id number] [address] [place] [address] Medigap Part B Expires: 2016 Policy Number: [id number] Medicaid Altagracia Rodriguez Group Name: [id number] [address] PayID: [id number] [place] [address] Medigap Part B Effective: 2017 Policy Number: [id number] Medicaid Altagracia Rodriguez Group Name: 1 1 [address] PayID: [id number] [place] [address] Problems Date Description Provider Status Onset: 12/20/2011 [...] Strength Qnty SIG Indications Ordering Provider Ketoconazole 07/29/ Active Powder 100gm Apply to B35.3 Brad 2016 affected JUSTEN Yuan areas twice daily Hydroxyzine HCL 06/19/ Active Tablets 50mg 120tab 1-2 G47.00 Brad 2016 s tablets 4 JUSTEN Yuan times daily as needed for itching Ambien 03/07/ Active Tablets 5mg 30tabs 1 tab by Estrella 2017 mouth MD Allison every night as needed Pepcid 04/04/ Active Tablets 20mg 60tabs take 1 K21.9 Brad 2015 tablet by JUSTEN Yuan mouth two times daily as needed Singulair / Active Tablets 10mg 1 by mouth Unknown 0000 every day prn Propranolol HCL / Active Caps ER 60mg 1 by mouth Unknown ER 0000 24HR twice daily Effexor XR / Active Caps ER 37.5mg 1 by mouth Unknown 0000 24HR every day Zyrtec Allergy / Active Tablets 10mg 1 by mouth Unknown 0000 every day at bedtime Buspirone HCL / Active Tablets 30mg 1 po bid Unknown 0000 Buspirone HCL 07/29/ Hx Tablets 10mg 90tabs take 2 Brad 2017 - tablets by JUSTEN Yuan 12/29/ mouth 2 2018 times daily. Increase to 2 1/2 tbs bid after 3 days. Can increase 3 tablets bid after 3 days Buspirone HCL 07/29/ Hx Tablets 10mg 90tabs take 2 Brad 2017 - tablets by JUSTEN Yuan 12/29/ mouth 2 2018 times daily. Increase to 2 1/2 tbs bid after 3 days. Can increase 3 tablets bid after 3 days Permethrin 06/19/ Hx Cream 5% 60gm apply R21 Brad 2016 - cream from JUSTEN Yuan 07/29/ your neck 2017 to the soles of your feet. let sit for 8-14 hours and wash off. repeat in 7 days. Buspirone HCL 06/19/ Hx Tablets 5mg 180tab take 2 1/2 Brad 2017 - s tab twice JUSTEN Yuan 07/29/ a day x 3 2016 days then increase to 3 tab twice a day tab bid. Nicotine 06/11/ Hx Lozenges 4mg 60unit 1 by mouth Estrella Polacrilex 2017 - s every 4 MD Allison 07/15/ hours as 2017 needed Lunesta 01/08/ Hx Tablets 2mg 30tabs 1 tablet Estrella 2017 - by mouth MD Allison 04/15/ for sleep 2017 as needed Xanax 01/08/ Hx Tablets 1mg 60tabs 1-2 tabs Estrella 2016 - as needed MD Allison 07/15/ for sleep 2017 Xanax XR 11/26/ Hx Tablets ER 2mg 30tabs 1 tablet G47.00 Estrella 2017 - 24HR at bedtime MD Allison 11/27/ [...] - 24HR at bedtime MD Allison 08/30/ 2015 anxiety Xanax 10// Hx Tablets 2mg 30tabs 1 tablet Estrella 2015 - at bedtime MD Allison 01/08/ 2016 anxiety Oxycodone HCL 08/27/ Hx Tablets 5mg 28tabs 1 tablet R10.9 [place] 2015 - every 12 JUSTEN Yuan 06/23/ hours as 2016 needed for pain. Oxycodone HCL 10// Hx Tablets 5mg 14tabs 1 tablet R10.9 [place] 2015 - every 12 JUSTEN Yuan 08/23/ hours as 2015 needed for pain Oxycodone HCL 07/30/ Hx Tablets 5mg 14tabs 1 tablet R10.9 [place] 2015 - every 12 JUSTEN Yuan 08/06/ hours as 2015 needed for pain Ketoconazole 07/30/ Hx Cream 2% 15gm apply to [place] 2016 - affected JUSTEN Yuan 08/29/ area twice 2016 daily Dexilant 04/11/ Hx Capsules 30mg 30caps one K21.9 [place] 2015 - capsule JUSTEN Yuan 07/30/ daily 2016 No Active 04/04/ Hx Unknown Medications 2015 - 2015 Lansoprazole 04/04/ Hx Capsules 15mg 30caps 1 tablet K21.9 [place] 2016 - DR daily JUSTEN Yuan 2015 Lunesta 04/04/ Hx Tablets 2mg 30tabs one tablet G47.00 [place] 2016 - by mouth JUSTEN Yuan 11/25/ 2016 night at bedtime as needed for insomnia Hydrocodone/Rafael / Hx Tablets 10-325mg 80tabs 2 po q 6 Temi taminophen 0000 - hrs prn Jhonatan, 04/04/ pain M.D. 2011 Methadose / Hx Tablets 10mg 40tabs 1 po q Tem[place] 0000 - 6hrs prn Jhonatan, 04/04/ pain M.D. 2011 Xanax / Hx Tablets 1mg 40tabs 1 po q Temi 0000 - 6hrs prrenae Israel, 04/04/ pain M.D. 2011 Ambien / Hx Tablets 10mg 30tabs 1 po qhs Unknown 0000 - prn sleep 2011 Celexa / Hx Tablets 40mg 30tabs 1 po qd Unknown 0000 - 2011 Meclizine / Hx Capsules 25mg as needed Unknown 0000 - 2017 Dexamethasone 00/ Hx Tablets 4mg Take One Unknown 0000 - Tablet By Mouth 2015 Every Day For 7 Days Azithromycin / Hx Tablets 250mg Take 2 Unknown 0000 - Tablets By Mouth On 2015 Day 1 Then 1 Tablet Once Daily On Days 2 10 Prednisone 00/ Hx Tablets 20mg 1 by mouth Unknown 0000 - every day (rx'd by 2015 ENT) Prednisone / Hx Tablets 20mg 20mg daily Unknown 0000 - 2015 Immunizations CPT Code Status Date Vaccine Reaction Lot # [id number] Given 07/29/2017 Influenza Virus Vaccine, No immediate [id number] Quadrivalent, Split, reaction..jh Preservative Free [id number] Given 08/24/2016 Tdap - no immediate adverse [id number] Tetanus/Diptheria/Acellular reaction noted Pertussis [id number] Given 08/24/2016 Influenza Virus Vaccine, no immediate reaction [id number] Quadrivalent, Split Virus, noted Im Use Vital Signs Date Vital Result Comment 12/30/2017 Height 65.5 inches 5'5.50" Weight 185.38 lb Heart Rate 72 /min BP Systolic Sitting 118 mmHg BP Diastolic Sitting 78 mmHg Respiratory Rate 14 /min Body Temperature 96.8 F BMI (Body Mass Index) 30.4 kg/m2 11/25/2017 Height 65.5 inches 5'5.50" Weight 182.50 [...] Test Date Test Result H/L Range Note Liver Fibrosis Panel Fibrosure 11/28/2017 Fibrosis Score 0.22 Fibrosis Stage F0-F1 Fibrosis Interpretation See Comment 1 Necroinflammat Activity Score 0.47 Necroinflammat Activity Grade A1-A2 Necroinflammat Interpretation See Comment 2 Alpha 2 Macroglobulins, Qn 231 mg/dL 106-279 Haptoglobin 195 mg/dL 43-212 Apolipoprotein A-1 124 mg/dL 94-176 Bilirubin, Total 0.3 mg/dL 0.2-1.2 GGT 43 U/L 3-95 Alt (SGPT) 86 U/L 9-46 Reference Id [id number] Footnote See Comment 3 HIV 1/2 AB Evaluation 11/28/2017 HIV 1 2 Antibody Nonreactive Nonreactive 4 Laboratory test finding 11/28/2017 Syphillis Igg W/Reflex Nonreactive Nonreactive 5 RPR Acetaminophen < 15 g/mL 6 Hepatitis B Surface Ag Nonreactive Nonreactive Hepatitis B Amina AB 11/28/2017 Hepatitis B Surface AB Nonreactive Nonreactive Titer Hep B Surf AB Level < 3.10 mIU/mL <12 7 Laboratory test 11/14/2017 Blood Culture SEE RESULT BELOW 8 finding Rapid Influenza A 11/14/2017 Influenza A Molecular NEGATIVE Negative 9 & B Molecular Influenza B Molecular NEGATIVE Negative Laboratory test 11/14/2017 Rapid Influenza A B SEE RESULT BELOW 10 finding Antigen Inr/Protime 11/14/2017 Inr 0.90 0.77-1.02 Laboratory test 11/14/2017 Partial Thrombo Time 30.2 seconds 26.0-36.3 finding PTT Comp Metabolic Panel 11/14/2017 Sodium 135 mmol/L [...] Egfr Non- 86.4 >60 Egfr 111.1 >60 11 Laboratory test finding 11/14/2017 C Reactive Protein 14.97 mg/L High &lt ; 5.00 12 Lactic Acid 0.6 mmol/L 0.5-2.0 13 CBC Auto Diff 11/14/2017 White Blood Count [...] Cells % 0.2 Laboratory test finding 11/14/2017 Erythrocyte Sed Rate 19 mm/Hr High 0- 14 Blood Culture SEE RESULT BELOW 14 Quantiferon Gold TB 10/02/2017 M tuberculosis by Negative Negative 15, 16 Quantiferon TB Ag minus Nil Result -0.01 IU/mL 15 TB Mitogen minus Nil Result > 10.00 IU/mL 15 TB Nil Result 0.06 IU/mL 15, 17 Laboratory test finding 10/02/2017 Hemoglobin A1c (Glyco HGB) 5.4 % 4.0- 5.6 15, 18 Hepatitis C Rna Quant [id number] IU/mL Undetected 15, 19 GC/Chlamydia Amplified Rna 10/02/2017 Chlamydia trachomatis Negative Negative 15 Rna Neisseria gonorrhoeae (GC) Rna Negative Negative 15 Laboratory test 10/02/2017 Hepatitis C High Reactive Nonreactive 15, 20 finding Antibody Comp Metabolic Panel 10/02/2017 Sodium 138 mmol/L 133-145 15 Potassium 4.0 mmol/L 3.5-5.0 15 Chloride 103 mmol/L 101-111 15 Co2 Carbon Dioxide 27 mmol/L 22-32 15 Anion Gap 8 mmol/L 2-11 15 Glucose 92 mg/dL 70-100 15 Blood Urea Nitrogen 15 mg/dL 6-24 15 Creatinine 0.98 mg/dL 0.67-1.17 15 BUN/Creatinine Ratio 15.3 8-20 15 Calcium 9.5 mg/dL 8.6-10.3 15 Total Protein 7.3 g/dL 6.4-8.9 15 Albumin 4.2 g/dL 3.2-5.2 15 Globulin 3.1 g/dL 2-4 15 Albumin/Globulin Ratio 1.4 1-3 15 Total Bilirubin 0.30 mg/dL 0.2-1.0 15 Alkaline Phosphatase 68 U/L 34-104 15 Alt 89 U/L High 7-52 15 Ast 37 U/L 13-39 15 Egfr Non- 82.3 >60 15 Egfr 105.9 >60 15, 21 CBC Auto Diff 10/02/2017 White Blood Count 11.0 10^3/uL High 3.5-10.8 15 Red Blood Count 4.81 10^6/uL 4.0-5.4 15 Hemoglobin 14.5 g/dL 14.0-18.0 15 Hematocrit 44 % 42-52 15 Mean Corpuscular Volume 91 fL 80-94 15 Mean Corpuscular Hemoglobin 30 pg 27-31 15 Mean Corpuscular HGB Conc 33 g/dL 31-36 15 Red Cell Distribution Width 15 % 10.5-15 15 Platelet Count 305 10^3/uL 150-450 15 Mean Platelet Volume 8 um3 7.4-10.4 15 Abs Neutrophils 5.1 10^3/uL 1.5-7.7 15 Abs Lymphocytes 4.5 10^3/uL 1.0-4.8 15 Abs Monocytes 1.2 10^3/uL High 0-0.8 15 Abs Eosinophils 0.1 10^3/uL 0-0.6 15 Abs Basophils 0.1 10^3/uL 0-0.2 15 Abs Nucleated RBC 0.02 10^3/uL 15 Granulocyte % 46.6 % 38-83 15 Lymphocyte % 41.1 % 25-47 15 Monocyte % 10.5 % High 1-9 15 Eosinophil % 1.1 % 0-6 15 Basophil % 0.7 % 0-2 15 Nucleated Red Blood Cells % 0.2 15 Urinalysis Profile 10/02/2017 Urine Color Yellow 15 Urine Appearance Clear 15 Urine Specific [place] 1.020 1.010-1.030 15 Urine pH 5.0 5-9 15 Urine Urobilinogen Negative Negative 15 Urine Ketones Negative Negative 15 Urine Protein Negative Negative 15 Urine Leukocytes Negative Negative 15 Urine Blood Negative Negative 15 * * Negative 15, 22 Urine Nitrite Negative Negative 15 Urine Bilirubin Negative Negative 15 Urine Glucose Negative Negative 15 Comp Metabolic Panel 06/21/2017 Sodium 138 mmol/L [...] Egfr Non- 108.8 >60 Egfr 139.9 >60 23 Potassium TNP mmol/L 3.5-5.0 Anion Gap 8 mmol/L 2-11 Ast TNP U/L 13-39 Laboratory test finding 06/21/2017 Blood Culture SEE RESULT BELOW 24 Erythrocyte Sed Rate 13 mm/Hr 0-14 C Reactive Protein 30.83 mg/L High < 5.00 25 Laboratory test finding 06/21/2017 Ferritin 231.5 ng/mL 24-336 Iron & Iron Binding 06/21/2017 Total Iron Binding 284 g/dL 250-450 Capacity Capacity Iron TNP g/dL 50-212 Unsaturated Iron Binding TNP g/dL % Iron Saturation TNP % 15-55 26 CBC Auto Diff 06/21/2017 White Blood Count [...] test finding 06/19/2017 Hepatitis C Rna Quant [id number] IU/mL Undetected 27 Comp Metabolic Panel 06/19/2017 Sodium 139 mmol/L [...] Egfr Non- 105.6 >60 Egfr 135.8 >60 28 CBC Auto Diff 06/19/2017 White Blood Count [...] mg/dL 1.9-2.7 Lyme Disease Serology Negative Negative 29 Amylase 19 U/L Low 29-103 Lipase 15 [...] Laboratory test 06/19/2017 Pathologist Review (SEE NOTE) 30 finding Laboratory test 12/27/2016 TSH (Thyroid Stim 0.19 mcIU/mL Low 0.34-5.60 finding Horm) T3 Free 5.00 pg/mL High 2.5-3.9 Free T4 (Free Thyroxine) 1.12 ng/dL 0.61-1.12 HCV Rna Genotype 1 Ns5a Drug Resist 12/27/2016 HCV NS5a Subtype 1a HCV Daclatasvir Resistance NOT PREDICTED HCV Ledipasvir Resistance NOT PREDICTED Ombitasvir Resistance NOT PREDICTED HCV Elbasvir Resistance NOT PREDICTED HCV Velpatasvir Resistance NOT PREDICTED 31 Laboratory test 11/27/2016 Surgical Interface SEE RESULT BELOW 32, 33 finding Order Laboratory test 10/22/2016 Hepatitis C Rna [id number] IU/mL Undetected 34 finding Quant Drug Abuse 20 Urine 09/26/2016 Urine Amphetamine Negative ng/mL 35 Urine Barbiturates Negative ng/mL 36 Urine Benzodiazepines Negative ng/mL 37 Urine Cocaine Negative ng/mL 38 Urine Phencyclidine Negative ng/mL Cutoff: 25 Urine Tetrahydrocannabinol Negative ng/mL Cutoff: 50 39 Creatinine 35.3 mg/dL Specific [place] 1.005 pH 6.5 Oxidants Negative 40 Adulterants Comment Normal Codeine, Ur Not Detected ng/mL Cutoff: 25 41 Goafcoj-6-uucr-glucuronide, Ur Not Detected ng/mL 42 Morphine, Ur Not Detected ng/mL Cutoff: 25 43 Crynkemi-5-vddw-glucuronide, U Not Detected ng/mL 44 6-monoacetylmorphine, Ur Not Detected ng/mL Cutoff: 25 45 Hydrocodone, Ur Not Detected ng/mL Cutoff: 25 46 Norhydrocodone, Ur Not Detected ng/mL Cutoff: 25 47 Dihydrocodeine, Ur Not Detected ng/mL Cutoff: 25 48 Hydromorphone, Ur Not Detected ng/mL Cutoff: 25 49 Rglvroedjvozo6opckwozkhhawwrf Not Detected ng/mL 50 Oxycodone, Ur Not Detected ng/mL Cutoff: 25 51 Noroxycodone, Ur Not Detected ng/mL Cutoff: 25 52 Oxymorphone, Ur Not Detected ng/mL Cutoff: 25 53 Qvwluvbgdrh-1-upei-glucuronide Not Detected ng/mL 54 Noroxymorphone, Ur Not Detected ng/mL Cutoff: 25 55 Fentanyl, Ur Not Detected ng/mL Cutoff: 2 56 Norfentanyl, Ur Not Detected ng/mL Cutoff: 2 57 Meperidine, Ur Not Detected ng/mL Cutoff: 25 58 Normeperidine, Ur Not Detected ng/mL Cutoff: 25 59 Naloxone, Ur Not Detected ng/mL Cutoff: 25 60 Wxjjgbua-8-pzvo-glucuronide, U Not Detected ng/mL 61 Methadone, Ur Not Detected ng/mL Cutoff: 25 62 Eddp, Ur Not Detected ng/mL Cutoff: 25 63 Propoxyphene, Ur Not Detected ng/mL Cutoff: 25 64 Norpropoxyphene, Ur Not Detected ng/mL Cutoff: 25 65 Tramadol, Ur Not Detected ng/mL Cutoff: 25 66 O-desmethyltramadol, Ur Not Detected ng/mL Cutoff: 25 67 Tapentadol, Ur Not Detected ng/mL Cutoff: 25 68 N-desmethyltapentadol, Ur Not Detected ng/mL Cutoff: 50 69 Zafclynfuq-rddu-polcelbpvef, U Not Detected ng/mL 70 Buprenorphine, Ur Not Detected ng/mL Cutoff: 5 71 Norbuprenorphine, Ur Not Detected ng/mL Cutoff: 5 72 Norbuprenorphine glucuronide Not Detected ng/mL Cutoff: 20 73 Opioid Interpretation See Comment 74 Laboratory test 09/03/2016 Surgical Interface Order SEE RESULT BELOW 75 finding Laboratory test 09/03/2016 Clotest SEE RESULT BELOW 76 finding CMV Igg/Igm 08/27/2016 Cytomegalovirus IgG Positive Negative 77 Antibody Cytomegalovirus IgM Antibody Negative Negative Emmie Sorensen Comprehensive 08/27/2016 Ebv Capsid Ag IgG Ab Positive Negative Ebv Capsid Ag IgM Ab Negative Negative Emmie-Sorensen Nuclear Antigen Positive Negative Emmei-Sorensen Virus Interp See Comment 78 Herpes Simplex Type 08/27/2016 Herpes Simplex Virus I Positive Negative 1&2 Igg IgG AB Herpes Simplex Virus II IgG AB Positive Negative 79 Herpes Simplex Type 08/27/2016 Herpes Simplex Type 1 2 Negative Negative 80 1&2 Igm IgM Laboratory test finding 08/27/2016 Anti Nuclear Antibody 0.2 U 81 Hepatitis C Rna Quant [id number] IU/mL Undetected 82 Hepatitis C Genotype 1a Undetected 83 Smooth Muscle Antibody Negative Negative 84 Liver Fibrosis Panel Fibrosure 08/27/2016 Fibrosis Score 0.09 Fibrosis Stage F0 Fibrosis Interpretation See Comment 85 Necroinflammat Activity Score 0.38 Necroinflammat Activity Grade A1-A2 Necroinflammat Interpretation See Comment 86 Alpha 2 Macroglobulins, Qn 182 mg/dL 106-279 Haptoglobin 200 mg/dL 43-212 Apolipoprotein A-1 172 mg/dL 94-176 Bilirubin, Total 0.3 mg/dL 0.2-1.2 GGT 46 U/L 3-95 Alt (SGPT) 77 U/L 9-46 Reference Id [id number] Footnote See Comment 87 Comp Metabolic Panel 08/24/2016 Sodium 141 mmol/L [...] Egfr Non- 90.1 >60 Egfr 115.9 >60 88 HIV 1/2 AB Evaluation 08/24/2016 HIV 1 2 Antibody Nonreactive Nonreactive 89 CBC Auto Diff 08/02/2016 White Blood Count [...] 0-2 Nucleated Red Blood Cells % 0.1 Hepatitis Acute Panel 08/02/2016 Hepatitis B Surface Nonreactive Nonreactive Antigen Hepatitis A AB IgM Nonreactive Nonreactive Hepatitis C Antibody High Reactive Nonreactive 90 Hepatitis B Core IgM Nonreactive Nonreactive Laboratory test finding 08/02/2016 Amylase 34 U/L 29-103 Lipase 39 U/L 11.0-82.0 Erythrocyte Sed Rate 6 mm/Hr 0-14 91 C Reactive Protein 3.38 mg/L < 5.00 92 Monospot Negative Negative 93 Comp Metabolic Panel 08/02/2016 Sodium 136 mmol/L [...] Egfr Non- 94.9 >60 Egfr 122.0 >60 94 Alt 742 U/L High 7-52 Drug Abuse 20 Urine 01/11/2012 Urine Ampetamines SEE BELOW ng/mL () 95 Urine Opiates Screen SEE BELOW () 96 Urine Opiates Interpretation SEE BELOW () 97 Urine Alcohol Negative mg/dL Cutoff: 30 Urine Barbiturates Negative ng/mL () 98 Urine Opiates Presumptive Posi <SEE NOTE> ng/mL () 99 Urine Phencyclidine Negative ng/mL Cutoff: 25 100 Drug Abuse 20 Urine 12/14/2011 Urine Ampetamines Negative ng/mL () 101 Urine Barbiturates Negative ng/mL () 102 Urine Benzodiazepines Negative ng/mL () 103 Urine Cocaine Negative ng/mL () 104 Urine Methadone Negative ng/mL () 105 Urine Opiates Negative ng/mL () 106 Urine Phencyclidine Negative ng/mL Cutoff: 25 Urine Propoxyphene Negative ng/mL () 107 Urine Tetrahydrocannabinol Negative ng/mL Cutoff: 20 108 1 no fibrosis Fibro Test Score Metavir Score 0.00-0.21 F0 no fibrosis 0.22-0.27 F0-F1 0.28-0.31 F1 minimal fibrosis 0.32-0.48 F1-F2 0.49-0.58 F2 moderate fibrosis 0.59-0.72 F3 advanced fibrosis 0.73-0.74 F3-F4 0.75-1.00 F4 severe fibrosis 2 minimal activity ActiTest Score Metavir Score 0.00-0.17 A0 no activity 0.18-0.29 A0-A1 0.30-0.36 A1 minimal activity 0.37-0.52 A1-A2 0.53-0.60 A2 significant activity 0.61-0.62 A2-A3 0.63-1.00 A3 severe activity 3 The reliability of results is dependent on compliance with the preanalytical and analytical conditions recommended by [employer]. The tests have to be deferred for: [...] The performance characteristics have been determined by [employer]. It has not been cleared or approved by the U.S. Food and Drug Administration. Performance characteristics refer to the analytical performance of the test. [employer], the associated logo, [employer] and all associated [employer] he are the registered trademarks of [employer]. All third green party he - (R) and (TM) - are the property of their respective owners. (C) [id number] [employer]. All rights reserved. Test Performed by: [employer] [address] [place] [address] 4 It is recognized that currently available assays [...] 95% confidence interval of 99.78 to 99.96%. 5 Warning: A positive result is not useful for establishing a diagnosis of syphilis. In most situations, such a result may reflect a prior treated infection; a negative result can exclude a diagnosis of syphilis except for incubating or early primary disease. 6 Therapeutic concentration: <50 ug/mL Toxic concentration: >120 ug/mL 7 This assay does not differentiate between reactivity due to a vaccine-induced immune response or an immune response induced by infection with HBV. 8 SEE RESULT BELOW Name: ALTAGRACIA RODRIGUEZ : [address]: Jovanny Sellers MD Acct: [id number] Unit: [id number] AGE: 47 Location: ED Re11/14/17 SEX: M Status: DEP ER SPEC: [id number] JINA: 11/14/[address]: Carina DE PAZ REQ: [id number] RECD: 11/14/17 STATUS: RES OTHR DR: Jovanny Villa MD _ SOURCE: BLOOD,V[facility]: ORDERED: Blood Cult Procedure Result Reported Site Aerobic Culture Bottle Preliminary 11/18/172002 ML No Growth Day 4 Anaerobic Culture Bottle Final 11/19/172000 ML No Growth Day 5 * ML - MAIN LAB ([facility]) . END OF REPORT * ML=Testing performed at Main Lab DEPARTMENT OF PATHOLOGY, [address] [place] [address] Mo Mann M.D. Director [facility] # [id number] Field Associate: [id number] 10 SEE RESULT BELOW Name: ALTAGRACIA RODRIGUEZ : [address]: Jovanny Sellers MD Acct: [id number] Unit: [id number] AGE: 47 Location: ED Re11/14/17 SEX: M Status: REG ER SPEC: [id number] JINA: 11/14/[address]: Carina DE PAZ REQ: [id number] RECD: 11/14/17 STATUS: RICHARD INFANTE DR: Jovanny Villa MD _ SOURCE: NASAL SPDESC: ORDERED: Flu A B Request Procedure Result Reported Site Rapid Influenza A B Request Final 11/14/17- 1825 ML Specimen received for Influenza A/B Molecular testing * ML - MAIN LAB ([facility]) . END OF REPORT * ML=Testing performed at Main Lab DEPARTMENT OF PATHOLOGY, [address] [place] [address] Mo Mann M.D. Director [facility] # [id number] 11 Because ethnic data is not always readily [...] 15-29 5 Kidney failure <15 (or dialysis) 12 Acute inflammation: >10.00 13 [facility] Severe Sepsis and Septic Shock Management Bundle Measure requires all lactic acids initially measuring >2.0 mmol/L be repeated. 14 SEE RESULT BELOW Name: ALTAGRACIA RODRIGUEZ : [address]: Jovanny Sellers MD Acct: [id number] Unit: [id number] AGE: 47 Location: ED Re11/14/17 SEX: M Status: DEP ER SPEC: [id number] JINA: 11/14/[address] [facility] [address]: Carina DE PAZ REQ: [id number] RECD: 11/14/17 STATUS: RES ARELIS DR: Jovanny Villa MD _ SOURCE: BLOOD,VENO SPDESC: ORDERED: Blood Cult Procedure Result Reported Site Aerobic Culture Bottle Preliminary 11/15/171820 ML No Growth Day 1 Anaerobic Culture Bottle Preliminary 11/15/171820 ML No Growth Day 1 * ML - MAIN LAB ([facility]) . END OF REPORT * ML=Testing performed at Main Lab DEPARTMENT OF PATHOLOGY, [address] [place] [address] Mo Mann M.D. Director [facility] # [id number] 15 RNA HEP C VIRAL LOAD IF HCV POSITIVE 16 No interferon-gamma response to M. tuberculosis antigens was detected. Infection with M. tuberculosis is unlikely. A negative result alone does not exclude infection with M. tuberculosis. For detailed information regarding test interpretation see: www.[employer]/test-catalog/ Clinical+and+Interpretive/85623 17 Test Performed by: [place] [address] 18 Therapeutic target for the treatment of diabetes mellitus patients is <7% HBA1C, and in selective patients <6.0%. Please refer to [place] [employer] diabetic care guidelines for further information. 19 Result in log IU/mL is 7.03. ADDITIONAL INFORMATION The quantification range of this assay is 15 to 100,000,000 IU/mL (1.18 log to 8.00 log IU/mL). Testing was performed using the radames HCV test ([employer] with the radames 6800 System. Test Performed by: [place] [address] 20 High reactive sample are considered positive for Hepatitis C 21 Because ethnic data is not always [...] 5 Kidney failure <15 (or dialysis) 22 *Ascorbic acid is present which may interfere with detection of blood. 23 Because ethnic data is not always readily [...] 15-29 5 Kidney failure <15 (or dialysis) 24 SEE RESULT BELOW Name: ALTAGRACIA RODRIGUEZ : [address]: Brad Yuan NP Acct: [id number] Unit: [id number] AGE: 47 Location: [facility] Re06/21/17 SEX: M Status: REG REF SPEC: [id number] JINA: 06/21/[address]: Brad Yuan NP REQ: [id number] RECD: 06/21/17 STATUS: COMP _ SOURCE: BLOOD,VENO SPDESC: ORDERED: Blood Cult Procedure Result Reported Site Aerobic Culture Bottle Final 06/26/17- 1606 ML No Growth Day 5 Anaerobic Culture Bottle Final 06/26/17- 1606 ML No Growth Day 5 * ML - MAIN LAB ([facility]) . END OF REPORT * ML=Testing performed at Main Lab DEPARTMENT OF PATHOLOGY, [address] [place] [address] Mo Mann M.D. Director [facility] # [id number] 25 Acute inflammation: >10.00 26 Unable to calculate due to hemolysis. 27 Result in log IU/mL is 6.62. ADDITIONAL INFORMATION The quantification range of this assay is 15 to 100,000,000 IU/mL (1.18 log to 8.00 log IU/mL). Testing was performed by the RADAMES AmpliPrep/RADAMES TaqMan HCV Test, version 2.0 ([employer] Test Performed by: [address] [address] 28 Because ethnic data is not always readily [...] 15-29 5 Kidney failure <15 (or dialysis) 29 Serologic response to B. burgdorferi infection is not detected, but cannot rule out early infection during which low or undetectable antibody levels to B. burgdorferi may be present. If clinically indicated, a new serum specimen should be submitted in 7-14 days. Test Performed by: [address] [address] 30 Leukocytosis with absolute neutrophilia and absolute monocytosis, favor reactive. Reviewed by Latesha Multani MD 31 Mutations Detected: NONE This assay is designed [...] http://hcvguidelines.org. For additional information, please refer to http://education.[employer]/faq/BXN809 This test was developed and its analytical Performance characteristics have been determined by [facility]. It has not been cleared or approved by the FDA. This assay has been validated pursuant to the CLIA regulations and is used for clinical purposes. Test Performed by: [facility], [place] [address] [place] [address] 32 [id number] 33 SEE RESULT BELOW Name: ALTAGRACIA RODRIGUEZ : [address]: Raulito Tompkins MD Acct: [id number] Unit: [id number] AGE: 46 Location: [facility] Re11/27/16 SEX: M Status: DEP REF SPEC: [id number] JINA: 11/27/16-[address] [facility] [address]: Raulito Tompkins MD REQ: [id number] RECD: 11/27/16-7989 STATUS: BECKA INFANTE DR: Rober Yuan VACUUM CLEANER OPERATOR _ ORDERED: LEVEL IV/2 COMMENTS: [id number] FINAL DIAGNOSIS 1. Colon, hepatic flexure, biopsy: [...] performed at Main Lab DEPARTMENT OF PATHOLOGY, [address] [place] [address] Mo Mann M.D. Director [facility] # [id number] 34 Result in log IU/mL is 7.57. ADDITIONAL INFORMATION The quantification range of this assay is 15 to 100,000,000 IU/mL (1.18 log to 8.00 log IU/mL). Testing was performed by the [employer] AmpliPrep/RADAMES TaqMan HCV Test, version 2.0 ([employer] Test Performed by: [address] [address] Cigarette Packer: Ludwin Willard II, M.D., Ph.D. 35 REFERENCE VALUE Cutoff: 500 36 REFERENCE VALUE Cutoff: 200 37 REFERENCE VALUE Cutoff: 100 38 REFERENCE VALUE Cutoff: 150 39 ADDITIONAL INFORMATION This report is intended for use in clinical monitoring or management of patients. It is not intended for use in employment-related testing. 40 REFERENCE VALUE Cutoff: 200 mg/L 41 Tylenol 3 42 Metabolite of codeine REFERENCE VALUE Cutoff: 100 43 Aide Sev[place], Contin; Also a minor metabolite (10%) of codeine and can be seen in low concentrations (<2,000 ng/mL) with poppy seed ingestion. 44 Metabolite of morphine REFERENCE VALUE Cutoff: 100 45 Metabolite of heroin 46 Lortab, Blaine, Vicodin; Also a very minor metabolite of codeine and impurity (<1%) of oxycodone. 47 Metabolite of hydrocodone 48 Metabolite of hydrocodone 49 Dilaudid, Exalgo; Also a metabolite of hydrocodone and a minor (<5%) metabolite of morphine. 50 Metabolite of hydromorphone REFERENCE VALUE Cutoff: 100 51 Endocet, Percocet, Oxycontin 52 Metabolite of oxycodone 53 Numorphan, Opana; Also a metabolite of oxycodone. 54 Metabolite of oxymorphone REFERENCE VALUE Cutoff: 100 55 Metabolite of oxymorphone 56 Actiq, Duragesic, Fentora 57 Metabolite of fentanyl 58 Demerol 59 Metabolite of meperidine 60 Narcan 61 Metabolite of naloxone REFERENCE VALUE Cutoff: 100 62 Dolophine 63 Metabolite of methadone 64 Darvon, Darvocet 65 Metabolite of propoxyphene 66 Tradol, Ultram, Ultracet 67 Metabolite of tramadol 68 Nucynta 69 Metabolite of tapentadol 70 Metabolite of tapentadol REFERENCE VALUE Cutoff: 100 71 Buprenex, Suboxone 72 Metabolite of buprenorphine 73 Metabolite of buprenorphine 74 No opioids were detected. The absence of expected drug(s) and/or drug metabolite(s) may indicate non-compliance, altered pharmacokinetics, inappropriate timing of specimen collection relative to drug administration, diluted/adulterated urine, or limitations of testing. ADDITIONAL INFORMATION This test was developed and its performance characteristics determined by [facility] in a manner consistent with CLIA requirements. This test has not been cleared or approved by the U.S. Food and Drug Administration. Test Performed by: [facility] [place] [address] Cigarette Packer: Ludwin Willard II, M.D., Ph.D. 75 SEE RESULT BELOW Name: ALTAGRACIA RODRIGUEZ : [address]: Raulito Tompkins MD Acct: [id number] Unit: [id number] AGE: 46 Location: ENDO Re09/03/16 SEX: M Status: DEP REF SPEC: [id number] JINA: 09/03/[address]: Scooter Waite MD REQ: [id number] RECD: 09/03/169534 STATUS: BECKA INFANTE DR: Brad Yuan VACUUM CLEANER OPERATOR _ ORDERED: LEVEL IV FINAL DIAGNOSIS Duodenum, [...] performed at Main Lab DEPARTMENT OF PATHOLOGY, [address] [place] [address] Mo Mann M.D. Director [facility] # [id number] 76 SEE RESULT BELOW Name: ALTAGRACIA RODRIGUEZ : [address]: Raulito Tompkins MD Acct: [id number] Unit: [id number] AGE: 46 Location: ENDO Re09/03/16 SEX: M Status: REG REF SPEC: [id number] JINA: 09/03/[address]: Raulito Tompkins MD REQ: [id number] RECD: 09/03/16 STATUS: RICHARD INFANTE DR: Brad Yuan VACUUM CLEANER OPERATOR _ SOURCE: GAS ANTRUM SPDESC: ORDERED: Clotest Procedure Result Reported Site Clotest Final 09/04/16806 ML Clotest Negative * ML - MAIN LAB ([facility]) . END OF REPORT * ML=Testing performed at Main Lab DEPARTMENT OF PATHOLOGY, [address] [place] [address] Mo Mann M.D. Director [facility] # [id number] 77 Test Performed by: [place] [address] Cigarette Packer: Ludwin Willard II, M.D., Ph.D. 78 RESULT: Results suggest past infection. ADDITIONAL INFORMATION [...] primary infection with EBV. Test Performed by: [place] [address] Cigarette Packer: Ludwin Willard II, M.D., Ph.D. 79 Test Performed by: [place] [address] Cigarette Packer: Ludwin Willard II, M.D., Ph.D. 80 ADDITIONAL INFORMATION This test has been modified from the jail keeper's instructions. Its performance characteristics were determined by [facility] in a manner consistent with CLIA requirements. This test has not been cleared or approved by the U.S. Food and Drug Administration. Test Performed by: [place] [address] Cigarette Packer: Ludwin Willard II, M.D., Ph.D. 81 REFERENCE VALUE <=1.0 (Negative) Test Performed by: [place] [address] Cigarette Packer: Ludwin Willard II, M.D., Ph.D. 82 Result in log IU/mL is 7.94. ADDITIONAL INFORMATION The quantification range of this assay is 15 to 100,000,000 IU/mL (1.18 log to 8.00 log IU/mL). Testing was performed by the [employer]AMES AmpliPrep/RADAMES TaqMan HCV Test, version 2.0 ([employer] Test Performed by: [facility] [place] [address] Cigarette Packer: Ludwin Willard II, M.D., Ph.D. 83 ADDITIONAL INFORMATION This test was performed using the Galvan RealTime HCV Genotype II assay ([employer] [place], [place]). Test Performed by: [place] [address] Cigarette Packer: Ludwin Willard II, M.D., Ph.D. 84 ADDITIONAL INFORMATION This test was developed and its performance characteristics determined by [facility] in a manner consistent with CLIA requirements. This test has not been cleared or approved by the U.S. Food and Drug Administration. Test Performed by: [place] [address] Cigarette Packer: Ludwin Willard II, M.D., Ph.D. 85 no fibrosis Fibro Test Score Metavir Score 0.00-0.21 F0 no fibrosis 0.22-0.27 F0-F1 0.28-0.31 F1 minimal fibrosis 0.32-0.48 F1-F2 0.49-0.58 F2 moderate fibrosis 0.59-0.72 F3 advanced fibrosis 0.73-0.74 F3-F4 0.75-1.00 F4 severe fibrosis 86 minimal activity ActiTest Score Metavir Score 0.00-0.17 A0 no activity 0.18-0.29 A0-A1 0.30-0.36 A1 minimal activity 0.37-0.52 A1-A2 0.53-0.60 A2 significant activity 0.61-0.62 A2-A3 0.63-1.00 A3 severe activity 87 The reliability of results is dependent on [...] The performance characteristics have been determined by [facility]. It has not been cleared or approved by the U.S. Food and Drug Administration. Performance characteristics refer to the analytical performance of the test. Differential, [employer], the associated logo, [employer] and all associated [employer] he are the registered trademarks of [employer]. All third green party he - (R) and (TM) - are the property of their respective owners. (C) [id number] [employer]. All rights reserved. Test Performed by: [email or web address] [address] [place] [address] 88 Because ethnic data is not always readily [...] 15-29 5 Kidney failure <15 (or dialysis) 89 It is recognized that currently available assays [...] 95% confidence interval of 99.78 to 99.96%. 90 High reactive sample are considered positive for Hepatitis C 91 Would you like an EBV if Monospot is Negative?: N 92 Acute inflammation: >10.00 93 Would you like an EBV if Monospot is Negative?: N 94 Because ethnic data is not always readily [...] 15-29 5 Kidney failure <15 (or dialysis) 95 Pain Clinic Survey 10, U was cancelled on 01/15/2012 at 14:17; Quantity not sufficient. -- REFERENCE VALUE -- Cutoff: 500 This report is intended for use in clinical monitoring or management of patients. It is not intended for use in employment-related testing. 96 Pain Clinic Survey 10, U was cancelled on 01/15/2012 at 14:17; Quantity not sufficient. -- REFERENCE VALUE -- Cutoff: 300 -- REFERENCE VALUE -- Cutoff: 100 -- REFERENCE VALUE -- Cutoff: 100 -- REFERENCE VALUE -- Cutoff: 100 -- REFERENCE VALUE -- Cutoff: 100 -- REFERENCE VALUE -- Cutoff: 100 97 Pain Clinic Survey 10, U was cancelled on 01/15/2012 at 14:17; Quantity not sufficient. This report is intended for use in clinical monitoring and management of patients. It is not intended for use in employment-related testing. Test Performed by: [facility] Dpt of Lab Med and Pathology [address] [place] [address] Cigarette Packer: Matteo Man III, M.D. 98 -- REFERENCE VALUE -- Cutoff: 200 -- REFERENCE VALUE -- Cutoff: 200 -- REFERENCE VALUE -- Cutoff: 300 -- REFERENCE VALUE -- Cutoff: 300 99 Presumptive Positive -- REFERENCE VALUE -- Cutoff: 300 100 -- REFERENCE VALUE -- Cutoff: 300 101 -- REFERENCE VALUE -- Cutoff: 500 102 -- REFERENCE VALUE -- Cutoff: 200 103 -- REFERENCE VALUE -- Cutoff: 200 104 -- REFERENCE VALUE -- Cutoff: 300 105 -- REFERENCE VALUE -- Cutoff: 300 106 -- REFERENCE VALUE -- Cutoff: 300 107 -- REFERENCE VALUE -- Cutoff: 300 108 This report is intended for use in clinical monitoring or management of patients. It is not intended for use in employment-related testing. Test Performed by: [facility] Dpt of Lab Med and Pathology [address] [place] [address] Cigarette Packer: Matteo Man III, M.D. Procedures Date CPT Code Description Status 11/27/2016 Colonoscopy Completed Encounters Type Date Location Provider CPT E/M Dx [facility] [address] B18.2 3:40p Infectious Diseases Lester Messina Office Visit 07/29/2017 [facility] [place] [address] Z00.01 11:00a - Joseph B35.3 E05.80 R79.82 D72.829 R94.5 B18.2 G47.00 Z23 Office Visit 07/15/2017 9:40a [facility] Micah Bal, [address] G25.81 - [place] Office Visit 06/19/2017 10:40a [facility] [place] [address] R21 - [place] R11.10 R25.2 E05.80 G47.00 F41.9 B18.2 Office Visit 05/27/2017 9:30a Pul[facility] [address] G47.00 [facility] Office Visit 04/16/2017 9:30a [facility] Rober Levine [address] B18.2 Infectious Diseases Lester Messina E05.80 R63.4 Office Visit 12/03/2016 4:00p [facility] Rober Messina, [address] B18.2 Infectious Diseases Lester R19.7 Office Visit 11/26/2016 10:45a [facility] [address] G47.00 [facility] Office Visit 11/20/2016 9:40a [facility] [place] [address] M54.5 [place] F32.89 G47.00 Office Visit 11/01/2016 10:00a [facility] [place] [address] R10.9 [place] J01.90 Office Visit 10/12/2016 4:20p [facility] [place] [address] M54.5 [place] Office Visit 09/26/2016 8:40a [facility] [place] [address] G47.00 [place] R10.9 Office Visit 09/18/2016 11:30a [facility] Rober Messina, [address]862 B18.2 Infectious Diseases MRamez R74.0 Office Visit 08/30/2016 7:45a Pul[facility] [place] [address] G47.00 [facility] F41.9 G89.4 F95.2 F17.210 Office Visit 08/27/2016 9:00a [facility] [place] [address] R10.9 [place] G47.00 R51 Office Visit 08/24/2016 11:10a [facility] Rober Messina, [address] B18.2 Infectious Diseases Lester R74.0 Z23 Office Visit 07/30/2016 2:00p [facility] [place] [address] R10.9 [place] R21 G47.00 Office Visit 04/04/2016 2:00p [facility] [place] [address] K62.5 [place] K21.9 G47.00 Office Visit 02/05/2012 4:00p [facility] Temi Israel M.D. 00154 338.4 - [place] Office Visit 12/14/2011 11:00a [facility] Temi Israel M.D. 91360 338.4 - [place] Plan of Care Future Appointment(s):02/10/2018 2:20 pm - Rober Messina M.D. at [facility] For Infectious Aahzmwgi92/26/2018 - Rober Messina M.D.B18.2 Chronic viral hepatitis CFollow up:6 weeks
[2018-01-11] MEDS ORDERED: Naproxen TAB* 250 MG PO ONE (11:27)
--- NOTE | 2018-01-11 11:39 | UC ---
Hip/Pelvis Pain - HPI Summary HPI Summary: ran out of naproxen at [facility]---c/o pain in back and bilateral hips R>L - History Of Current Complaint Chief Complaint: UCBackPain Stated Complaint: HIP PAIN, BACK PAIN Time Seen by Provider: 01/11/18 11:19 Hx Obtained From: Patient Mechanism Of Injury: Chronic pain Onset/Duration: Gradual Onset, Worse Since - past week after running out of NSAIDS Timing: Constant Severity Initially: Moderate Severity Currently: Moderate Pain Intensity: 6 Pain Scale Used: 0-10 Numeric Location: Discrete At: - both hips Character Of Pain: Aching, Throbbing Aggravating Factor(s): Nothing Alleviating Factor(s): Other - NAsaids Associated Signs And Symptoms: Positive: Negative - Allergies/Home Medications Allergies/Adverse Reactions: Allergies Allergy/AdvReac Type Severity Reaction Status Date / Time MS Sulfamethoxazole Allergy Severe Anaphylatic Verified 11/28/17 12:53 w/Trimethoprim Shock [From Bactrim] MS Quinolones [Quinolones] Allergy Unknown Unknown Verified 11/28/17 12:53 Reaction Details MS Tramadol [Tramadol] Allergy Unknown Unknown Verified 11/28/17 12:53 Reaction Details MS Carbamazepine Allergy throat Verified 11/28/17 12:53 [From Tegretol] swelling MS Ciprofloxacin Allergy Anaphylatic Verified 11/28/17 12:53 [Ciprofloxacin] Shock MS Erythromycin Allergy Hives Verified 11/28/17 12:53 [Erythromycin] MS Gabapentin Allergy sedation Verified 11/28/17 12:53 [From Neurontin] MS Iodinated Diagnostic Allergy Anaphylatic Verified 11/28/17 12:53 Agents Shock [Iodinated Diagnostic Agents] MS Ketorolac Tromethamine Allergy Vomiting Verified 11/28/17 12:53 [From Toradol] MS Moxifloxacin [From Avelox] Allergy Anaphylatic Verified 11/28/17 12:53 Shock MS Quetiapine [From Seroquel] Allergy See Comment Verified 11/28/17 12:53 MS Trazodone [Trazodone] Allergy throat Verified 11/28/17 12:53 swells MS Valproic Acid Allergy sedation Verified 11/28/17 12:53 [From Depakote] MS Ziprasidone [From Geodon] Allergy See Comment Verified 11/28/17 12:53 PT HAS 39 MED ALLERGIES - Allergy See Comment Uncoded 11/28/17 12:53 ?NAMES PMH/Surg Hx/FS Hx/Imm Hx Previously Healthy: No GI/ History: Gastroesophageal Reflux Psychological History: Anxiety, Depression Other History Of: Hepatitis C - Surgical History Surgical History: Yes Surgery Procedure, Year, and Place: Rt knee surgery- 1985 -. APPENDECTOMY. 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, LOWER BRAIN TISSUE REMOVED - DUE TO INFECTION, PLATE IN FOREHEAD - Family History Known Family History: Positive: Cardiac Disease, Hypertension, Diabetes, Other - lung cancer - Social History Alcohol Use: None Alcohol Amount: allergic Substance Use Type: None Substance Use Comment - Amount & Last Used: Opiate abuse disorder in remission Smoking Status (MU): Current Some Day Smoker Type: Cigarettes Amount Used/How Often: 1/2 PPD When Did the Patient Quit Smoking/Using Tobacco: 3 months Household Exposure Type: Cigarettes - Immunization History Most Recent Influenza Vaccination: 2016 Review of Systems Constitutional: Negative Skin: Negative Eyes: Negative ENT: Negative Respiratory: Negative Cardiovascular: Negative Gastrointestinal: Negative Genitourinary: Negative Motor: Negative Neurovascular: Negative Musculoskeletal: Negative, Arthralgia - both hips Neurological: Negative Psychological: Negative Is Patient Immunocompromised?: No All Other Systems Reviewed And Are Negative: Yes Physical Exam Triage Information Reviewed: Yes Appearance: Well-Appearing, Well-Nourished, Pain Distress Vital Signs: Initial Vital Signs Temp 97.0 F 01/11/18 10:40 Pulse 74 01/11/18 10:40 Resp 18 01/11/18 10:40 BP 114/77 01/11/18 10:40 Pulse Ox 99 01/11/18 10:40 Vital Signs Reviewed: Yes Eye Exam: Normal Eyes: Positive: Conjunctiva Clear ENT Exam: Normal ENT: Positive: Normal ENT inspection, Hearing grossly normal. Negative: Trismus , Muffled voice, Hoarse voice Dental Exam: Normal Neck exam: Normal Neck: Positive: Supple, Nontender Respiratory Exam: Normal Respiratory: Positive: Chest non-tender, No respiratory distress, No accessory muscle use Cardiovascular Exam: Normal Cardiovascular: Positive: RRR, Pulses Normal, Brisk Capillary Refill Musculoskeletal Exam: Other Musculoskeletal: Positive: Strength Intact, No Edema, ROM Limited @, Other: - walking with limp learning forward Neurological Exam: Normal Neurological: Positive: Alert, Muscle Tone Normal Psychological Exam: Normal Skin Exam: Normal Diagnostics - Radiology No standard instances Xray Interpretation: Positive (See Comments) - Mild arthritis in both hips Radiology Interpretation Completed By: Radiologist Hip Injury Course/Dx - Course Course Of Treatment: refilled naproxen and zyrtec---plann to follow with MD or PROM BURN OFF OPERATOR at [facility] - Differential Dx/Diagnosis Provider Diagnoses: Chronic B/L hip pain Discharge - Discharge Plan Condition: Stable Disposition: HOME Prescriptions: Cetirizine* [ZyrTEC 10 MG TAB*] 10 mg PO DAILY #15 tab Naproxen 500 mg PO BID #30 tablet Patient Education Materials: Osteoarthritis (ED), Chronic Pain (ED) Referrals: Destiney Pratt MD [Medical Doctor] - If Needed
--- NOTE | 2018-01-11 12:01 | RAD ---
HISTORY: Worsening hip pain COMPARISONS: February 16, 2011 VIEWS: 5, Frontal view of the pelvis with frontal and frog-leg views of the left hip and of the right hip FINDINGS: Right: BONE DENSITY: Normal. BONES: There is no displaced fracture. JOINTS: There is mild osteoarthritis of the right hip and SI joint. ALIGNMENT: There is no dislocation. The alignment is anatomic. SOFT TISSUES: Unremarkable. Left: BONE DENSITY: Normal. BONES: There is no displaced fracture. JOINTS: There is mild osteoarthritis of the left hip . ALIGNMENT: There is no dislocation. The alignment is anatomic. SOFT TISSUES: Unremarkable. OTHER FINDINGS: None. IMPRESSION: BILATERAL MILD OSTEOARTHRITIS. NO ACUTE OSSEOUS INJURY. IF SYMPTOMS PERSIST, RECOMMEND REPEAT IMAGING.
[2018-01-11 12:40] VITALS: BP 147/67
== END 2018-01-11 12:39 | disposition home or self-care (01) ==
LOC: UCEAST 09:41
DX: M25.552 Pain in left hip (principal); M25.551 Pain in right hip; M16.0 Bilateral primary osteoarthritis of hip; K21.9 Gastro-esophageal reflux disease without esophagitis; F41.9 Anxiety disorder, unspecified; F32.9 Major depressive disorder, single episode, unspecified; Z86.19 Personal history of other infectious and parasitic diseases; Z88.5 Allergy status to narcotic agent; Z88.2 Allergy status to sulfonamides; Z88.8 Allergy status to other drugs, medicaments and biological substances; Z88.1 Allergy status to other antibiotic agents; Z91.041 Radiographic dye allergy status; Z72.0 Tobacco use
CPT/HCPCS: 73523; 81003; 87086; 99212; A9270-GY; G0463

== ENCOUNTER 2018-01-20 10:17 | Emergency (ER) | payer MEDICARE, MEDICAID ==
--- OUTSIDE RECORDS SUMMARY | 2018-01-20 10:26 | XMS REPORT ---
:1970 External Reference #:[id number] Author Organization [employer] Address [address] [place] [address] Phone [phone] Care Team Providers Name Role Phone Aly Carroll M.D. Care Team Information General Duty Nurse Unavailable Aly Carroll M.D. Primary Care Physician Unavailable Payers Type Date Identification Numbers Payment Provider Subscriber Medicare Primary Policy Number: [id number] Medicare Myron George PayID: [id number] [address] [place] [address] Medicaid Policy Number: [id number] Medicaid Myron George PayID: [id number] [address] [place] [address] Problems Date Description Provider Status Onset: 05/28/2011 Chronic sinusitis Emerita Ham PA Active Onset: 05/28/2011 Acute frontal sinusitis Emerita Ham PA Active Onset: 07/29/2015 Chronic rhinitis Chris Camejo M.D. Active Onset: 07/29/2015 Insomnia Chris Camejo M.D. Active Family History Date [...] mouth , every Chris, morning M.D. Nasal [place] 10/19 Active Solution 0.05% 30ml 2 spray [...] 06/29 Hx Tablets 2mg 14tab one at [facility], s bedtime Renetta, - M.D. [...] 11/16 Hx Tablets 10mg 15tab 1 at [facility], Tar s bedtime for Chris, - 30 days M.D. 06/28 Penicillin V 11/16 Hx Tablets 250mg 21tab 1 by mouth Camejo, Potassium s three times Chris, - a day M.D. 01/06 Amoxicillin 08/24 Hx Tablets 875mg 14tab twice a day Camejo, s 1 week Chris, - M.D. 08/23 Xanax 08/24 Hx Tablets 1mg 5tabs 1 tab every night at [facility], - bedtime M.D. 11/15 Cephalexin 08/24 [...] NP Vital Signs Date Vital Result Comment 01/16/2018 Weight 188.00 lb Height 63 inches 5'3" BMI (Body Mass Index) 33.3 kg/m2 BP Systolic 130 mmHg BP Diastolic 90 mmHg Heart Rate 71 /min O2 % BldC Oximetry 95 % Body Temperature 97.8 F Pain Level 8 mouth 01/07/2018 Weight 188.00 lb Height 63 inches [...] /min O2 % BldC Oximetry 98 % [place] Score 1 Neck Circumference in inches 15.5 [...] Procedures Date CPT Code Description Status 12/12/2017 00089 Ultrasound Head/Neck Completed 12/12/2017 25829 Dilation Salivary Duct Completed 08/15/2016 78997 Nasal Endoscopy, Diag. Completed 02/22/2016 82205 Nasal Endoscopy, Diag. Completed 09/15/2015 65370 Therapeutic, Prophylactic Or Diagnostic Injection Completed Subq/Im 07/29/2015 94190 Nasal Endoscopy, Diag. Completed 06/29/2015 33735 Nasal Endoscopy, Diag. Completed 11/16/2014 50996 Nasal Endoscopy, Diag. Completed 07/13/2014 59551 Fiberoptic Laryngoscopy,Diag. Completed 04/27/2014 98414 Nasal Endoscopy, Diag. Completed 09/07/2012 15290 Sleep Staging 4Or More Para Completed 10/15/2011 77458 Nasal Endoscopy, Diag. Completed 05/31/2011 09092 Balloon Sinuplasty Maxillary Completed 05/31/2011 83014 Balloon Sinuplasty Maxillary Completed 05/31/2011 05582 Balloon Sinuplasty Frontal Sin Completed 05/31/2011 08634 Balloon Sinuplasty Frontal Sin Completed 04/23/2011 82389 Nasal Endoscopy, Diag. Completed 12/20/2006 48449 Nasal Endoscopy, Diag. Completed 12/11/2006 64543 Stereotactic Computer Assisted Volumetric Procedure Completed (Xomed) 12/11/2006 73615 Nasal/Sinus Endosc.W.Explor. Completed 12/11/2006 28175 Nasal/Sinus Endosc.W.Explor. Completed 12/11/2006 93271 Sinusotomy,3 Or More Paranasal S Completed 12/11/2006 44619 Nonobl,W/Osteoplastic Flap Completed 12/11/2006 67620 Septoplasty Completed 10/04/2006 75864 Nasal Endoscopy, Diag. Completed Encounters Type Date Location Provider CPT E/M Dx Office Visit 12/17/2017 10:15a Main Office Chris Camejo M.D. 93709 K11.20 Office Visit 12/12/2017 3:15p Main Office Chris Camejo M.D. 68582 K11.20 K11.5 R51 Office Visit 12/04/2017 1:45p [place] [address] K11.1 K11.20 Office Visit 08/15/2016 1:30p [place] [facility] Chris Camejo M.D. 03456 R51 J31.0 Office Visit 03/21/2016 12:45p [place] [facility] Chris Camejo M.D. 44947 J32.9 R51 G47.9 G47.00 A49.02 Office Visit 02/22/2016 3:15p [place] [facility] Chris Camejo M.D. 58852 J32.9 Z72.0 R51 Office Visit 11/09/2015 12:30p [place] [facility] Chris Camejo M.D. 08440 J31.0 Z72.0 G47.00 R51 Office Visit 10/19/2015 1:15p [place] [facility] Chris Camejo M.D. 65541 J31.0 Z72.0 R51 J32.9 Office Visit 09/15/2015 4:15p [place] [address] R51 J31.0 Office Visit 08/03/2015 2:30p [place] [facility] Chris Camejo M.D. 83059 R51 J32.9 Office Visit 08/01/2015 10:45a [place] [facility] Renetta Fong M.D. 01845 G47.00 Z72.0 Office Visit 07/29/2015 1:30p Main Office Chris Camejo M.D. 41836 R51 J32.9 J31.0 G47.00 Office Visit 07/06/2015 10:45a [place] [facility] Chris Camejo M.D. 18781 784.0 780.52 473.9 Office Visit 06/29/2015 11:00a [place] [facility] Chris Camejo M.D. 15722 473.9 461.8 780.52 Office Visit 01/11/2015 10:00a [place] [facility] Chris Camejo M.D. 51149 473.9 461.8 472.0 Office Visit 11/16/2014 11:30a [place] [facility] Chris Camejo M.D. 13508 473.9 461.8 780.52 530.81 Office Visit 08/24/2014 10:45a [place] [facility] Chris Camejo M.D. 27561 473.9 461.8 780.52 Office Visit 07/13/2014 9:30a [place] [facility] Chris Camejo M.D. 52059 472.0 530.81 784.1 787.20 Office Visit 04/27/2014 9:00a [place] [facility] Chris Camejo M.D. 18637 473.9 784.0 472.0 995.3 Office Visit 10/23/2013 3:15p [place] [address] 784.0 461.8 Office Visit 01/12/2013 10:30a Main Office Chris Camejo M.D. 53659 473.9 461.8 784.0 Office Visit 09/29/2012 11:30a Main Office Chris Camejo M.D. 46326 473.9 461.8 784.0 780.50 Office Visit 09/08/2012 8:30a Main Office Chris Camejo M.D. 75388 784.0 780.50 461.8 Office Visit 08/13/2012 3:00p Main Office Chris Camejo M.D. 17149 784.0 780.50 473.1 Office Visit 02/13/2012 2:00p Main Office Chris Camejo M.D. 17309 388.70 784.0 Office Visit 01/25/2012 10:30a [place] [address] 388.70 Office Visit 10/15/2011 9:45a Main Office Chris Camejo M.D. 04850 473.9 784.0 472.0 Office Visit 04/23/2011 8:15a Main Office Chris Camejo M.D. 77142 473.9 461.1 784.0 Office Visit 01/31/2011 10:45a [place] [address] 784.0 Office Visit 01/24/2011 11:15a [place] [address] 471.0 473.9 470 Office Visit 03/18/2007 1:00p Main Office Chris Camejo M.D. 83391 473.1 Office Visit 12/06/2006 9:15a Main Office Chris Camejo M.D. 51946 473.1 Office Visit 11/06/2006 3:00p Main Office Chris Camejo M.D. 01497 473.1 Office Visit 10/04/2006 11:00a Main Office Chris Camejo M.D. 23976 473.1 470 Plan of Care No Information Available
[2018-01-20 10:44] VITALS: BP 113/70
--- NOTE | 2018-01-20 11:19 | UC ---
Respiratory Complaint HPI - HPI Summary HPI Summary: 47 yo WM p/w left sided sinus pain, cough with yellow green sputum x 10 days. Denies f/c/bodyaches - History of Current Complaint Chief Complaint: UCGeneralIllness Stated Complaint: SINUS CONGESTION Time Seen by Provider: 01/20/18 10:47 Hx Obtained From: Patient Severity Initially: Moderate Severity Currently: Moderate Pain Intensity: 0 Character: Cough: Productive - Allergies/Home Medications Allergies/Adverse Reactions: Allergies Allergy/AdvReac Type Severity Reaction Status Date / Time carbamazepine Allergy Swelling Verified 01/20/18 11:16 Of Face,Lips,& Throat ciprofloxacin Allergy Anaphylatic Verified 01/20/18 11:16 Shock divalproex sodium Allergy Sedation Verified 01/20/18 11:16 [From Depakote] erythromycin base Allergy Hives Verified 01/20/18 11:16 gabapentin Allergy Sedation Verified 01/20/18 11:16 Iodinated Contrast- Oral and Allergy Anaphylatic Verified 01/20/18 11:16 IV Dye Shock ketorolac Allergy Vomiting Verified 01/20/18 11:16 lactose Allergy GI Upset Verified 01/20/18 11:16 moxifloxacin [From Avelox] Allergy Anaphylatic Verified 01/20/18 11:16 Shock quetiapine [From Seroquel] Allergy Restlessnes Verified 01/20/18 11:16 s Quinolones Allergy See Comment Verified 01/20/18 11:16 Sulfa (Sulfonamide Allergy See Comment Verified 01/20/18 11:16 Antibiotics) sulfamethoxazole Allergy Anaphylatic Verified 01/20/18 11:16 [From Bactrim] Shock tramadol Allergy Swelling Verified 01/20/18 11:16 Of Face,Lips,& Throat trazodone Allergy Swelling Verified 01/20/18 11:16 Of Face,Lips,& Throat trimethoprim [From Bactrim] Allergy Anaphylatic Verified 01/20/18 11:16 Shock ziprasidone [From Geodon] Allergy Restless Verified 01/20/18 11:16 PT HAS 39 MED ALLERGIES - Allergy See Comment Uncoded 01/20/18 11:16 ?NAMES PMH/Surg Hx/FS Hx/Imm Hx Previously Healthy: Yes Other History Of: Hepatitis C - Surgical History Surgical History: Yes Surgery Procedure, Year, and Place: Rt knee surgery- 1985 -. APPENDECTOMY. 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 Smoking Status (MU): Current Some Day Smoker Type: Cigarettes Amount Used/How Often: 1-2 cig/day When Did the Patient Quit Smoking/Using Tobacco: 3 months Household Exposure Type: Cigarettes - Immunization History Most Recent Influenza Vaccination: 2017 Most Recent Tetanus Shot: UTD Review of Systems Constitutional: Negative Skin: Negative Eyes: Negative ENT: Negative, Nasal Discharge, Sinus Pain/Tenderness Respiratory: Cough - with green yellow sputum Cardiovascular: Negative Gastrointestinal: Negative Genitourinary: Negative Motor: Negative Neurovascular: Negative Musculoskeletal: Negative Neurological: Negative Psychological: Negative All Other Systems Reviewed And Are Negative: Yes Physical Exam Triage Information Reviewed: Yes Appearance: No Pain Distress Vital Signs: Initial Vital Signs Temp 36.3 C 01/20/18 10:39 Pulse 70 01/20/18 10:39 Resp 20 01/20/18 10:39 BP 113/70 01/20/18 10:39 Pulse Ox 99 01/20/18 10:39 Eye Exam: Normal ENT Exam: Normal ENT: Positive: Nasal congestion, Nasal drainage, Sinus tenderness - left- maxillary, greenish drainage Dental Exam: Normal Neck exam: Normal Neck: Positive: 1 Respiratory: Positive: Lungs clear, Other: - coarse BS B/L. Negative: Crackles , Rhonchi, Stridor, Wheezing Cardiovascular Exam: Normal Cardiovascular: Positive: RRR Abdominal Exam: Normal Musculoskeletal Exam: Normal Neurological Exam: Normal Psychological Exam: Normal Skin Exam: Normal UC Diagnostic Evaluation - Laboratory O2 Sat by Pulse Oximetry: 99 Respiratory Course/Dx - Differential Dx/Diagnosis Provider Diagnoses: left maxillary sinus infection. acute bronchitis Discharge - Discharge Plan Condition: Stable Disposition: HOME Prescriptions: Azithromycin TAB* [Zithromax TAB (Z-BENI) 250 mg #6 tabs] 2 tab PO .TODAY, THEN 1 DAILY #1 beni Patient Education Materials: Sinusitis (ED), Acute Bronchitis (ED) Referrals: Ryan Villa MD [Primary Care Provider] - Additional Instructions: take medication as directed
== END 2018-01-20 11:33 | disposition home or self-care (01) ==
LOC: UCEAST 10:17
DX: J32.0 Chronic maxillary sinusitis (principal); J20.9 Acute bronchitis, unspecified; F17.210 Nicotine dependence, cigarettes, uncomplicated; Z88.2 Allergy status to sulfonamides; Z88.8 Allergy status to other drugs, medicaments and biological substances; Z88.3 Allergy status to other anti-infective agents; Z91.041 Radiographic dye allergy status; Z88.5 Allergy status to narcotic agent
CPT/HCPCS: 99212; G0463

== ENCOUNTER 2020-12-22 18:23 | Inpatient (IN) ==
[2020-12-22 21:25] LABS: Urine Appearance Clear; Urine Bilirubin Negative (Negative); Urine Blood Negative (Negative); Urine Color Yellow; Urine Glucose Negative (Negative); Urine Ketones Negative (Negative); Urine Nitrite Negative (Negative); Urine Protein Negative (Negative); Urine Specific Gravity 1.012 (1.010-1.030); Urine Urobilinogen Negative (Negative)
[2020-12-22 21:40] LABS: Urine Benzodiazepine Screen None Detected (None Detect); Urine Cannabinoids Screen None Detected (None Detect); Urine Opiates Screen None Detected (None Detect)
[2020-12-22 21:54] LABS: ABS Eosinophils 0.1 10^3/ul (0-0.6); ABS Lymphocytes 2.6 10^3/ul (1.0-4.8); ABS Monocytes 0.5 10^3/ul (0-0.8); ABS Neutrophils 3.6 10^3/ul (1.5-7.7); Eosinophil % 1.8 %; Hematocrit 39 % (42-52); Hemoglobin 13.7 g/dL (14.0-18.0); Lymphocyte % 37.9 %; Mean Corpuscular HGB Conc 35 g/dL (31-36); Mean Corpuscular Hemoglobin 32 pg (27-31); Mean Corpuscular Volume 91 fL (80-94); Mean Platelet Volume 6.2 fL (7.4-10.4); Platelet Count 327 10^3/uL (150-450); Red Blood Count 4.35 10^6 /uL (4.18-5.48); Red Cell Distribution Width 14 % (10-15); White Blood Count 6.9 10^3/uL (3.5-10.8)
[2020-12-22 22:11] LABS: Acetaminophen < 15 mcg/mL; Alcohol, S < 10 mg/dL (<10); Salicylate < 2.50 mg/dL (<30)
[2020-12-22 22:12] LABS: ALT 10 U/L (7-52); AST 13 U/L (13-39); Albumin 4.3 g/dL (3.2-5.2); Albumin/Globulin Ratio 1.7 (1-3); Alkaline Phosphatase 64 U/L (34-104); Anion Gap 4 mmol/L (2-11); BUN/Creatinine Ratio 10.3 (8-20); Blood Urea Nitrogen 8 mg/dL (6-24); CO2 Carbon Dioxide 32 mmol/L (22-32); Calcium 9.2 mg/dL (8.6-10.3); Chloride 102 mmol/L (101-111); EGFR Non-African American 105.8 (>60); Globulin 2.6 g/dL (2-4); Glucose 84 mg/dL (70-100); Potassium 3.7 mmol/L (3.5-5.0); Sodium 138 mmol/L (135-145); Total Protein 6.9 g/dL (6.4-8.9)
[2020-12-23 01:10] LABS: TSH Ultra Thyroid Stim Horm 0.71 mcIU/mL (0.34-5.60)
[2020-12-23] MEDS: Nicotine PATCH 7 MG/24 HR PATCH TRANSDERM SCH (09:43)
[2020-12-23] MEDS: Vitamin THERAPEUTIC TAB PO SCH (09:44)
[2020-12-23] MEDS: Carboxymethylcellulose/Glyceri 10 ML OPHTH.GEL lubricant eye gel BOTH EYES PRN (20:49)
[2020-12-23] MEDS: Eye Irrigation Solution 30 ML BOTTLE LEFT EYE ONE (22:36)
[2020-12-24] MEDS: Carboxymethylcellulose/Glyceri 10 ML OPHTH.GEL lubricant eye gel BOTH EYES PRN ×3 (03:33→20:26)
[2020-12-24] MEDS: Buprenorp/Nalox 8-2 MG FILM SL FILM SCH (09:13)
[2020-12-24] MEDS: Vitamin THERAPEUTIC TAB PO SCH (09:13)
[2020-12-24] MEDS: Nicotine PATCH 7 MG/24 HR PATCH TRANSDERM SCH (09:13)
[2020-12-24] MEDS: Dextran 70/Hypromellose Tears Eye Drops 15 ml BTL (for Artificials Tears) LEFT EYE PRN (17:45)
[2020-12-25] MEDS: Carboxymethylcellulose/Glyceri 10 ML OPHTH.GEL lubricant eye gel BOTH EYES PRN ×2 (02:45→20:19)
[2020-12-25] MEDS: Al Hydrox/Mg Hydrox/Simet LIQ 30 ML UDC PO PRN (05:35)
[2020-12-25] MEDS: Vitamin THERAPEUTIC TAB PO SCH (08:42)
[2020-12-25] MEDS: Nicotine PATCH 7 MG/24 HR PATCH TRANSDERM SCH (08:42)
[2020-12-25] MEDS: Buprenorp/Nalox 8-2 MG FILM SL FILM SCH (08:42)
[2020-12-25] MEDS: Dextran 70/Hypromellose Tears Eye Drops 15 ml BTL (for Artificials Tears) LEFT EYE PRN (18:13)
[2020-12-26] MEDS: Dextran 70/Hypromellose Tears Eye Drops 15 ml BTL (for Artificials Tears) LEFT EYE PRN ×3 (06:49→20:16)
[2020-12-26] MEDS: Carboxymethylcellulose/Glyceri 10 ML OPHTH.GEL lubricant eye gel BOTH EYES PRN ×3 (06:50→20:19)
[2020-12-26] MEDS: Vitamin THERAPEUTIC TAB PO SCH (08:25)
[2020-12-26] MEDS: Nicotine PATCH 7 MG/24 HR PATCH TRANSDERM SCH (08:25)
[2020-12-26] MEDS: Buprenorp/Nalox 8-2 MG FILM SL FILM SCH (08:27)
[2020-12-27] MEDS: Vitamin THERAPEUTIC TAB PO SCH (08:47)
[2020-12-27] MEDS: Nicotine PATCH 7 MG/24 HR PATCH TRANSDERM SCH (08:48)
[2020-12-27] MEDS: Buprenorp/Nalox 8-2 MG FILM SL FILM SCH (08:49)
[2020-12-27] MEDS: Dextran 70/Hypromellose Tears Eye Drops 15 ml BTL (for Artificials Tears) LEFT EYE PRN ×2 (08:50→20:44)
[2020-12-27] MEDS: Carboxymethylcellulose/Glyceri 10 ML OPHTH.GEL lubricant eye gel BOTH EYES PRN ×2 (08:50→20:44)
[2020-12-28] MEDS: Al Hydrox/Mg Hydrox/Simet LIQ 30 ML UDC PO PRN (04:58)
[2020-12-28] MEDS: Eye Irrigation Solution 30 ML BOTTLE LEFT EYE ONE (04:59)
[2020-12-28] MEDS: Dextran 70/Hypromellose Tears Eye Drops 15 ml BTL (for Artificials Tears) LEFT EYE PRN ×4 (04:59→21:14)
[2020-12-28] MEDS: Vitamin THERAPEUTIC TAB PO SCH (08:38)
[2020-12-28] MEDS: Buprenorp/Nalox 8-2 MG FILM SL FILM SCH (08:40)
[2020-12-28] MEDS: Nicotine PATCH 7 MG/24 HR PATCH TRANSDERM SCH (08:41)
[2020-12-28] MEDS: Carboxymethylcellulose/Glyceri 10 ML OPHTH.GEL lubricant eye gel BOTH EYES PRN ×3 (08:42→21:14)
[2020-12-28] MEDS: Nicotine GUM 2MG FRUIT FLAVOR PO PRN ×2 (16:38→20:49)
[2020-12-29] MEDS: Nicotine GUM 2MG FRUIT FLAVOR PO PRN ×10 (00:41→22:06)
[2020-12-29] MEDS: Vitamin THERAPEUTIC TAB PO SCH (08:16)
[2020-12-29] MEDS: Buprenorp/Nalox 8-2 MG FILM SL FILM SCH (08:18)
[2020-12-29] MEDS: Nicotine PATCH 7 MG/24 HR PATCH TRANSDERM SCH (08:20)
[2020-12-29] MEDS ORDERED: Polyethylene Glycol 3350 17 GM PACKET PO PRN (15:51)
[2020-12-29] MEDS: Dextran 70/Hypromellose Tears Eye Drops 15 ml BTL (for Artificials Tears) LEFT EYE PRN (22:06)
[2020-12-30] MEDS: Al Hydrox/Mg Hydrox/Simet LIQ 30 ML UDC PO PRN ×2 (00:12→07:07)
[2020-12-30] MEDS: Nicotine GUM 2MG FRUIT FLAVOR PO PRN ×10 (00:12→23:10)
[2020-12-30] MEDS: Vitamin THERAPEUTIC TAB PO SCH (08:33)
[2020-12-30] MEDS: Buprenorp/Nalox 8-2 MG FILM SL FILM SCH (08:34)
[2020-12-30] MEDS: Nicotine PATCH 7 MG/24 HR PATCH TRANSDERM SCH (08:34)
[2020-12-30] MEDS: Dextran 70/Hypromellose Tears Eye Drops 15 ml BTL (for Artificials Tears) LEFT EYE PRN (20:47)
[2020-12-31] MEDS: Nicotine GUM 2MG FRUIT FLAVOR PO PRN ×8 (01:17→22:36)
[2020-12-31] MEDS: Dextran 70/Hypromellose Tears Eye Drops 15 ml BTL (for Artificials Tears) LEFT EYE PRN ×2 (08:27→15:04)
[2020-12-31] MEDS: Vitamin THERAPEUTIC TAB PO SCH (08:27)
[2020-12-31] MEDS: Nicotine PATCH 7 MG/24 HR PATCH TRANSDERM SCH (08:30)
[2020-12-31] MEDS: Buprenorp/Nalox 8-2 MG FILM SL FILM SCH (08:31)
[2021-01-01] MEDS: Nicotine GUM 2MG FRUIT FLAVOR PO PRN ×8 (03:20→21:18)
[2021-01-01] MEDS: Dextran 70/Hypromellose Tears Eye Drops 15 ml BTL (for Artificials Tears) LEFT EYE PRN ×5 (03:39→21:18)
[2021-01-01] MEDS: Carboxymethylcellulose/Glyceri 10 ML OPHTH.GEL lubricant eye gel BOTH EYES PRN (05:32)
[2021-01-01] MEDS: Nicotine PATCH 7 MG/24 HR PATCH TRANSDERM SCH (08:04)
[2021-01-01] MEDS: Buprenorp/Nalox 8-2 MG FILM SL FILM SCH (08:04)
[2021-01-01] MEDS: Vitamin THERAPEUTIC TAB PO SCH (08:04)
[2021-01-01] MEDS: Al Hydrox/Mg Hydrox/Simet LIQ 30 ML UDC PO PRN (10:48)
[2021-01-02] MEDS: Nicotine GUM 2MG FRUIT FLAVOR PO PRN ×7 (02:44→20:23)
[2021-01-02] MEDS: Nicotine PATCH 7 MG/24 HR PATCH TRANSDERM SCH (08:27)
[2021-01-02] MEDS: Vitamin THERAPEUTIC TAB PO SCH (08:29)
[2021-01-02] MEDS: Buprenorp/Nalox 8-2 MG FILM SL FILM SCH (08:30)
[2021-01-02] MEDS: Dextran 70/Hypromellose Tears Eye Drops 15 ml BTL (for Artificials Tears) LEFT EYE PRN ×2 (08:30→14:36)
[2021-01-02] MEDS: Al Hydrox/Mg Hydrox/Simet LIQ 30 ML UDC PO PRN (16:43)
[2021-01-03] MEDS: Nicotine GUM 2MG FRUIT FLAVOR PO PRN ×6 (05:58→23:55)
[2021-01-03] MEDS: Nicotine PATCH 7 MG/24 HR PATCH TRANSDERM SCH (08:41)
[2021-01-03] MEDS: Vitamin THERAPEUTIC TAB PO SCH (08:42)
[2021-01-03] MEDS: Buprenorp/Nalox 8-2 MG FILM SL FILM SCH (08:42)
[2021-01-03] MEDS: Dextran 70/Hypromellose Tears Eye Drops 15 ml BTL (for Artificials Tears) LEFT EYE PRN ×2 (14:04→20:34)
[2021-01-04] MEDS: Nicotine GUM 2MG FRUIT FLAVOR PO PRN ×4 (04:32→12:23)
[2021-01-04] MEDS: Dextran 70/Hypromellose Tears Eye Drops 15 ml BTL (for Artificials Tears) LEFT EYE PRN ×3 (05:36→12:32)
[2021-01-04] MEDS: Nicotine PATCH 7 MG/24 HR PATCH TRANSDERM SCH (08:30)
[2021-01-04] MEDS: Vitamin THERAPEUTIC TAB PO SCH (08:31)
[2021-01-04] MEDS: Buprenorp/Nalox 8-2 MG FILM SL FILM SCH (08:33)
[2021-01-04 08:50] VITALS: BP 126/71
== END 2021-01-04 13:24 | disposition home or self-care (01) | DRG 897 ==
LOC: ED 18:23 → BSU 12-23 00:34
PROVIDERS: ADMIT Psychiatry & Neurology Psychiatry; ATTEND Psychiatry & Neurology Psychiatry